=== PATIENT | female | born 1985 | race Caucasian/White ===

== ENCOUNTER → 2016-05-22 | Outpatient (REF) | payer OTHER | LOC: M LAB REF 16:49 | PROVIDERS: ATTEND Obstetrics & Gynecology | DX: Z12.4 Encounter for screening for malignant neoplasm of cervix (principal) ==

== ENCOUNTER → 2017-06-19 | Outpatient (CLI) | payer BC ==
[2017-06-19 16:11] LABS: CONTROL LINE HCG INT CTR LINE PRESENT; HCG, SERUM QUALITATIVE POSITIVE (NEGATIVE)
== END ==
LOC: M LAB 15:19
DX: Z32.00 Encounter for pregnancy test, result unknown (principal)

== ENCOUNTER → 2017-07-09 | Outpatient (REF) | payer BC ==
[2017-07-09 13:53] LABS: HEMATOCRIT 41.3 % (36.0-47.0); MEAN CORPUSCULAR HGB CONC 33.9 g/dl (32.0-36.5); MEAN CORPUSCULAR VOLUME 91.4 fl (80.0-96.0); RED BLOOD COUNT 4.52 10^6/uL (4.00-5.40); RED CELL DISTRIBUTION WIDTH 12.6 % (11.5-14.5); WHITE BLOOD COUNT 6.8 10^3/uL (4.0-10.0)
[2017-07-09 14:53] LABS: HCG, SERUM QUANTITATIVE 55884 MIU/ML
[2017-07-10 08:50] LABS: RUBELLA IgG QUALITATIVE IMMUNE (IMMUNE)
[2017-07-10 09:11] LABS: HEPATITIS B SURFACE ANTIGEN NEGATIVE (NEGATIVE)
[2017-07-10 09:19] LABS: HEPATITIS C VIRUS ABY INDEX < 0.0 INDEX (<0.8)
[2017-07-10 11:32] LABS: HIV 1&2 SCREEN CENTAUR NEGATIVE (NEGATIVE)
== END ==
LOC: M LAB REF 13:12
DX: O36.80X0 Pregnancy with inconclusive fetal viability, not applicable or unspecified (principal)
CPT/HCPCS: 86762

== ENCOUNTER 2017-07-23 06:11 | Day surgery (SDC) | payer BC ==
[2017-07-23] MEDS ORDERED: LR 1,000 ML IV ×3 (06:30→09:00)
[2017-07-23] MEDS ORDERED: fentaNYL 100 MCG/2 ML INJECTION (J3010) As Ordered (06:38)
[2017-07-23] MEDS ORDERED: MIDAZOLAM INJ 2 MG/2 ML VIAL (J2250) As Ordered (06:38)
[2017-07-23] MEDS ORDERED: PROPOFOL 200 MG/20 ML VIAL As Ordered (06:38)
[2017-07-23] MEDS ORDERED: LIDOCAINE 2% INJ 100 MG/5 ML SDV (FOR ANES.) As Ordered (06:38)
[2017-07-23] MEDS ORDERED: ONDANSETRON 4MG/2ML VIAL (J2405) As Ordered (06:39)
[2017-07-23] MEDS ORDERED: dexameTHASONE 4 MG/ML 1ML VIAL (J1100) As Ordered (06:39)
[2017-07-23 06:42] LABS: HEMATOCRIT 40.8 % (36.0-47.0); HEMOGLOBIN 13.9 g/dl (12.0-15.5); MEAN CORPUSCULAR HEMOGLOBIN 30.9 pg (27.0-33.0); MEAN CORPUSCULAR HGB CONC 34.1 g/dl (32.0-36.5); MEAN CORPUSCULAR VOLUME 90.7 fl (80.0-96.0); PLATELET COUNT, AUTOMATED 211 10^3/uL (150-450); RED CELL DISTRIBUTION WIDTH 12.6 % (11.5-14.5); WHITE BLOOD COUNT 5.2 10^3/uL (4.0-10.0)
[2017-07-23] MEDS: LIDOCAINE W/EPINEPHRINE 1% 20ML VIAL As Ordered (06:45)
[2017-07-23] MEDS: ACETAMINOPHEN 650 MG SUPP As Ordered (07:38)
[2017-07-23] MEDS: ACETAMINOPHEN 650 MG SUPP PR (08:23)
[2017-07-23] MEDS ORDERED: KETOROLAC 60 MG/2 ML VIAL (J1885) As Ordered (08:25)
[2017-07-23] MEDS: METHYLERGONOVINE MALEATE 0.2 MG/ML VIAL (J2210) As Ordered (08:30)
[2017-07-23] MEDS ORDERED: fentaNYL 100 MCG/2 ML INJECTION (J3010) IV (09:00)
[2017-07-23] MEDS ORDERED: PERCOCET 5MG/325MG TAB PO (09:00)
[2017-07-23] MEDS ORDERED: ONDANSETRON 4MG/2ML VIAL (J2405) IV (09:00)
[2017-07-23] MEDS: NORCO, ANEXSIA 5/325MG TABLET (HYDROcodone/ACETAMINOPHEN) PO (09:10)
[2017-07-23] MEDS ORDERED: IBUPROFEN 800 MG TAB PO (12:00)
== END 2017-07-23 10:33 | disposition home or self-care (01) ==
LOC: M SDC 06:11
DX: O02.1 Missed abortion (principal); F41.9 Anxiety disorder, unspecified; F32.9 Major depressive disorder, single episode, unspecified; Z88.0 Allergy status to penicillin; Z87.891 Personal history of nicotine dependence
CPT/HCPCS: 59820

== ENCOUNTER 2017-07-27 06:46 | Emergency (ER) | payer BC ==
[2017-07-27 07:22] LABS: BASO # 0.1 10^3/uL (0.0-0.2); BASO % 0.9 % (0.0-1.0); EOS # 0.2 10^3/uL (0.0-0.50); EOS % 4.1 % (0.0-3.0); HEMATOCRIT 34.8 % (36.0-47.0); HEMOGLOBIN 11.7 g/dl (12.0-15.5); IMMATURE GRANULOCYTE % 0.2 % (0-3.0); LYMPH # 1.2 10^3/uL (1.5-6.5); LYMPH % 23.1 % (24.0-44.0); MEAN CORPUSCULAR HEMOGLOBIN 31.1 pg (27.0-33.0); MEAN CORPUSCULAR HGB CONC 33.6 g/dl (32.0-36.5); MEAN CORPUSCULAR VOLUME 92.6 fl (80.0-96.0); MONO # 0.6 10^3/uL (0.0-0.8); MONO % 10.8 % (0.0-5.0); NEUTROPHILS # 3.3 10^3/uL (1.8-7.7); NEUTROPHILS % 60.9 % (36.0-66.0); PLATELET COUNT, AUTOMATED 208 10^3/uL (150-450); RED BLOOD COUNT 3.76 10^6/uL (4.00-5.40); RED CELL DISTRIBUTION WIDTH 12.8 % (11.5-14.5); WHITE BLOOD COUNT 5.4 10^3/uL (4.0-10.0)
[2017-07-27] MEDS: NS 1,000 ML IV (07:39)
[2017-07-27 07:40] LABS: ALBUMIN 3.3 GM/DL (3.2-5.2); ALBUMIN/GLOBULIN RATIO 0.85 (1.00-1.93); ALKALINE PHOSPHATASE 61 U/L (45-117); ALT/SGPT 17 U/L (12-78); ANION GAP 6 MEQ/L (8-16); AST/SGOT 12 U/L (7-37); BILIRUBIN,DIRECT < 0.1 MG/DL (0.0-0.2); BILIRUBIN,TOTAL 0.2 MG/DL (0.2-1.0); BLOOD UREA NITROGEN 13 MG/DL (7-18); CALCIUM LEVEL 8.6 MG/DL (8.5-10.1); CARBON DIOXIDE LEVEL 25 MEQ/L (21-32); CHLORIDE LEVEL 112 MEQ/L (98-107); CREATININE FOR GFR 0.74 MG/DL (0.55-1.30); GLOMERULAR FILTRATION RATE > 60.0 (>60); GLUCOSE, FASTING 92 MG/DL (70-100); LIPASE 130 U/L (73-393); POTASSIUM SERUM 4.3 MEQ/L (3.5-5.1); SODIUM LEVEL 143 MEQ/L (136-145); TOTAL PROTEIN 7.2 GM/DL (6.4-8.2)
[2017-07-27] MEDS: METHYLERGONOVINE MALEATE 0.2 MG TAB PO (09:42)
== END 2017-07-27 09:59 | disposition home or self-care (01) ==
LOC: M ED 06:46
DX: N93.9 Abnormal uterine and vaginal bleeding, unspecified (principal); F33.9 Major depressive disorder, recurrent, unspecified; F41.9 Anxiety disorder, unspecified; Z88.0 Allergy status to penicillin; Z87.891 Personal history of nicotine dependence
CPT/HCPCS: 76856

== ENCOUNTER → 2018-04-09 | Outpatient (REF) | payer BC, OTHER ==
[~2018-04-09] MED LIST: METH0.2T53 PO; NORCOTAB PO
== END ==
LOC: M LABDRAWP 11:07
PROVIDERS: ATTEND Student in an Organized Health Care Education/Training Program
DX: Z32.01 Encounter for pregnancy test, result positive (principal); Z3A.00 Weeks of gestation of pregnancy not specified

== ENCOUNTER → 2018-04-11 | Outpatient (REF) | payer BC, OTHER | LOC: M LABDRAWP 13:45 | PROVIDERS: ATTEND Student in an Organized Health Care Education/Training Program | DX: Z32.01 Encounter for pregnancy test, result positive (principal); Z3A.00 Weeks of gestation of pregnancy not specified ==

== ENCOUNTER → 2018-04-14 | Outpatient (REF) | payer OTHER | LOC: M SFHCPLAZ 12:47 | PROVIDERS: ATTEND Student in an Organized Health Care Education/Training Program | DX: Z32.01 Encounter for pregnancy test, result positive (principal) ==

== ENCOUNTER 2018-04-17 10:48 | Emergency (ER) | payer OTHER ==
[~2018-04-17] VITALS: Ht 160 cm; Wt 79.1 kg
[2018-04-17 11:29] LABS: BASO # 0.1 10^3/uL (0.0-0.2); BASO % 1.1 % (0.0-1.0); EOS # 0.1 10^3/uL (0.0-0.50); EOS % 1.3 % (0.0-3.0); HEMATOCRIT 40.4 % (36.0-47.0); HEMOGLOBIN 13.5 g/dl (12.0-15.5); LYMPH # 1.4 10^3/uL (1.5-4.5); LYMPH % 25.9 % (24.0-44.0); MEAN CORPUSCULAR HEMOGLOBIN 30.2 pg (27.0-33.0); MEAN CORPUSCULAR HGB CONC 33.4 g/dl (32.0-36.5); MEAN CORPUSCULAR VOLUME 90.4 fl (80.0-96.0); MONO # 0.5 10^3/uL (0.0-0.8); MONO % 9.9 % (0.0-5.0); NEUTROPHILS # 3.2 10^3/uL (1.8-7.7); NEUTROPHILS % 61.4 % (36.0-66.0); PLATELET COUNT, AUTOMATED 227 10^3/uL (150-450); RED BLOOD COUNT 4.47 10^6/uL (4.00-5.40); WHITE BLOOD COUNT 5.3 10^3/uL (4.0-10.0)
--- NOTE | 2018-04-17 12:14 | REP ---
First trimester obstetric ultrasound including transabdominal, endovaginal and Doppler ultrasound assessment for vaginal bleeding is present for approximate 2 weeks: The uterus is anteverted and normal size measuring 8.8 x 5.8 x 7.6 cm. There is a fibroid posteriorly on the right measuring 3.1 x 2.7 x 3.5 cm. There is no intrauterine gestation. The endometrium is thickened measuring up to 20 mm. The right ovary measures 3.5 x 1.8 x 3.6 cm and is normal size. There is no dominant right ovarian mass or cyst. There is vascular flow in the right ovary with the Doppler resistive index of the parenchymal arteries measuring 0.50. The left ovary measures 4.3 x 2.7 x 4.4 cm and is normal size. There is a left ovarian cyst measuring 3.9 x 3.3 x 3.9 cm. Lateral to the left ovary there is a small hyperechoic structure of uncertain significance, measuring 12 x 8 x 7 mm. There is a small volume of free fluid in the pelvis. Impression: There is no intrauterine gestation. There is a 12 mm hyperechoic structure lateral to the left ovary. There is a left ovarian 3.9 cm cyst. There is a small volume of free fluid in the pelvis. Findings are nonspecific and could represent early gestation with the pole not yet visible, spontaneous , or ectopic gestation. Followup is recommended. Electronically Signed by Sriram Iverson MD 04/17/2018 12:06 P
[2018-04-17 12:43] VITALS: BP 126/71
== END 2018-04-17 12:45 | disposition home or self-care (01) ==
LOC: M ED 10:48
DX: O20.9 Hemorrhage in early pregnancy, unspecified (principal); O34.81 Maternal care for other abnormalities of pelvic organs, first trimester; N83.202 Unspecified ovarian cyst, left side; O99.341 Other mental disorders complicating pregnancy, first trimester; F41.9 Anxiety disorder, unspecified; F33.9 Major depressive disorder, recurrent, unspecified; Z3A.00 Weeks of gestation of pregnancy not specified; Z88.0 Allergy status to penicillin

== ENCOUNTER → 2018-04-21 | Outpatient (CLI) | payer OTHER ==
--- NOTE | 2018-04-22 09:15 | REP ---
Clinical: Dating and viability. Technique: Transabdominal and transvaginal first trimester obstetrical ultrasound with color Doppler evaluation. Findings: Bladder is distended and measures approximately 16.1 x 9.6 x 10.4 cm. Heterogeneous anteverted uterus measures 9.8 x 4.7 x 7.7 cm and includes 3.2 cm right posterior intramural fibroid. Endometrial complex measures 14.0 mm thickness. No intrauterine is identified. Left ovary measures 4.9 x 4.1 x 4.7 cm with 4.1 cm cyst likely representing corpus luteum. Right ovary is not definitively identified and a right adnexal mass measuring 2.5 x 2.0 x 1.7 cm demonstrating vascularity (RI 0.66) is visualized. Impression: 1. No intrauterine identified. Left ovary with presumed corpus luteal cyst. 2. Rounded mass in the right adnexa may represent ovary versus ectopic. Correlation with physical examination and serial HCG levels are recommended.
== END ==
LOC: M WHC 09:11
PROVIDERS: ATTEND Student in an Organized Health Care Education/Training Program
DX: N83.292 Other ovarian cyst, left side (principal); N85.4 Malposition of uterus; D25.9 Leiomyoma of uterus, unspecified; R19.09 Other intra-abdominal and pelvic swelling, mass and lump

== ENCOUNTER → 2018-04-28 | Outpatient (CLI) | payer OTHER | LOC: M LAB 17:30 | PROVIDERS: ATTEND Student in an Organized Health Care Education/Training Program | DX: Z32.01 Encounter for pregnancy test, result positive (principal) ==

== ENCOUNTER 2018-05-02 15:38 | Outpatient (CLI) | payer OTHER ==
[~2018-05-02] VITALS: Ht 160 cm; Wt 81.0 kg
[2018-05-02 16:00] VITALS: BP 133/61
[2018-05-02] MEDS ORDERED: METHOTREXATE 50MG/2ML VIAL (J9260 PER 50MG) IM ONE (16:00)
[2018-05-02 16:41] LABS: COLOR, URINE MANUAL DK YELLOW (YELLOW); PROTEIN, URINE MANUAL 1+ mg/dL (NEGATIVE)
[2018-05-02 16:42] LABS: BILIRUBIN, URINE MANUAL NEGATIVE (NEGATIVE); GLUCOSE, URINE (UA) MANUAL NEGATIVE (NEGATIVE); KETONE, URINE MANUAL 1+ mg/dL (NEGATIVE); UROBILINOGEN, URINE MANUAL NORMAL (NORMAL)
[2018-05-02 16:43] LABS: BLOOD URINE MANUAL POSITIVE (NEGATIVE); LEUKOCYTE ESTERASE, URINE MAN NEGATIVE (NEGATIVE); NITRITE, URINE MANUAL NEGATIVE (NEGATIVE)
[2018-05-02 17:00] VITALS: BP 107/59
[2018-05-02 17:02] LABS: AMORPHOUS SEDIMENT, URINE SMALL AMOUNT (NEGATIVE); BACTERIA, URINE SMALL AMOUNT; HYALINE CAST, URINE NONE SEEN /lpf (0-1); RBC, URINE 20-30 /hpf (0-3); SQUAMOUS EPITHELIAL CELL URINE LARGE AMOUNT /hpf (SMALL AMT)
[2018-05-07 06:16] LABS: APPEARANCE, URINE MANUAL HAZY (CLEAR)
== END 2018-05-02 17:15 | disposition home or self-care (01) ==
LOC: M LAB 15:38
PROVIDERS: ATTEND Obstetrics & Gynecology
DX: O00.109 Unspecified tubal pregnancy without intrauterine pregnancy (principal)
CPT/HCPCS: 36415; 81000; 86850; 86900; 86901; J9260

== ENCOUNTER → 2018-05-02 | Outpatient (REF) | payer OTHER | LOC: M LAB REF 13:56 | PROVIDERS: ATTEND Obstetrics & Gynecology | DX: Z32.00 Encounter for pregnancy test, result unknown (principal); O00.109 Unspecified tubal pregnancy without intrauterine pregnancy; Z3A.00 Weeks of gestation of pregnancy not specified ==

== ENCOUNTER → 2018-05-02 | Outpatient (CLI) | payer OTHER ==
[2018-05-02 10:52] LABS: HEMATOCRIT 39.3 % (36.0-47.0); HEMOGLOBIN 13.1 g/dl (12.0-15.5); MEAN CORPUSCULAR HEMOGLOBIN 30.3 pg (27.0-33.0); MEAN CORPUSCULAR HGB CONC 33.3 g/dl (32.0-36.5); PLATELET COUNT, AUTOMATED 222 10^3/uL (150-450); RED BLOOD COUNT 4.32 10^6/uL (4.00-5.40)
[2018-05-02 12:05] LABS: ALBUMIN 4.1 GM/DL (3.2-5.2); ALT/SGPT 18 U/L (12-78); BILIRUBIN,TOTAL 0.5 MG/DL (0.2-1.0); BLOOD UREA NITROGEN 7 MG/DL (7-18); CALCIUM LEVEL 8.9 MG/DL (8.5-10.1); CARBON DIOXIDE LEVEL 24 MEQ/L (21-32); CHLORIDE LEVEL 108 MEQ/L (98-107); CREATININE FOR GFR 0.78 MG/DL (0.55-1.30); GLOMERULAR FILTRATION RATE > 60.0 (>60); GLUCOSE, FASTING 91 MG/DL (70-100); HCG, SERUM QUANTITATIVE 5531 MIU/ML; POTASSIUM SERUM 4.2 MEQ/L (3.5-5.1); SODIUM LEVEL 140 MEQ/L (136-145); TOTAL PROTEIN 7.9 GM/DL (6.4-8.2)
== END ==
LOC: M LAB 10:31
PROVIDERS: ATTEND Obstetrics & Gynecology
DX: O00.109 Unspecified tubal pregnancy without intrauterine pregnancy (principal); Z3A.00 Weeks of gestation of pregnancy not specified

== ENCOUNTER → 2018-05-05 | Outpatient (CLI) | payer OTHER | LOC: M LAB 13:13 | PROVIDERS: ATTEND Obstetrics & Gynecology | DX: O00.109 Unspecified tubal pregnancy without intrauterine pregnancy (principal) ==

== ENCOUNTER → 2018-05-08 | Outpatient (CLI) | payer OTHER ==
[2018-05-08 13:54] LABS: HEMATOCRIT 36.6 % (36.0-47.0); HEMOGLOBIN 12.3 g/dl (12.0-15.5); MEAN CORPUSCULAR HEMOGLOBIN 30.1 pg (27.0-33.0); MEAN CORPUSCULAR HGB CONC 33.6 g/dl (32.0-36.5); MEAN CORPUSCULAR VOLUME 89.7 fl (80.0-96.0); PLATELET COUNT, AUTOMATED 215 10^3/uL (150-450); RED BLOOD COUNT 4.08 10^6/uL (4.00-5.40)
== END ==
LOC: M LAB 13:18
PROVIDERS: ATTEND Obstetrics & Gynecology
DX: O00.109 Unspecified tubal pregnancy without intrauterine pregnancy (principal)

== ENCOUNTER → 2018-05-15 | Outpatient (CLI) | payer OTHER | LOC: M LAB 14:23 | PROVIDERS: ATTEND Obstetrics & Gynecology | DX: O02.1 Missed abortion (principal) ==

== ENCOUNTER → 2018-05-21 | Outpatient (CLI) | payer OTHER | LOC: M LAB 07:52 | PROVIDERS: ATTEND Obstetrics & Gynecology | DX: O02.1 Missed abortion (principal) ==

== ENCOUNTER → 2018-05-29 | Outpatient (CLI) | payer OTHER ==
[~2018-05-29] MED LIST changes: +PERC5TAB12 PO
== END ==
LOC: M LAB 08:07
PROVIDERS: ATTEND Obstetrics & Gynecology
DX: O02.1 Missed abortion (principal)

== ENCOUNTER 2018-06-03 13:25 | Emergency (ER) | payer OTHER ==
[~2018-06-03] VITALS: Ht 160 cm; Wt 79.4 kg
[~2018-06-03 13:25] MED LIST changes: +HYDR-3715 PO; -NORCOTAB PO; -PERC5TAB12 PO
[2018-06-03] MEDS ORDERED: KETOROLAC 30 MG/ML VIAL (J1885) IV ONE (14:45)
[2018-06-03 14:57] LABS: BASO # 0.1 10^3/uL (0.0-0.2); BASO % 0.8 % (0.0-1.0); EOS # 0.2 10^3/uL (0.0-0.50); EOS % 2.7 % (0.0-3.0); HEMATOCRIT 39.8 % (36.0-47.0); HEMOGLOBIN 13.2 g/dl (12.0-15.5); LYMPH # 2.1 10^3/uL (1.5-4.5); LYMPH % 27.4 % (24.0-44.0); MEAN CORPUSCULAR HEMOGLOBIN 30.7 pg (27.0-33.0); MEAN CORPUSCULAR HGB CONC 33.2 g/dl (32.0-36.5); MEAN CORPUSCULAR VOLUME 92.6 fl (80.0-96.0); MONO # 0.8 10^3/uL (0.0-0.8); MONO % 10.3 % (0.0-5.0); NEUTROPHILS # 4.4 10^3/uL (1.8-7.7); NEUTROPHILS % 58.5 % (36.0-66.0); PLATELET COUNT, AUTOMATED 283 10^3/uL (150-450); WHITE BLOOD COUNT 7.5 10^3/uL (4.0-10.0)
[2018-06-03 15:11] LABS: INR 0.99; PROTHROMBIN TIME 13.2 SECONDS (12.1-14.4)
[2018-06-03 15:12] LABS: PARTIAL THROMBOPLASTIN TIME 25.9 SECONDS (25.4-37.6)
[2018-06-03 15:25] LABS: ALBUMIN 3.7 GM/DL (3.2-5.2); ALT/SGPT 14 U/L (12-78); BILIRUBIN,DIRECT 0.1 MG/DL (0.0-0.2); BILIRUBIN,TOTAL 0.5 MG/DL (0.2-1.0); BLOOD UREA NITROGEN 13 MG/DL (7-18); CALCIUM LEVEL 9.1 MG/DL (8.5-10.1); CARBON DIOXIDE LEVEL 27 MEQ/L (21-32); CHLORIDE LEVEL 108 MEQ/L (98-107); CREATININE FOR GFR 0.91 MG/DL (0.55-1.30); GLOMERULAR FILTRATION RATE > 60.0 (>60); GLUCOSE, FASTING 91 MG/DL (70-100); LIPASE 114 U/L (73-393); POTASSIUM SERUM 3.9 MEQ/L (3.5-5.1); SODIUM LEVEL 139 MEQ/L (136-145); TOTAL PROTEIN 7.1 GM/DL (6.4-8.2)
--- NOTE | 2018-06-03 15:59 | REP ---
Clinical: Left lower quadrant pain with history of ectopic . Technique: Transabdominal pelvic ultrasound followed by transvaginal examination for better evaluation of the endometrium and adnexa with color Doppler evaluation of the ovaries. Comparison: 07/27/2017 Findings: Bladder is unremarkable and measures 3.5 x 1.3 x 3.3 cm. Anteverted heterogeneous uterus measures 8.5 x 4.4 x 5.0 cm and includes posterior fibroid measuring 3.3 x 2.6 x 3.5 cm. The endometrial complex measures 5.0 mm thickness. Bilateral ovaries are normal in vascularity without evidence for torsion. Right ovary measures 3.9 x 2.8 x 2.0 cm ; R I = 0.55. Left ovary measures 5.8 x 3.8 x 3.6 cm and includes 3.0 cm presumed physiologic cyst and 3.6 x 3.2 x 2.8 cm complex echogenic focus which may represent hemorrhagic cyst or other possible lesion; R I = 0.54. Small to moderate amount of free fluid in the pelvis noted. . Impression: 1. Uterus with 3.5 cm posterior intramural fibroid. 2. Left ovary includes 3.0 cm cyst which is likely physiologic as well as 3.6 cm complex echogenic mass-like lesion which may represent hemorrhagic cyst however other pathology cannot be excluded. Follow-up examination in 4-6 weeks may be warranted to evaluate for resolution. Electronically Signed by Hector Alfredo MD 06/03/2018 03:50 P
[2018-06-03 16:29] LABS: HCG, SERUM QUANTITATIVE 26 MIU/ML
[2018-06-03] MEDS ORDERED: NS 1,000 ML IV ONE (17:15)
[2018-06-03] MEDS ORDERED: PERC5TAB12 PO (17:29)
[2018-06-03 17:44] VITALS: BP 124/56
[2018-06-03] MEDS ORDERED: PERCOCET 5MG/325MG TAB PO ONE (18:00)
--- NOTE | 2018-06-03 20:09 | HPE ---
DATE OF ADMISSION: 06/03/2018 A 32-year-old 2, para 0 female, presents with left-sided abdominal pain, increasing intensity as high as 8 out of 10, starting today. She has had intermittent pain on and off due to an ectopic , currently being treated with methotrexate. For pain management, she takes naproxen that her has or she has taken occasional Fioricet with some relief. She has light vaginal bleeding intermittently. This is a presentation to the emergency room (ER) where she was evaluated. MEDICAL HISTORY: 1. Cervical dysplasia. 2. Depression. SURGICAL HISTORY: 1. Loop electrosurgical excision procedure (LEEP), cone biopsy of the cervix. 2. Dilatation and curettage (D and C) procedure in 2014 for missed . ALLERGIES: PENICILLINS. SOCIAL HISTORY: Patient is . Denies cigarettes, alcohol, or drug use. FAMILY HISTORY: Noncontributory. PHYSICAL EXAMINATION: Blood pressure 124/56, pulse 56, respiratory rate 18, temperature 99.0, oxygen saturation 98%, room air. Appears mildly uncomfortable. Head and Neck Exam: Normal. Lungs: Clear. Heart: Regular rate and rhythm. Abdomen: Mildly tender in the left lateral side, near the mid axillary line. Soft, nondistended. No rebound, no guarding. Normoactive bowel sounds. Extremities: Nontender. Ultrasound: Normal endometrial stripe. Small amount of free fluid in the posterior cul-de-sac, pelvis, 3 cm complex mass left adnexa, hemorrhagic cyst versus other pathology. LABORATORY: Reveal the following: HCG levels - 05/08/2018 was 3255; 05/15/2018 was 927; 05/21/2018 was 399; 05/29/2018 was 193, 06/03/2018 was 26. Hemoglobin 13.2 grams per deciliter. ASSESSMENT: A 32-year-old 2, para 0-0-1-0 female, status post treatment with methotrexate, presents with abdominal pain. She has steadily decreasing beta hCG levels and along with stable vital signs and hemoglobin. PLAN: Will plan to continue expectant management because hCG levels are almost imperceptible. Patient should take something for pain other than nonsteroidals due to possible blood-thinning effects. Patient will be given a prescription for Percocet to take only when absolutely needed. She will followup with Dr. Jara next week for repeat hCG and evaluation. She was instructed to return to the ER for worsening pain.
--- NOTE | 2018-06-04 09:30 | ED PDOC ---
Post-Departure Follow-Up dr handley faxed formal report of pelvic us for fu Sonya Gerardo MD Jun 04, 2018 09:30
== END 2018-06-03 18:38 | disposition home or self-care (01) ==
LOC: M ED 13:25
DX: E28.2 Polycystic ovarian syndrome (principal); Z87.442 Personal history of urinary calculi; F41.9 Anxiety disorder, unspecified; F32.9 Major depressive disorder, single episode, unspecified
CPT/HCPCS: 76830; 76856; 80048; 80076; 81001; 81025; 83690; 84702; 85025; 85610; 85730; 87086; 93976; 96374; 99284; J1885

== ENCOUNTER → 2018-06-05 | Outpatient (CLI) | payer OTHER ==
[~2018-06-05] MED LIST changes: +PERC5TAB12 PO
== END ==
LOC: M LAB 08:08
PROVIDERS: ATTEND Obstetrics & Gynecology
DX: O02.1 Missed abortion (principal)

== ENCOUNTER → 2018-06-12 | Outpatient (CLI) | payer OTHER | LOC: M LAB 07:46 | PROVIDERS: ATTEND Obstetrics & Gynecology | DX: O02.1 Missed abortion (principal) ==

== ENCOUNTER 2018-08-29 10:47 | Emergency (ER) | payer OTHER ==
[~2018-08-29] VITALS: Ht 160 cm; Wt 73.4 kg
[2018-08-29] MEDS ORDERED: SPRI28TA PO (10:53)
[2018-08-29] MEDS ORDERED: PAXI40TA10 PO (10:53)
--- NOTE | 2018-08-29 12:00 | REP ---
Left hand series: Four views. History: Left hand pain. Findings: Four views of the left hand demonstrate overall normal mineralization. There is no evidence of fracture or subluxation. Bones, joints, and soft tissues are unremarkable. Impression: Negative radiographs of the left hand. Electronically Signed by Stanley Chavez MD 08/29/2018 11:51 A
[2018-08-29 13:00] VITALS: BP 145/69
== END 2018-08-29 13:07 | disposition home or self-care (01) ==
LOC: M ED 10:47
DX: G56.02 Carpal tunnel syndrome, left upper limb (principal); Z88.0 Allergy status to penicillin; Z79.899 Other long term (current) drug therapy; Z79.3 Long term (current) use of hormonal contraceptives

== ENCOUNTER 2018-09-12 04:51 | Emergency (ER) | payer OTHER ==
[~2018-09-12] VITALS: Ht 160 cm; Wt 73.4 kg
[~2018-09-12 04:51] MED LIST changes: +PAXI40TA10 PO; +SPRI28TA PO
[2018-09-12] MEDS ORDERED: KETOROLAC 60 MG/2 ML VIAL (J1885) IM ONE (07:00)
[2018-09-12] MEDS ORDERED: KETO10TAB PO ×2 (07:38→11:01)
[2018-09-12 07:58] VITALS: BP 128/75
== END 2018-09-12 08:11 | disposition home or self-care (01) ==
LOC: M ED 04:51
DX: K08.89 Other specified disorders of teeth and supporting structures (principal); Z79.899 Other long term (current) drug therapy; Z88.0 Allergy status to penicillin
CPT/HCPCS: 96372; 99283; J1885

== ENCOUNTER → 2019-09-01 | Outpatient (REF) | payer OTHER ==
[~2019-09-01] MED LIST changes: +KETO10TAB PO
[2019-09-01 18:32] LABS: FREE T4 0.96 NG/DL (0.76-1.46); THYROID STIMULATING HORMONE 0.818 uIU/ML (0.358-3.740)
== END ==
LOC: M SFHCPLAZ 15:48
PROVIDERS: ATTEND Student in an Organized Health Care Education/Training Program
DX: R00.2 Palpitations (principal)

== ENCOUNTER → 2019-09-23 | Outpatient (REF) | payer OTHER ==
[2019-09-23 14:54] LABS: ALBUMIN 3.8 GM/DL (3.2-5.2); ALT/SGPT 21 U/L (12-78); BILIRUBIN,TOTAL 0.5 MG/DL (0.2-1.0); BLOOD UREA NITROGEN 13 MG/DL (7-18); CALCIUM LEVEL 9.2 MG/DL (8.5-10.1); CARBON DIOXIDE LEVEL 28 MEQ/L (21-32); CHLORIDE LEVEL 106 MEQ/L (98-107); CREATININE FOR GFR 0.83 MG/DL (0.55-1.30); GLOMERULAR FILTRATION RATE > 60.0 (>60); GLUCOSE, FASTING 75 MG/DL (70-100); POTASSIUM SERUM 4.5 MEQ/L (3.5-5.1); SODIUM LEVEL 137 MEQ/L (136-145); TOTAL PROTEIN 7.4 GM/DL (6.4-8.2)
== END ==
LOC: M SFHCPLAZ 10:48
PROVIDERS: ATTEND Family Medicine
DX: R51 Headache (principal); R00.2 Palpitations

== ENCOUNTER → 2019-10-28 | Outpatient (REF) | payer OTHER | LOC: M WHC 14:00 | PROVIDERS: ATTEND Nurse Practitioner Women's Health | DX: Z12.4 Encounter for screening for malignant neoplasm of cervix (principal) ==

== ENCOUNTER → 2020-01-01 | Outpatient (REF) | payer OTHER | LOC: M SFHCPLAZ 10:38 | PROVIDERS: ATTEND Family Medicine | DX: Z13.21 Encounter for screening for nutritional disorder (principal) ==

== ENCOUNTER 2020-02-15 13:27 | Emergency (ER) | payer OTHER ==
[~2020-02-15] VITALS: Ht 160 cm; Wt 86.0 kg
[2020-02-15] MEDS ORDERED: BUSP15TA47 (13:38)
--- NOTE | 2020-02-15 14:46 | REP ---
INDICATION: fall. COMPARISON: Abdomen and pelvis CT dated 12/02/2013. TECHNIQUE: There are three views. FINDINGS: There is a questionable fracture of the distal sacrum on the lateral view. Consider CT for confirmation. The sacral a ala and foramen are otherwise unremarkable. The sacroiliac articulations are unremarkable. IMPRESSION: Questionable sacral fracture. Consider CT for confirmation. <Electronically signed by Sriram Iverson > 02/15/20 [id number]
--- NOTE | 2020-02-15 15:35 | REP ---
INDICATION: possible sacral fracture. COMPARISON: Plain film study of the sacrum earlier today. TECHNIQUE: CT of the pelvis without IV or bowel contrast. FINDINGS: There is no sacral fracture by CT. There is no pelvic fracture by CT. There is no free fluid in the pelvis. The bladder is unremarkable. There is a right adnexal cyst measuring 3.2 x 5.6 cm. Left adnexa is unremarkable. The uterus is unremarkable. IMPRESSION: No sacral or pelvic fracture. Right adnexal cyst as described. <Electronically signed by Sriram Iverson > 02/15/20 [id number]
[2020-02-15] MEDS ORDERED: IBUPROFEN 800 MG TAB PO ONE (15:45)
[2020-02-15 16:15] VITALS: BP 141/94
== END 2020-02-15 16:17 | disposition home or self-care (01) ==
LOC: M ED 13:27
DX: S30.0XXA Contusion of lower back and pelvis, initial encounter (principal); W10.8XXA Fall (on) (from) other stairs and steps, initial encounter; Y92.9 Unspecified place or not applicable; Y93.9 Activity, unspecified; Y99.9 Unspecified external cause status; N83.291 Other ovarian cyst, right side; F33.9 Major depressive disorder, recurrent, unspecified; F41.9 Anxiety disorder, unspecified; Z88.0 Allergy status to penicillin; Z79.899 Other long term (current) drug therapy

== ENCOUNTER → 2020-02-22 | Outpatient (REF) | payer OTHER ==
[~2020-02-22] MED LIST changes: +BUSP15TA47
[2020-02-22 14:08] LABS: HCG, SERUM QUALITATIVE NEGATIVE (NEGATIVE)
== END ==
LOC: M SFHCPLAZ 09:11
PROVIDERS: ATTEND Family Medicine
DX: Z32.00 Encounter for pregnancy test, result unknown (principal)

== ENCOUNTER → 2020-03-07 | Outpatient (CLI) | payer OTHER ==
--- NOTE | 2020-03-07 11:35 | REP ---
INDICATION: N83.201 RT OVARIAN CYST COMPARISON: CT dated 02/15/2020 and pelvic ultrasound dated 06/03/2018 TECHNIQUE: Transabdominal pelvic ultrasound followed by transvaginal examination for better evaluation of the endometrium and adnexa with color Doppler evaluation of the ovaries. FINDINGS: Bladder is unremarkable and measures 9.3 x 6.9 x 13.9 cm. Normal anteverted uterus measures 8.9 x 4.5 x 4.9 cm. The endometrial complex measures 2.9 mm thickness. 3.5 x 3.3 x 3.6 cm posterior subserosal heterogeneous hypoechoic lesion likely represents fibroid. Right ovary measures 5.6 x 2.6 x 2.7 cm and includes 4.8 x 2.3 x 2.1 cm with 1 cm daughter cyst. Left ovary appears normal and measures 3.2 x 1.7 x 1.3 cm. No pelvic fluid or adnexal mass lesion. IMPRESSION: 1. Posterior subserosal fibroid unchanged compared to prior pelvic ultrasound. 2. Right ovarian cyst with small daughter cyst is likely physiologic and may represent the cyst on prior CT dated 02/15/2020, but represents a new finding as compared to pelvic ultrasound dated 06/03/2018. Consider follow-up ultrasound in 4-6 weeks if the patient remains symptomatic. <Electronically signed by Hector Alfredo > 03/07/20 [id number]
== END ==
LOC: M WHC 10:56
PROVIDERS: ATTEND Student in an Organized Health Care Education/Training Program
DX: N83.201 Unspecified ovarian cyst, right side (principal)

== ENCOUNTER → 2020-03-22 | Outpatient (REF) | payer OTHER ==
[2020-03-22 18:15] LABS: APPEARANCE, URINE HAZY (CLEAR); BACTERIA, URINE AUTO NEGATIVE (NEGATIVE); BILIRUBIN, URINE AUTO NEGATIVE (NEGATIVE); BLOOD, URINE BLOOD NEGATIVE (NEGATIVE); COLOR, URINE YELLOW (YELLOW); GLUCOSE, URINE (UA) AUTO NEGATIVE (NEGATIVE); KETONE, URINE AUTO NEGATIVE (NEGATIVE); LEUKOCYTE ESTERASE, URINE AUTO 2+ (NEGATIVE); MUCUS, URINE SMALL (NEGATIVE); NITRITE, URINE AUTO NEGATIVE (NEGATIVE); PROTEIN, URINE AUTO NEGATIVE (NEGATIVE); RBC, URINE AUTO 2 /HPF (0-3); SPECIFIC GRAVITY URINE AUTO 1.025 (1.002-1.035); SQUAMOUS EPITHELIAL CELL UR AU 7 /HPF (0-6); UROBILINOGEN, URINE AUTO 0.2 mg/dL (0.0-2.0); WBC, URINE AUTO 5 /HPF (0-3)
[2020-03-22 18:31] LABS: BLOOD UREA NITROGEN 16 MG/DL (7-18); CALCIUM LEVEL 9.5 MG/DL (8.5-10.1); CARBON DIOXIDE LEVEL 30 MEQ/L (21-32); CHLORIDE LEVEL 106 MEQ/L (98-107); CHOLESTEROL LEVEL 181 MG/DL (<200); CREATININE FOR GFR 0.88 MG/DL (0.55-1.30); GLOMERULAR FILTRATION RATE > 60.0 (>60); GLUCOSE, FASTING 92 MG/DL (70-100); HDL CHOLESTEROL 58 MG/DL (>40); LDL CHOLESTEROL 95 MG/DL (<100); NON-HDL-C 123 MG/DL; POTASSIUM SERUM 4.7 MEQ/L (3.5-5.1); SODIUM LEVEL 139 MEQ/L (136-145); TRIGLYCERIDES LEVEL 140 MG/DL (<150)
[2020-03-22 19:20] LABS: HEMOGLOBIN A1c 5.2 %
[2020-03-22 19:24] LABS: BASO # 0.1 10^3/uL (0.0-0.2); BASO % 0.8 % (0.0-1.0); EOS # 0.1 10^3/uL (0.0-0.5); EOS % 1.2 % (0.0-3.0); HEMATOCRIT 40.9 % (36.0-47.0); HEMOGLOBIN 13.4 g/dl (12.0-15.5); LYMPH # 1.9 10^3/uL (1.5-5.0); LYMPH % 24.5 % (24.0-44.0); MEAN CORPUSCULAR HEMOGLOBIN 30.5 pg (27.0-33.0); MEAN CORPUSCULAR HGB CONC 32.8 g/dl (32.0-36.5); MEAN CORPUSCULAR VOLUME 93.2 fl (80.0-96.0); MONO # 0.8 10^3/uL (0.0-0.8); MONO % 10.4 % (0.0-5.0); NEUTROPHILS # 4.8 10^3/uL (1.5-8.5); NEUTROPHILS % 62.8 % (36.0-66.0); PLATELET COUNT, AUTOMATED 138 10^3/uL (150-450); RED BLOOD COUNT 4.39 10^6/uL (4.00-5.40); WHITE BLOOD COUNT 7.6 10^3/uL (4.0-10.0)
== END ==
LOC: M SFHCPLAZ 14:43
PROVIDERS: ATTEND Family Medicine
DX: Z13.1 Encounter for screening for diabetes mellitus (principal); R10.9 Unspecified abdominal pain; Z13.220 Encounter for screening for lipoid disorders

== ENCOUNTER → 2020-06-24 | Outpatient (REF) | payer OTHER ==
[2020-06-24 14:13] LABS: APPEARANCE, URINE CLEAR (CLEAR); BACTERIA, URINE AUTO NEGATIVE (NEGATIVE); BILIRUBIN, URINE AUTO NEGATIVE (NEGATIVE); BLOOD, URINE BLOOD 1+ (NEGATIVE); COLOR, URINE YELLOW (YELLOW); GLUCOSE, URINE (UA) AUTO NEGATIVE (NEGATIVE); KETONE, URINE AUTO NEGATIVE (NEGATIVE); LEUKOCYTE ESTERASE, URINE AUTO NEGATIVE (NEGATIVE); MUCUS, URINE SMALL (NEGATIVE); NITRITE, URINE AUTO NEGATIVE (NEGATIVE); PROTEIN, URINE AUTO NEGATIVE (NEGATIVE); RBC, URINE AUTO 0 /HPF (0-3); SPECIFIC GRAVITY URINE AUTO 1.019 (1.002-1.035); SQUAMOUS EPITHELIAL CELL UR AU 1 /HPF (0-6); UROBILINOGEN, URINE AUTO 0.2 mg/dL (0.0-2.0); WBC, URINE AUTO 0 /HPF (0-3)
[2020-06-24 14:41] LABS: HCG, SERUM QUALITATIVE NEGATIVE (NEGATIVE)
== END ==
LOC: M PLALAB 13:33
PROVIDERS: ATTEND Student in an Organized Health Care Education/Training Program
DX: R10.9 Unspecified abdominal pain (principal)

== ENCOUNTER → 2020-06-24 | Outpatient (REF) | payer OTHER | LOC: M SFHCPLAZ 10:28 | PROVIDERS: ATTEND Family Medicine | DX: Z53.9 Procedure and treatment not carried out, unspecified reason (principal); R10.9 Unspecified abdominal pain ==

== ENCOUNTER → 2020-07-12 | Outpatient (REF) | payer OTHER ==
[2020-07-12 10:31] LABS: APPEARANCE, URINE CLEAR (CLEAR); BACTERIA, URINE AUTO NEGATIVE (NEGATIVE); BILIRUBIN, URINE AUTO NEGATIVE (NEGATIVE); BLOOD, URINE BLOOD NEGATIVE (NEGATIVE); COLOR, URINE YELLOW (YELLOW); GLUCOSE, URINE (UA) AUTO NEGATIVE (NEGATIVE); KETONE, URINE AUTO NEGATIVE (NEGATIVE); LEUKOCYTE ESTERASE, URINE AUTO NEGATIVE (NEGATIVE); NITRITE, URINE AUTO NEGATIVE (NEGATIVE); PROTEIN, URINE AUTO NEGATIVE (NEGATIVE); RBC, URINE AUTO 0 /HPF (0-3); SPECIFIC GRAVITY URINE AUTO 1.012 (1.002-1.035); SQUAMOUS EPITHELIAL CELL UR AU 1 /HPF (0-6); UROBILINOGEN, URINE AUTO 0.2 mg/dL (0.0-2.0); WBC, URINE AUTO 1 /HPF (0-3)
== END ==
LOC: M SFHCPLAZ 09:35
PROVIDERS: ATTEND Student in an Organized Health Care Education/Training Program
DX: R35.0 Frequency of micturition (principal)

== ENCOUNTER → 2020-07-15 | Outpatient (REF) | payer OTHER ==
[2020-07-15 17:46] LABS: HCG, SERUM QUALITATIVE NEGATIVE (NEGATIVE)
== END ==
LOC: M PLALAB 14:17
PROVIDERS: ATTEND Student in an Organized Health Care Education/Training Program
DX: R35.0 Frequency of micturition (principal)

== ENCOUNTER → 2020-07-18 | Outpatient (CLI) | payer OTHER ==
--- NOTE | 2020-07-19 03:10 | REP ---
INDICATION: RT FLANK PAIN ? STONES COMPARISON: 12/02/2013 TECHNIQUE: Axial noncontrast images from the lung bases to the pubic symphysis with coronal and sagittal reformations. This CT examination was performed using the following dose reduction techniques: Automated exposure control, adjustment of mA and/or kv according to the patient's size, and use of iterative reconstruction technique. FINDINGS: Lung bases are clear. Visualized heart and pericardium normal. Right kidney includes 3 mm and 5 mm nonobstructing nephroliths while the left kidney includes 2 mm nonobstructing nephrolith. No acute perinephric stranding, hydroureteronephrosis or obstructing ureteral calculus is identified. Bilateral ureters and bladder appear normal. Liver, spleen, pancreas, gallbladder, bilateral adrenal glands are normal. The enteric system is unremarkable and without obstruction or acute inflammatory process. Normal terminal ileum and appendix identified in the right lower quadrant. Pelvis demonstrates normal bladder and age-appropriate uterus/adnexa. No ascites. No free air. No adenopathy. No focal inflammatory stranding. Abdominal aorta without aneurysm. Musculoskeletal structures are intact and without acute osseous abnormality. IMPRESSION: Nonobstructing bilateral nephrolithiasis. <Electronically signed by Hector Alfredo > 07/19/20 [id number]
== END ==
LOC: M RAD 07:47
PROVIDERS: ATTEND Student in an Organized Health Care Education/Training Program
DX: R10.9 Unspecified abdominal pain (principal)

== ENCOUNTER → 2020-08-04 | Outpatient (CLI) | payer OTHER ==
--- NOTE | 2020-08-04 16:35 | REP ---
INDICATION: URINATION FREQUENCY COMPARISON: None TECHNIQUE: Real time B-mode ultrasound examination using curved array transducer. FINDINGS: Bladder is normal in appearance without wall thickening or mass lesion. Left ureteral jet is identified while the right ureteral jet was not visualized during examination. Prevoid bladder measures 13.6 x 8.7 x 4.8 cm (371 cc). Postvoid bladder completely emptied. Postvoid residual: 0% IMPRESSION: 1. No visible right ureteral jet noted during examination and correlation is recommended. 2. Bladder itself is unremarkable. <Electronically signed by Hector Alfredo > 08/04/20 [id number]
== END ==
LOC: M RAD 16:00
PROVIDERS: ATTEND Student in an Organized Health Care Education/Training Program
DX: R35.0 Frequency of micturition (principal)

== ENCOUNTER → 2020-08-09 | Outpatient (REF) | payer OTHER | LOC: M SFHCPLAZ 16:28 | PROVIDERS: ATTEND Family Medicine | DX: Z78.9 Other specified health status (principal) ==

== ENCOUNTER → 2020-12-13 | Outpatient (REF) | payer OTHER | LOC: M SFHCWAGY 19:03 | PROVIDERS: ATTEND Obstetrics & Gynecology | DX: Z12.4 Encounter for screening for malignant neoplasm of cervix (principal); R87.610 Atypical squamous cells of undetermined significance on cytologic smear of cervix (ASC-US) ==

== ENCOUNTER 2021-01-22 05:10 | Emergency (ER) | payer OTHER ==
[~2021-01-22] VITALS: Ht 160 cm; Wt 90.0 kg
[2021-01-22] MEDS ORDERED: VENL37.598 (05:26)
[2021-01-22] MEDS ORDERED: ETON1VAG3 (05:26)
[2021-01-22 06:08] LABS: BASO # 0.1 10^3/uL (0.0-0.2); EOS # 0.2 10^3/uL (0.0-0.5); EOS % 3.2 % (0.0-3.0); HEMATOCRIT 40.4 % (36.0-47.0); HEMOGLOBIN 13.6 g/dl (12.0-15.5); LYMPH # 2.2 10^3/uL (1.5-5.0); LYMPH % 34.3 % (24.0-44.0); MEAN CORPUSCULAR HEMOGLOBIN 30.8 pg (27.0-33.0); MEAN CORPUSCULAR HGB CONC 33.7 g/dl (32.0-36.5); MEAN CORPUSCULAR VOLUME 91.4 fl (80.0-96.0); MONO # 0.5 10^3/uL (0.0-0.8); MONO % 7.3 % (2.0-8.0); NEUTROPHILS # 3.4 10^3/uL (1.5-8.5); NEUTROPHILS % 53.9 % (36.0-66.0); PLATELET COUNT, AUTOMATED 273 10^3/uL (150-450); RED BLOOD COUNT 4.42 10^6/uL (4.00-5.40); WHITE BLOOD COUNT 6.3 10^3/uL (4.0-10.0)
[2021-01-22] MEDS ORDERED: ONDANSETRON 4MG/2ML VIAL IV ONE (06:35)
[2021-01-22] MEDS ORDERED: KETOROLAC 30 MG/ML 1ML VIAL IV ONE (06:35)
[2021-01-22] MEDS ORDERED: NS 1,000 ML IV ONE (06:35)
--- NOTE | 2021-01-22 06:37 | REPVR ---
PROCEDURE INFORMATION: Exam: CT Abdomen And Pelvis Without Contrast Exam date and time: 01/22/2021 5:44 AM Age: 35 years old Clinical indication: Abdominal pain; Flank; Right; Additional info: Rule out nephrolithiasis TECHNIQUE: Imaging protocol: Computed tomography of the abdomen and pelvis without contrast. Radiation optimization: All CT scans at this facility use at least one of these dose optimization techniques: automated exposure control; mA and/or kV adjustment per patient size (includes targeted exams where dose is matched to clinical indication); or iterative reconstruction. COMPARISON: 1. CT ABD PELVIS W/O CONTRAST 2020-07-18 08:[address] Pelvis without contrast 2020-02-15 15:14 FINDINGS: Liver: Normal. No mass. Gallbladder and bile ducts: Normal. No calcified stones. No ductal dilation. Pancreas: Normal. No ductal dilation. Spleen: Normal. No splenomegaly. Adrenal glands: Normal. No mass. Kidneys and ureters: Obstructing right ureteral pelvic 5 x 5 mm calculus with moderate right hydronephrosis. Swelling of the right kidney. Stomach and bowel: Unremarkable. No obstruction. No mucosal thickening. Appendix: No evidence of appendicitis. Intraperitoneal space: Unremarkable. No free air. No significant fluid collection. Vasculature: Unremarkable. No abdominal aortic aneurysm. Lymph nodes: Unremarkable. No enlarged lymph nodes. Urinary bladder: Unremarkable as visualized. Reproductive: Suspect uterine fibroids. Bones/joints: Unremarkable. No acute fracture. Soft tissues: Unremarkable. Other findings: Nonobstructing additional couple small 2-3 mm calculi. IMPRESSION: 1. Obstructing right ureteral pelvic 5 x 5 mm calculus with moderate right hydronephrosis. 2. Nonobstructing additional couple small 2-3 mm calculi. Electronically signed by: Eitan Hirsch On 01/22/2021 06:36:47 AM
[2021-01-22 06:38] LABS: BLOOD UREA NITROGEN 16 MG/DL (7-18); CALCIUM LEVEL 8.7 MG/DL (8.5-10.1); CARBON DIOXIDE LEVEL 23 MEQ/L (21-32); CHLORIDE LEVEL 111 MEQ/L (98-107); CREATININE FOR GFR 0.96 MG/DL (0.55-1.30); GLOMERULAR FILTRATION RATE > 60.0 (>60); GLUCOSE, FASTING 92 MG/DL (70-100); POTASSIUM SERUM 3.9 MEQ/L (3.5-5.1); SODIUM LEVEL 141 MEQ/L (136-145)
--- OUTSIDE RECORDS SUMMARY | 2021-01-22 06:41 | CCD ---
Author Author [facility] Organization [facility] Address Unknown Phone Unavailable Care Team Providers Care Claim Approver Name Role Phone Gracie Ram Unavailable PROBLEMS Type Condition ICD9-CM Code [id number] Code Onset Dates Condition S tatus W/U Status Risk SNOMED Code Notes Problem Adjustment disorder with depressed mood F43.21 Active confirmed 83681492 Problem Miscarried within last 12 months Z87.59 Active confirmed 932967109 Problem Panic disorder [episodic paroxysmal anxiety] F41.0 Active confirmed 728448070 Problem Vaccination refused by patient Z28.21 Active c onfirmed 235184111742 Problem Recommendation refused by patient Z53.20 Active confirmed 827568282 Problem Intermittent palpitations R00.2 Active confirmed 135217452 Problem Contusion of coccyx, sequela S30.0XXS Active confir med 079470301 Problem Generalized anxiety disorder F41.1 Active confirme d 24356123 Problem BMI 33.0-33.9,adult Z68.33 Active confirmed 740477910 Problem Thrombocytopenia D69.6 Active confirmed 415 586799 Problem Patient refused evaluation or treatment Z53.20 Active confirmed 909112236 Problem Other chronic pain G89.29 Active confirmed 8 9142233 Problem Right flank pain R10.9 Active confirmed 162 867109 Problem Anxiety disorder, unspecified F41.9 Active confirm ed 259018476 Problem Bilateral nephrolithiasis N20.0 Active confirmed 00831170 Problem Ovarian cyst, right N83.201 Active confirmed 59985635133298677 Problem Routine general medical examination at a [facility] acility Z00.00 Active confirmed 979930759 Problem Depression F32.9 Active confirmed 58453237 Problem Urination frequency R35.0 Active confirmed 549589848 Problem Noncompliance Z91.19 Active confirmed 764923 9 Problem Feeling of incomplete bladder emptying R39.14 A ctive confirmed 276356103 Problem Low back pain M54.5 Active confirmed 155829 009 ALLERGIES Allergen (clinical drug ingredient) Drug/Non Drug Allergy do cumented on EMR Reaction Allergy Type Onset Date Status penicillian Rash Non Drug Allergy Active ENCOUNTERS from 1987 to 2020-11-27 Encounter Location Date Provider Diagnosis [facility] [place] [address] [phone] [place] [address] July, Gracie Ram Urination frequency R35.0 ; Feeling of incomplete bladder emptying R39.14 ; Low back pain M54.5 ; Patient refused evaluation or treatment Z53.20 and Noncompliance Z91.19 IMMUNIZATIONS Vaccine Route Administration Date Status TD Adult 0.5mL Tetanus IM Intramuscular August 09, 2020 Administ ered SOCIAL HISTORY Tobacco Use: Social History Observation Description Date Details (start date - stop date) Current Smoker Sex Assigned At : Social History Observation Description Sex Assigned At Unknown Education: Question Answer Notes Level of Education: High School Audit Question Answer Notes Total Score: 0 Interpretation: Alcohol Education Language: Question Answer Notes Languages spoken: Slovak Protestant: Question Answer Notes Protestant No islam beliefs that would impact health care. Sexual Hx: Question Answer Notes Had sex in the last 12 months (vaginal, oral, or anal)? Yes with Men only Use protection? Yes Drug and Alcohol Question Answer Notes Total Score: 0 Interpretation: No problems reported Tobacco Use: Question Answer Notes Are you a: current smoker Additional Findings: Tobacco User REASON FOR REFERRAL No Information VITAL SIGNS Weight 197.6 lbs July, Height 63 in July, BMI 35.00 kg/m2 July, Heart Rate 78 /min July, Respiratory Rate 18 /min July, Temperature 98.3 degrees Fahrenheit July, Oximetry 97 July, Blood pressure systolic 114 mm Hg July, Blood pressure diastolic 72 mm Hg July, MEDICATIONS Medication SIG (Take, Route, Frequency, Duration) Notes Start Da te End Date Status Paxil 40 MG 1 tablet in the morning Orally Once a day for 90 day(s) Active Sulfamethoxazole-Trimethoprim 800-160 MG 1 tablet Oral ly Twice a day for 14 day(s) Mar, Not-Taking busPIRone HCl 15 MG 1 tablet Orally Twice a day(total 25mg in AM , 15mg in PM) Feb, Active Tamsulosin HCl 0.4 MG 1 capsule Orally Once a day for 21 day(s) July, Active Folic Acid 400 MCG 1 tablet Orally Once a day for 90 day(s) Mar, Not-Taking Sprintec 28 0.25-35 MG-MCG 1 tablet Orally Once a day for 90 day(s) Active busPIRone HCl 10 MG 1 tablet Orally in AM(total 25mg in AM and 1 5mg in PM) Feb, Active PROCEDURES No Information RESULTS Component Value Reference Range UA URINALYSIS Reviewed date:07/17/2020 22:04:16 Interpretation: Performing Lab:[facility], [facility] [address] [facility] [address] , ,[place] [address] BLADDER U/S Reviewed date:11/23/2020 14:20:03 Interpretation:07/28/20 @1:30 Performing Lab:[facility], [place] [address] REASON FOR VISIT follow up results MEDICAL (GENERAL) HISTORY Type Description Date Medical History ABNORMAL PAP Medical History ABNORMAL JUILETA Surgical History breast biopsy - left 2009 Surgical History lump in left breast removed-- Benign 2014 Surgical History LEEP procedure (womans persp ective)-- Severe squamous dysplasia (SUSANA III ). 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 UA and bladder US ordered. HCG ordered to rule out as patient as patient reported urinary frequency, incomplete bladder emptying, and also has upcoming abd/pelvis CT appointment. Patient is aware she needs to contact clinic or seek immediate medical care if she has any fever, chills, urinary urgency//dysuria, suprapubic pain, or flank pain. All the above findings, exam, assessments, and plans were discussed with precepting attending during office hour 07/12/2020July, Feeling of incomplete bladder emptying (ICD-10 - R39.14) Patient self-reported urinary frequency as well as the sensation of incomplete bladder emptying. UA and bladder US ordered. HCG ordered to rule out as patient as patient reported urinary frequency, incomplete bladder emptying, and also has upcoming abd/pelvis CT appointment. Patient is aware she needs to contact clinic or seek immediate medical care if she has any fever, chills, urinary urgency//dysuria, suprapubic pain, or flank pain All the above findings, exam, assessments, and plans were discussed with precepting attending during office hour 07/12/2020July, Low back pain (ICD-10 - M54.5) Back exercises material was printed Likely associated with referred pain from ovarian cyst vs muscle strain. Patient declined physical therapy. Advised Tylenol and ibuprofen as needed, daily maximum dose of 3000 mg of Tylenol and Ibuprofen discussed were discussed with the patient. Safety plan discussed with patient regarding when to seek immediate medical attention: worsening back pain, increased bowel incontinence, urinary incontinence, inner thigh paresthesia, or extremity weakness; the above was discussed with patient in details and patient verbalized that she will go to the ER if she has the above symptoms. All the above findings, exam, assessments, and plans were discussed with precepting attending during office hour 07/12/2020July, Patient refused evaluation or treatment (ICD-10 - Z53.20) Patient refused to be on folic acid, risks of not taking folic acid were discussed with the patient including if she becomes the fetus/baby may have neural tube defects, patient verbalized understanding of the risks. Patient refused physical therapy referral for her low back pain. All the above findings, exam, assessments, and plans were discussed with precepting attending during office hour 07/12/2020July, Noncompliance (ICD-10 - Z91.19) HCG previously ordered and told patient to ONLY has HCG testing done two days prior to her abd/pelvis CT appointment however patient had already completed it. Discussed with patient again that she should only has HCG testing done on 07/15/2020 prior to her upcoming abd/pelvis CT on 07/18/2020 as teratogenicity may be caused by exposure to radiation, patient verbalized agreement. All the above findings, exam, assessments, and plans were discussed with precepting attending during office hour 07/12/2020 morning July, Other Advised the pat ient to adhere to her upcoming gynecology and psychiatry appointment, the patient verbalized agreement. All the above findings, exam, assessments, and plans were discussed with precepting attending during office hour 07/12/2020 morning PLAN OF TREATMENT Medication Medication Name Sig Start Date Stop Date busPIRone HCl 15 MG 1 tablet Orally Twice a day(total 25mg i n AM, 15mg in PM) Feb, Paxil 40 MG 1 tablet in the morning Orally Once a day for 90 day(s) busPIRone HCl 10 MG 1 tablet Orally in AM(total 25mg in AM a nd 15mg in PM) Feb, Treatment Notes Assessment Notes Clinical Notes Urination frequency Patient self-reporte d urinary frequency as well as the sensation of incomplete bladder emptying. UA and bladder US ordered. HCG ordered to rule out as patient as patient reported urinary frequency, incomplete bladder emptying, and also has upcoming abd/pelvis CT appointment. Patient is aware she needs to contact clinic or seek immediate medical care if she has any fever, chills, urinary urgency//dysuria, suprapubic pain, or flank pain. All the above findings, exam, assessments, and plans were discussed with precepting attending during office hour 07/12/2020 morning Feeling of incomplete bladder emptying P atient self-reported urinary frequency as well as the sensation of incomplete bladder emptying. UA and bladder US ordered. HCG ordered to rule out as patient as patient reported urinary frequency, incomplete bladder emptying, and also has upcoming abd/pelvis CT appointment. Patient is aware she needs to contact clinic or seek immediate medical care if she has any fever, chills, urinary urgency//dysuria, suprapubic pain, or flank pain All the above findings, exam, assessments, and plans were discussed with precepting attending during office hour 07/12/2020 morning Low back pain Back exercises material was printed Like ly associated with referred pain from ovarian cyst vs muscle strain. Patient declined physical therapy. Advised Tylenol and ibuprofen as needed, daily maximum dose of 3000 mg of Tylenol and Ibuprofen discussed were discussed with the patient. Safety plan discussed with patient regarding when to seek immediate medical attention: worsening back pain, increased bowel incontinence, urinary incontinence, inner thigh paresthesia, or extremity weakness; the above was discussed with patient in details and patient verbalized that she will go to the ER if she has the above symptoms. All the above findings, exam, assessments, and plans were discussed with precepting attending during office hour 07/12/2020 morning Patient refused evaluation or treatment Patient refused to be on folic acid, risks of not taking folic acid were discussed with the patient including if she becomes the fetus/baby may have neural tube defects, patient verbalized understanding of the risks. Patient refused physical therapy referral for her low back pain. All the above findings, exam, assessments, and plans were discussed with precepting attending during office hour 07/12/2020 morning Noncompliance HCG previously order ed and told patient to ONLY has HCG testing done two days prior to her abd/pelvis CT appointment however patient had already completed it. Discussed with patient again that she should only has HCG testing done on 07/15/2020 prior to her upcoming abd/pelvis CT on 07/18/2020 as teratogenicity may be caused by exposure to radiation, patient verbalized agreement. All the above findings, exam, assessments, and plans were discussed with precepting attending during office hour 07/12/2020 morning Next Appt Details Exisiting appt 08/09/2020 Reason: Provider Name:Katelyn Juanita Jara, 2020-12-13 0 1:40:00 PM, [address] [facility], , [place], [address], Insurance Providers Payer Name Payer Address Payer Phone Insured Name Patient Relati onship to Insured Coverage Start Date Coverage End Date [facility] CLAIMS [address]PT [address] [facility] [phone] ADRYAN MCBRIDE
--- OUTSIDE RECORDS SUMMARY | 2021-01-22 06:41 | CCD ---
Author Author [facility] Organization [facility] Address Unknown Phone Unavailable Care Team Providers Care Podiatry Doctor Name Role Phone Gracie Ram Unavailable PROBLEMS Type Condition ICD9-CM Code [id number] Code Onset Dates Condition S tatus W/U Status Risk SNOMED Code Notes Problem Adjustment disorder with depressed mood F43.21 Active confirmed 98517181 Problem Miscarried within last 12 months Z87.59 Active confirmed 774190688 Problem Panic disorder [episodic paroxysmal anxiety] F41.0 Active confirmed 836923765 Problem Vaccination refused by patient Z28.21 Active c onfirmed 432762439143 Problem Recommendation refused by patient Z53.20 Active confirmed 176034683 Problem Intermittent palpitations R00.2 Active confirmed 829821580 Problem Contusion of coccyx, sequela S30.0XXS Active confir med 950665878 Problem Generalized anxiety disorder F41.1 Active confirme d 97237723 Problem BMI 33.0-33.9,adult Z68.33 Active confirmed 608387813 Problem Thrombocytopenia D69.6 Active confirmed 415 530900 Problem Patient refused evaluation or treatment Z53.20 Active confirmed 033889058 Problem Other chronic pain G89.29 Active confirmed 8 8153677 Problem Right flank pain R10.9 Active confirmed 162 563126 Problem Anxiety disorder, unspecified F41.9 Active confirm ed 748688702 Problem Bilateral nephrolithiasis N20.0 Active confirmed 47296367 Problem Ovarian cyst, right N83.201 Active confirmed 87326150645034953 Problem Routine general medical examination at a [facility] acility Z00.00 Active confirmed 018442323 Problem Depression F32.9 Active confirmed 45449855 Problem Urination frequency R35.0 Active confirmed 405982509 Problem Noncompliance Z91.19 Active confirmed 992975 9 Problem Feeling of incomplete bladder emptying R39.14 A ctive confirmed 144671994 Problem Low back pain M54.5 Active confirmed 423077 009 ALLERGIES Allergen (clinical drug ingredient) Drug/Non Drug Allergy do cumented on EMR Reaction Allergy Type Onset Date Status penicillian Rash Non Drug Allergy Active ENCOUNTERS from 1987 to 2020-12-13 Encounter Location Date Provider Diagnosis [facility] [place] Resident [address] [facility] [address] [phone] [place] [address] 11 Dec, 2020 Gracie Ram Anxiety disorder, un specified F41.9 IMMUNIZATIONS Vaccine Route Administration Date Status TD PED 0.5mL Tetanus IM Intramuscular August 09, 2020 Administer ed SOCIAL HISTORY Tobacco Use: Social History Observation Description Date Details (start date - stop date) Current Smoker Sex Assigned At : Social History Observation Description Sex Assigned At Unknown Education: Question Answer Notes Level of Education: High School Audit Question Answer Notes Total Score: 0 Interpretation: Alcohol Education Language: Question Answer Notes Languages spoken: Kyrgyz Cheondoism: Question Answer Notes Cheondoism No uatsdin beliefs that would impact health care. Drug and Alcohol Question Answer Notes Total Score: 0 Interpretation: No problems reported Tobacco Use: Question Answer Notes Are you a: current smoker Additional Findings: Tobacco User REASON FOR REFERRAL No Information VITAL SIGNS No information MEDICATIONS Medication SIG (Take, Route, Frequency, Duration) Notes Start Da te End Date Status busPIRone HCl 15 MG 1 tablet Orally Twice a day(total 25mg in AM , 15mg in PM) Feb, Active Paxil 40 MG 1 tablet in the morning Orally Once a day for 90 day(s) Active NuvaRing 0.12-0.015 MG/24HR [address] for 3 weeks, remove, and replace with a new ring after 7 day break Vaginal for 30 day(s) Dec, Active Sprintec 28 0.25-35 MG-MCG 1 tablet Orally Once a day for 90 day(s) Active Tamsulosin HCl 0.4 MG 1 capsule Orally Once a day for 21 day(s) July, Not-Taking busPIRone HCl 10 MG 1 tablet Orally in AM(total 25mg in AM and 1 5mg in PM) Feb, Active Sulfamethoxazole-Trimethoprim 800-160 MG 1 tablet Oral ly Twice a day for 14 day(s) Mar, Not-Taking Folic Acid 400 MCG 1 tablet Orally Once a day for 90 day(s) Mar, Not-Taking PROCEDURES No Information RESULTS No Results REASON FOR VISIT medication MEDICAL (GENERAL) HISTORY Type Description Date Medical History kidney stones Surgical History breast biopsy - left 2009 [...] Notes Treatment Notes Treatm ent Clinical Notes Dec, Anxiety disorder, unspecified (ICD-10 - F41.9) PLAN OF TREATMENT Medication Medication Name Sig Start Date Stop Date NuvaRing 0.12-0.015 MG/24HR [address] for 3 weeks, remove, and replace with a new ring after 7 day break Vaginal for 30 day(s) Dec, Insurance Providers Payer Name Payer Address Payer Phone Insured Name Patient Relati onship to Insured Coverage Start Date Coverage End Date [facility]POR[facility] CLAIMS DEPT [address] [facility] [phone] ADRYAN MCBRIDE
--- OUTSIDE RECORDS SUMMARY | 2021-01-22 06:41 | CCD ---
Author Author [facility] Organization [facility] Address Unknown Phone Unavailable Care Team Providers Care Hairspring Inspector Name Role Phone Gracie Ram Unavailable PROBLEMS Type Condition ICD9-CM Code [id number] Code Onset Dates Condition S tatus W/U Status Risk SNOMED Code Notes Problem Adjustment disorder with depressed mood F43.21 Active confirmed 84480659 Problem Miscarried within last 12 months Z87.59 Active confirmed 064527467 Problem Panic disorder [episodic paroxysmal anxiety] F41.0 Active confirmed 185424512 Problem Vaccination refused by patient Z28.21 Active c onfirmed 587582749352 Problem Recommendation refused by patient Z53.20 Active confirmed 422642914 Problem Intermittent palpitations R00.2 Active confirmed 918454098 Problem Contusion of coccyx, sequela S30.0XXS Active confir med 857702231 Problem Generalized anxiety disorder F41.1 Active confirme d 38720014 Problem BMI 33.0-33.9,adult Z68.33 Active confirmed 499550949 Problem Thrombocytopenia D69.6 Active confirmed 415 369343 Problem Patient refused evaluation or treatment Z53.20 Active confirmed 326059747 Problem Other chronic pain G89.29 Active confirmed 8 3439291 Problem Right flank pain R10.9 Active confirmed 162 563444 Problem Anxiety disorder, unspecified F41.9 Active confirm ed 240376773 Problem Bilateral nephrolithiasis N20.0 Active confirmed 51800700 Problem Ovarian cyst, right N83.201 Active confirmed 57230665800498070 Problem Routine general medical examination at a [facility] acility Z00.00 Active confirmed 394766108 Problem Depression F32.9 Active confirmed 03255940 Problem Urination frequency R35.0 Active confirmed 152692281 Problem Noncompliance Z91.19 Active confirmed 883666 9 Problem Feeling of incomplete bladder emptying R39.14 A ctive confirmed 628923734 Problem Low back pain M54.5 Active confirmed 735329 009 ALLERGIES Allergen (clinical drug ingredient) Drug/Non Drug Allergy do cumented on EMR Reaction Allergy Type Onset Date Status penicillian Rash Non Drug Allergy Active ENCOUNTERS from 1987 to 2020-11-10 Encounter Location Date Provider Diagnosis [facility] [place] [address] [address] [phone] [place] [address] Nov, Gracie Ram IMMUNIZATIONS Vaccine Route Administration Date Status TD [...] Education Language: Question Answer Notes Languages spoken: Hungarian Mosque: Question Answer Notes Mosque No advent beliefs that would impact health care. 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 Hospitalization History Surgery Goals Section No Information Health Concerns No Information MEDICAL EQUIPMENT No Information MENTAL STATUS No Information FUNCTIONAL STATUS No Information ASSESSMENTS No Information PLAN OF TREATMENT Medication Medication Name Sig Start Date Stop Date busPIRone HCl 15 MG 1 tablet Orally Twice a day(total 25mg i n AM, 15mg in PM) Feb, Paxil 40 MG 1 tablet in the morning Orally Once a day for 90 day(s) busPIRone HCl 10 MG 1 tablet Orally in AM(total 25mg in AM a nd 15mg in PM) Feb, Next Appt Details Provider Name:Katelyn Jara, 2020-12-13 0 1:40:00 PM, [address] [facility], , [place], [address], Insurance Providers Payer Name Payer Address Payer Phone Insured Name Patient Relati onship to Insured Coverage Start Date Coverage End Date [facility] DEPT [address] [facility] [phone] ADRYAN MCBRIDE
--- OUTSIDE RECORDS SUMMARY | 2021-01-22 06:41 | CCD ---
Author Author [facility] Organization [facility] Address Unknown Phone Unavailable Care Team Providers Care Senior Inspector Name Role Phone Katelyn Jara Unavailable PROBLEMS Type Condition ICD9-CM Code [id number] Code Onset Dates Condition S tatus W/U Status Risk SNOMED Code Notes Problem Adjustment disorder with depressed mood F43.21 Active confirmed 80942477 Problem Miscarried within last 12 months Z87.59 Active confirmed 919150066 Problem Panic disorder [episodic paroxysmal anxiety] F41.0 Active confirmed 322682897 Problem Vaccination refused by patient Z28.21 Active c onfirmed 354135790820 Problem Recommendation refused by patient Z53.20 Active confirmed 470906474 Problem Intermittent palpitations R00.2 Active confirmed 169983484 Problem Contusion of coccyx, sequela S30.0XXS Active confir med 858703228 Problem Generalized anxiety disorder F41.1 Active confirme d 22691278 Problem BMI 33.0-33.9,adult Z68.33 Active confirmed 697178033 Problem Thrombocytopenia D69.6 Active confirmed 415 156075 Problem Patient refused evaluation or treatment Z53.20 Active confirmed 933993439 Problem Other chronic pain G89.29 Active confirmed 8 3789925 Problem Right flank pain R10.9 Active confirmed 162 036979 Problem Anxiety disorder, unspecified F41.9 Active confirm ed 276327856 Problem Bilateral nephrolithiasis N20.0 Active confirmed 23904437 Problem Ovarian cyst, right N83.201 Active confirmed 90381519478286249 Problem Routine general medical examination at [facility] acility Z00.00 Active confirmed 294947591 Problem Depression F32.9 Active confirmed 25489387 Problem Urination frequency R35.0 Active confirmed 353460717 Problem Noncompliance Z91.19 Active confirmed 902767 9 Problem Feeling of incomplete bladder emptying R39.14 A ctive confirmed 932121557 Problem Low back pain M54.5 Active confirmed 060343 009 ALLERGIES Allergen (clinical drug ingredient) Drug/Non Drug Allergy do cumented on EMR Reaction Allergy Type Onset Date Status penicillin V Penicillin Rash Drug Allergy Active ENCOUNTERS from 1987 to 2020-12-21 Encounter Location Date Provider Diagnosis [facility] [phone] [place] [address] Dec, [facility] Jara Contraception manage ment Z30.9 ; Gynecologic exam normal Z01.419 and Screening for malignant neoplasm of cervix Z12.4 IMMUNIZATIONS Vaccine Route Administration Date Status TD [...] Education Language: Question Answer Notes Languages spoken: Vietnamese Samaritan: Question Answer Notes Samaritan No scientologist beliefs that would impact health care. Drug and Alcohol Question Answer Notes Total Score: 0 Interpretation: No problems reported Tobacco Use: Question Answer Notes Are you a: current smoker Additional Findings: Tobacco User REASON FOR REFERRAL No Information VITAL SIGNS Weight 198.6 lbs Dec, Height 63 in Dec, BMI 35.18 kg/m2 Dec, Blood pressure systolic 108 mm Hg Dec, Blood pressure diastolic 68 mm Hg Dec, MEDICATIONS Medication SIG (Take, Route, Frequency, Duration) [...] day(s) Mar, Not-Taking PROCEDURES No Information RESULTS Component Value Reference Range PAP REQUEST FOR SERVICE Reviewed date:12/21/2020 05:00:26 Interpretation: Performing Lab:[facility], [facility] [id number] , ,[place] [id number] REASON FOR VISIT ANNUAL MEDICAL (GENERAL) HISTORY Type Description Date Medical [...] Treatment Notes Treatm ent Clinical Notes Dec, Contraception management (ICD-10 - Z30.9) Dec, Gynecologic exam normal (ICD-10 - Z01.419) Dec, Screening for malignant neoplasm of cervix (ICD- 10 - Z12.4) PLAN OF TREATMENT Medication Medication Name Sig Start Date Stop Date NuvaRing 0.12-0.015 MG/24HR [address] for 3 weeks, remove, and replace with a new ring after 7 day break Vaginal for 30 day(s) Dec, Treatment Notes Test Name Order Date PAP REQUEST FOR SERVICE 2020-12-13 Next Appt Details prn,1 Year Reason: Insurance Providers Payer Name Payer Address Payer Phone Insured Name Patient Relati onship to Insured Coverage Start Date Coverage End Date [employer] DEPT [address] [place] [phone] ADRYAN MCBRIDE
--- OUTSIDE RECORDS SUMMARY | 2021-01-22 06:42 | CCD ---
Author Author [facility] Organization [facility] Address Unknown Phone Unavailable Care Team Providers Care Brick Tender Name Role Phone Prisca SANON EDWARD RPA Unavailable Unavailable SANON, Prisca EDWARD RPA Unavailable Unavailable SANON, G EDWARD RPA Unavailable Unavailable SANON, G EDWARD RPA Unavailable Unavailable SANON, G EDWARD RPA Unavailable Unavailable SANON, G EDWARD RPA Unavailable Unavailable SANON, G EDWARD RPA Unavailable Unavailable SANON, G EDWARD RPA Unavailable Unavailable SANON, G EDWARD RPA Unavailable Unavailable SANON, G EDWARD RPA Unavailable Unavailable SANON, G EDWARD RPA Unavailable Unavailable SANON, G EDWARD RPA Unavailable Unavailable SANON, G EDWARD RPA Unavailable Unavailable SANON, G EDWARD RPA Unavailable Unavailable SANON, G EDWARD RPA Unavailable Unavailable SANON, G EDWARD RPA Unavailable Unavailable SANON, G EDWARD RPA Unavailable Unavailable SANON, G EDWARD RPA Unavailable Unavailable SANON, G EDWARD RPA Unavailable Unavailable SANON, G EDWARD RPA Unavailable Unavailable SANON, G EDWARD RPA Unavailable Unavailable SANON, G EDWARD RPA Unavailable Unavailable SANON, G EDWARD RPA Unavailable Unavailable SANON, G EDWARD RPA Unavailable Unavailable SANON, G EDWARD RPA Unavailable Unavailable SANON, G EDWARD RPA Unavailable Unavailable SANON, G EDWARD RPA Unavailable Unavailable SANON, G EDWARD RPA Unavailable Unavailable SANON, G EDWARD RPA Unavailable Unavailable SANON, G EDWARD RPA Unavailable Unavailable SANON, G EDWARD RPA Unavailable Unavailable SANON, G EDWARD RPA Unavailable Unavailable SANON, G EDWARD RPA Unavailable Unavailable SANON, G EDWARD RPA Unavailable Unavailable SANON, G EDWARD RPA Unavailable Unavailable SANON, G EDWARD RPA Unavailable Unavailable SANON, G EDWARD RPA Unavailable Unavailable Re-disclosure Warning The records that you are about to access may contain information from federally-assisted alcohol or drug abuse programs. If such information is present, then the following federally mandated warning applies: This information has been disclosed to you from records protected by federal confidentiality rules (42 CFR part 2). The federal rules prohibit you from making any further disclosure of this information unless further disclosure is expressly permitted by the written consent of the person to whom it pertains or as otherwise permitted by 42 CFR part 2. A general authorization for the release of medical or other information is NOT sufficient for this purpose. The Federal rules restrict any use of the information to criminally investigate or prosecute any alcohol or drug abuse patient.The records that you are about to access may contain highly sensitive health information, the redisclosure of which is protected by Article 27-F of the [facility] Public Health law. If you continue you may have access to information: Regarding HIV / AIDS; Provided by facilities licensed or operated by the [facility] Office of Mental Health; or Provided by the [facility] Office for People With Developmental Disabilities. If such information is present, then the following [facility] mandated warning applies: This information has been disclosed to you from confidential records which are protected by state law. State law prohibits you from making any further disclosure of this information without the specific written consent of the person to whom it pertains, or as otherwise permitted by law. Any unauthorized further disclosure in violation of state law may result in a fine or mcc sentence or both. A general authorization for the release of medical or other information is NOT sufficient authorization for further disc losure. Family History Family Member Name Family Member Gender Family Member Status Date o f Status Description Data Source(s) Unknown Unknown Problem [facility] ([facility]) Unknown Unknown Problem [facility] ([facility] paternal uncle Encounters Encounter Providers Location Date Indications Data Source(s ) Outpatient 01/14/2021 08:10:33 AM EST - 021 08:38:10 AM EST [facility] ([facility]) Outpatient [address] [facility] [place] [address] 12/13/2020 12:00:00 AM EDT [facility] Unknown [address] [facility] [place] [address] 12/12/2020 12:00:00 AM EDT [facility] [place] [address] [facility] [place] [address] 11/05/2020 12:00:00 AM EDT [facility]CW[facility] Unknown [address] [facility] [place] [address] 11/02/2020 12:00:00 AM EDT [facility]CW1 [facility]) Outpatient Attender: GAUTAM SANON RPA 10/23 08:51:40 AM EDT - 10/23/2020 09:50:48 AM EDT [facility] ([facility] ) [place] [address] [facility] [address] 09/06/2020 12:00:00 AM EDT [facility]CW1 [facility] Unknown [address] [facility] [place] [address] 09/01/2020 12:00:00 AM EDT [facility]CW1 [facility] Outpatient [address] [facility] [place] [address] 08/09/2020 12:00:00 AM EDT eCW1 ([facility]) Unknown [address] [facility] [place] [address] 08/05/2020 12:00:00 AM EDT eCW1 ([facility]) Unknown [address] [facility] [place] [address] 08/04/2020 12:00:00 AM EDT eCW1 ([facility]) Unknown [address] [facility] [place] [address] 07/27/2020 12:00:00 AM EDT eCW1 ([facility]) Unknown [address] [facility] [place] [address] 07/21/2020 12:00:00 AM EDT eCW1 ([facility]) Unknown [address] [facility] [place] [address] 07/20/2020 12:00:00 AM EDT eCW1 ([facility]) Unknown [address] [facility] [place] [address] 07/19/2020 12:00:00 AM EDT eCW1 ([facility]) Unknown [address] [facility] [place] [address] 07/18/2020 12:00:00 AM EDT eCW1 ([facility]) Unknown [address] [facility] [place] [address] 07/15/2020 12:00:00 AM EDT eCW1 ([facility]) Outpatient [address] [facility] [place] [address] 07/12/2020 12:00:00 AM EDT eCW1 ([facility]) Unknown [address] [facility] [place] [address] 07/12/2020 12:00:00 AM EDT eCW1 ([facility]) Unknown [address] [facility] [place] [address] 07/08/2020 12:00:00 AM EDT eCW1 ([facility]) Unknown [address] [facility] [place] [address] 07/07/2020 12:00:00 AM EDT eCW1 ([facility]) Unknown [address] [facility] [place] [address] 07/02/2020 12:00:00 AM EDT eCW1 ([facility]) Unknown [address] [facility] [place] [address] 06/29/2020 12:00:00 AM EDT eCW1 ([facility]) Unknown [address] [facility] [place] [address] 06/25/2020 12:00:00 AM EDT eCW1 ([facility]) Outpatient [address] [facility] [place] [address] 06/24/2020 12:00:00 AM EDT eCW1 ([facility]) Unknown [address] [facility] [place] [address] 06/06/2020 12:00:00 AM EDT eCW1 ([facility]) Unknown [address] [facility] [place] [address] 05/16/2020 12:00:00 AM EDT eCW1 ([facility]) Unknown [address] [facility] [place] [address] 05/03/2020 12:00:00 AM EST eCW1 ([facility]) Unknown [address] [facility] [place] [address] 04/21/2020 12:00:00 AM EST eCW1 ([facility]) Unknown [address] [facility] [place] [address] 03/28/2020 12:00:00 AM EST eCW1 ([facility]) Unknown [address] [facility] [place] [address] 03/27/2020 12:00:00 AM EST eCW1 ([facility]) Unknown [address] [facility] [place] [address] 03/23/2020 12:00:00 AM EST eCW1 ([facility]) Outpatient [address] [facility] [place] [address] 03/22/2020 12:00:00 AM EST eCW1 ([facility]) Unknown [address] [facility] [place] [address] 03/22/2020 12:00:00 AM EST eCW1 ([facility]) Outpatient [address] [facility] [place] [address] 03/21/2020 12:00:00 AM EST eCW1 ([facility]) Unknown [address] [facility] [place] [address] 03/21/2020 12:00:00 AM EST eCW1 ([facility]) Unknown [address] [facility] [place] [address] 03/10/2020 12:00:00 AM EST eCW1 ([facility]) Unknown [address] [facility] [place] [address] 03/07/2020 12:00:00 AM EST eCW1 ([facility]) Unknown [address] [facility] [place] [address] 02/25/2020 12:00:00 AM EST eCW1 ([facility]) Outpatient [address] [facility] [place] [address] 02/22/2020 12:00:00 AM EST eCW1 ([facility]) Unknown [address] [facility] [place] [address] 02/22/2020 12:00:00 AM EST eCW1 ([facility]) Unknown [address] [facility] [place] [address] 02/22/2020 12:00:00 AM EST eCW1 ([facility]) Unknown [address] [facility] [place] [address] 02/22/2020 12:00:00 AM EST eCW1 ([facility]) Unknown [address] [facility] [place] [address] 02/17/2020 12:00:00 AM EST eCW1 ([facility]) Unknown [address] [facility] [place] [address] 02/15/2020 12:00:00 AM EST eCW1 ([facility]) Unknown [address] [facility] [place] [address] 02/11/2020 12:00:00 AM EST eCW1 ([facility]) Unknown [address] [facility], [place] [address] 02/11/2020 12:00:00 AM EST eCW1 ([facility]) Unknown [address] [facility] [place] [address] 02/10/2020 12:00:00 AM EST eCW1 ([facility]) TeleMedicine Phone E/M by Phys 11-20 Min [address] [place] [address] 01/22/2020 12:00:00 AM EST eCW1 ([facility]) Unknown [address] [facility] [place] [address] 01/22/2020 12:00:00 AM EST eCW1 ([facility]) Unknown [address] [facility], [place] [address] 01/20/2020 12:00:00 AM EST eCW1 ([facility]) Unknown [address] [facility] [place] [address] 01/20/2020 12:00:00 AM EST eCW1 ([facility]) Unknown [address] [facility] [place] [address] 01/20/2020 12:00:00 AM EST eCW1 ([facility]) Unknown [address] [facility] [place] [address] 01/20/2020 12:00:00 AM EST eCW1 ([facility]) Unknown [address] [facility] [place] [address] 01/19/2020 12:00:00 AM EST eCW1 ([facility]) Unknown [address] [facility] [place] [address] 01/04/2020 12:00:00 AM EST eCW1 ([facility]) Outpatient [address] [facility] [place] [address] 01/01/2020 12:00:00 AM EDT eCW1 ([facility]) Unknown [address] [facility] [place] [address] 01/01/2020 12:00:00 AM EDT [facility]CW1 [facility] Unknown [address] [facility] [place] [address] 12/28/2019 12:00:00 AM EDT eCW1 ([facility] Outpatient [address] [facility] [place] [address] 12/18/2019 12:00:00 AM EDT eCW1 ([facility]) Unknown [address] [facility] [place] [address] 12/12/2019 12:00:00 AM EDT eCW1 ([facility] Unknown [address] [facility] [place] [address] 11/24/2019 12:00:00 AM EDT [facility] Unknown [address] [facility] [place] [address] 11/24/2019 12:00:00 AM EDT eCW1 [facility]) Unknown [address] [facility] [place] [address] 11/24/2019 12:00:00 AM EDT eCW1 ([facility]) Unknown [address] [facility] [place] [address] 11/24/2019 12:00:00 AM EDT eCW1 ([facility]) Unknown [address] [facility] [place] [address] 11/24/2019 12:00:00 AM EDT eCW1 ([facility]) Immunizations Vaccine Date Status Description Data Source(s) COVID-19 VACCINE Moderna 01/16/2021 12:00:00 AM EST completed [facility] Vaccine Series Complete: NOThis Data was Submitted to [facility] Via [employer]. Note that this vaccine name has changed. See also Td (adult). It is not adsorbed. 08/09/2020 05:48:00 PM EDT completed eCW1 ([facility]) Note that this vaccine name has changed. See also Td (adult). It is not adsorbed. 08/09/2020 05:48:00 PM EDT completed eCW1 ([facility]) Note that this vaccine name has changed. See also Td (adult). It is not adsorbed. 08/09/2020 05:48:00 PM EDT completed eCW1 ([facility]) Note that this vaccine name has changed. See also Td (adult). It is not adsorbed. 08/09/2020 05:48:00 PM EDT completed eCW1 ([facility]) Note that this vaccine name has changed. See also Td (adult). It is not adsorbed. 08/09/2020 05:48:00 PM EDT completed eCW1 ([facility]) Note that this vaccine name has changed. See also Td (adult). It is not adsorbed. 08/09/2020 05:48:00 PM EDT completed eCW1 ([facility]) Note that this vaccine name has changed. See also Td (adult). It is not adsorbed. 08/09/2020 05:48:00 PM EDT completed eCW1 ([facility]) Note that this vaccine name has changed. See also Td (adult). It is not adsorbed. 08/09/2020 05:48:00 PM EDT completed eCW1 ([facility]) Medications Medication Brand Name Start Date Product Form Dose Route Admi nistrative Instructions Pharmacy Instructions Status Indications Reaction Description Data Source(s) 37.5 mg 01/11/2021 12:00:00 AM EST capsule,extended releas e 24hr 30 TAKE ONE CAPSULE BY MOUTH EVERY DAY FOR 1 WEEK THEN 2 ONCE DAILY TAKE ONE CAPSULE BY MOUTH EVERY DAY FOR 1 WEEK THEN 2 ONCE DAILY SOLD: 01/12/2021 [facility] Escitalopram 10 MG Oral Tablet ESCITALOPRAM OXALATE 12/21/2020 1 2:00:00 AM EDT tablet 14 TAKE ONE TABLET BY MOUTH EVERY D AY TAKE ONE TABLET BY MOUTH EVERY DAY SOLD: 12/21/2020 [facility] Paroxetine Hydrochloride 10 MG Oral Tablet PAROXETINE HCL 12/21/2020 12:00:00 AM EDT tablet 12 TAKE TWO TABLETS BY MOUTH EVERY DAY FOR 4 DAYS THEN 1 ONCE DAILY FOR 4 DAYS TAKE TWO TABLETS BY MOUTH EVERY DAY FOR 4 DAYS THEN 1 ONCE DAILY FOR 4 DAYS SOLD: 12/21/2020 [facility] 0.12-0.015 mg/24 hr 12/14/2020 12:00:00 AM EDT ring 3 INSERT RING INTRAVAGINALLY. LEAVE IN PLACE FOR THREE WEEKS, REMOVE AND REPLACE WITH A NEW RING AFTER 7 DAY BREAK INSERT RING INTRAVAGINALLY. LEAVE IN STEFANIA CE FOR THREE WEEKS, REMOVE AND REPLACE WITH A NEW RING AFTER 7 DAY BREAK SOLD: 12/15/2020 [facility] 21 DAY Ethinyl Estradiol 0.411106 MG/HR / Etonogestrel 0.005 MG/HR Vaginal Ring [NuvaRing] NuvaRing 0.12-0.015 MG/24HR NuvaRing 0.12-0.015 MG/24HR 12/13/2020 12:00:00 AM EDT active NuvaRing 0.12-0.015 MG/24HR eCW1 ([facility]) Paroxetine Hydrochloride 40 MG Oral Tablet PAROXETINE HCL 12/13/2020 12:00:00 AM EDT tablet 90 TAKE ONE TABLET BY MOUTH HUGH MORNING TAKE ONE TABLET BY MOUTH EVERY MORNING SOLD: 12/15/2020 [facility] 21 DAY Ethinyl Estradiol 0.554520 MG/HR / Etonogestrel 0.005 MG/HR Vaginal Ring [NuvaRing] NuvaRing 0.12-0.015 MG/24HR NuvaRing 0.12-0.015 MG/24HR 12/13/2020 12:00:00 AM EDT active NuvaRing 0.12-0.015 MG/24HR eCW1 ([facility]) Paroxetine Hydrochloride 40 MG Oral Tablet PAROXETINE HCL 09/07/2020 12:00:00 AM EDT tablet 90 TAKE ONE TABLET BY MOUTH HUGH RY MORNING TAKE ONE TABLET BY MOUTH EVERY MORNING SOLD: 09/08/2020 [facility] Paroxetine Hydrochloride 40 MG Oral Tablet PAROXETINE HCL 08/06/2020 12:00:00 AM EDT tablet 30 TAKE ONE TABLET BY MOUTH HUGH RY MORNING TAKE ONE TABLET BY MOUTH EVERY MORNING SOLD: 08/06/2020 [facility] 0.4 mg 07/20/2020 12:00:00 AM EDT capsule 21 TAKE ONE CAPSULE BY MOUTH EVERY DAY TAKE ONE CAPSULE BY MOUTH EVERY DAY SOLD: 07/20/2020 [facility] Tamsulosin hydrochloride 0.4 MG Oral Capsule Tamsulosi n HCl 0.4 MG Tamsulosin HCl 0.4 MG 07/19/2020 12:00:00 AM EDT 1.0 {capsule} active Tamsulosin HCl 0.4 MG eCW1 ([facility]) Tamsulosin hydrochloride 0.4 MG Oral Capsule Tamsulosi n HCl 0.4 MG Tamsulosin HCl 0.4 MG 07/19/2020 12:00:00 AM EDT 1.0 {capsule} active Tamsulosin HCl 0.4 MG eCW1 ([facility]) Tamsulosin hydrochloride 0.4 MG Oral Capsule Tamsulosi n HCl 0.4 MG Tamsulosin HCl 0.4 MG 07/19/2020 12:00:00 AM EDT 1.0 {capsule} active Tamsulosin HCl 0.4 MG eCW1 ([facility]) Tamsulosin hydrochloride 0.4 MG Oral Capsule Tamsulosi n HCl 0.4 MG Tamsulosin HCl 0.4 MG 07/19/2020 12:00:00 AM EDT 1.0 {capsule} suspended Tamsulosin HCl 0.4 MG eCW1 ([facility]) Tamsulosin hydrochloride 0.4 MG Oral Capsule Tamsulosi n HCl 0.4 MG Tamsulosin HCl 0.4 MG 07/19/2020 12:00:00 AM EDT 1.0 {capsule} active Tamsulosin HCl 0.4 MG eCW1 ([facility]) Tamsulosin hydrochloride 0.4 MG Oral Capsule Tamsulosi n HCl 0.4 MG Tamsulosin HCl 0.4 MG 07/19/2020 12:00:00 AM EDT 1.0 {capsule} active Tamsulosin HCl 0.4 MG eCW1 ([facility]) Tamsulosin hydrochloride 0.4 MG Oral Capsule Tamsulosi n HCl 0.4 MG Tamsulosin HCl 0.4 MG 07/19/2020 12:00:00 AM EDT 1.0 {capsule} active Tamsulosin HCl 0.4 MG eCW1 ([facility]) Tamsulosin hydrochloride 0.4 MG Oral Capsule Tamsulosi n HCl 0.4 MG Tamsulosin HCl 0.4 MG 07/19/2020 12:00:00 AM EDT 1.0 {capsule} active Tamsulosin HCl 0.4 MG eCW1 ([facility]) Tamsulosin hydrochloride 0.4 MG Oral Capsule Tamsulosi n HCl 0.4 MG Tamsulosin HCl 0.4 MG 07/19/2020 12:00:00 AM EDT 1.0 {capsule} suspended Tamsulosin HCl 0.4 MG eCW1 ([facility]) Tamsulosin hydrochloride 0.4 MG Oral Capsule Tamsulosi n HCl 0.4 MG Tamsulosin HCl 0.4 MG 07/19/2020 12:00:00 AM EDT 1.0 {capsule} active Tamsulosin HCl 0.4 MG eCW1 ([facility]) Tamsulosin hydrochloride 0.4 MG Oral Capsule Tamsulosi n HCl 0.4 MG Tamsulosin HCl 0.4 MG 07/19/2020 12:00:00 AM EDT 1.0 {capsule} active Tamsulosin HCl 0.4 MG eCW1 ([facility]) Tamsulosin hydrochloride 0.4 MG Oral Capsule Tamsulosi n HCl 0.4 MG Tamsulosin HCl 0.4 MG 07/19/2020 12:00:00 AM EDT 1.0 {capsule} active Tamsulosin HCl 0.4 MG eCW1 ([facility]) Tamsulosin hydrochloride 0.4 MG Oral Capsule Tamsulosi n HCl 0.4 MG Tamsulosin HCl 0.4 MG 07/19/2020 12:00:00 AM EDT 1.0 {capsule} active Tamsulosin HCl 0.4 MG eCW1 ([facility]) Tamsulosin hydrochloride 0.4 MG Oral Capsule Tamsulosi n HCl 0.4 MG Tamsulosin HCl 0.4 MG 07/19/2020 12:00:00 AM EDT 1.0 {capsule} active Tamsulosin HCl 0.4 MG eCW1 ([facility]) Tamsulosin hydrochloride 0.4 MG Oral Capsule Tamsulosi n HCl 0.4 MG Tamsulosin HCl 0.4 MG 07/19/2020 12:00:00 AM EDT 1.0 {capsule} active Tamsulosin HCl 0.4 MG eCW1 ([facility]) Tamsulosin hydrochloride 0.4 MG Oral Capsule Tamsulosi n HCl 0.4 MG Tamsulosin HCl 0.4 MG 07/19/2020 12:00:00 AM EDT 1.0 {capsule} active Tamsulosin HCl 0.4 MG eCW1 ([facility]) buspirone hydrochloride 10 MG Oral Tablet BUSPIRONE HCL 07/15/2020 12:00:00 AM EDT tablet 30 TAKE ONE TABLET BY MOUTH HUGH RY MORNING TAKE ONE TABLET BY MOUTH EVERY MORNING SOLD: 07/19/2020 [facility] buspirone hydrochloride 15 MG Oral Tablet BUSPIRONE HCL 06/30/2020 12:00:00 AM EDT tablet 60 TAKE ONE TABLET BY MOUTH TWI CE A DAY TAKE ONE TABLET BY MOUTH TWICE A DAY SOLD: 09/22/2020 [facility] 0.25-35 mg-mcg 05/19/2020 12:00:00 AM EDT tablet 84 TAKE ONE TABLET BY MOUTH EVERY DAY TAKE ONE TABLET BY MOUTH EVERY DAY SOLD: 11/10/2020 [facility] 0.25-35 mg-mcg 05/19/2020 12:00:00 AM EDT tablet 84 TAKE ONE TABLET BY MOUTH EVERY DAY TAKE ONE TABLET BY MOUTH EVERY DAY SOLD: 08/20/2020 [facility] 0.25-35 mg-mcg 05/19/2020 12:00:00 AM EDT tablet 84 TAKE ONE TABLET BY MOUTH EVERY DAY TAKE ONE TABLET BY MOUTH EVERY DAY SOLD: 05/20/2020 [facility] buspirone hydrochloride 10 MG Oral Tablet BUSPIRONE HCL 04/22/2020 12:00:00 AM EST tablet 30 TAKE ONE TABLET BY MOUTH HUGH RY MORNING (AND 15 MG IN PM) TAKE ONE TABLET BY MOUTH EVERY MORNING (AND 15 MG IN PM) SOLD: 04/27/2020 [facility] buspirone hydrochloride 10 MG Oral Tablet BUSPIRONE HCL 04/22/2020 12:00:00 AM EST tablet 30 TAKE ONE TABLET BY MOUTH HUGH RY MORNING (AND 15 MG IN PM) TAKE ONE TABLET BY MOUTH EVERY MORNING (AND 15 MG IN PM) SOLD: 05/28/2020 [facility] buspirone hydrochloride 10 MG Oral Tablet BUSPIRONE HCL 04/22/2020 12:00:00 AM EST tablet 30 TAKE ONE TABLET BY MOUTH HUGH RY MORNING (AND 15 MG IN PM) TAKE ONE TABLET BY MOUTH EVERY MORNING (AND 15 MG IN PM) SOLD: 06/23/2020 [facility] buspirone hydrochloride 15 MG Oral Tablet BUSPIRONE HCL 04/13/2020 12:00:00 AM EST tablet 60 TAKE ONE TABLET BY MOUTH TWICE A DAY TOTAL 25MG IN EVERY MORNING AND 15MG IN THE IN THE EVENING TAKE ONE TABLET BY MOUTH TWICE A DAY TOT AL 25MG IN EVERY MORNING AND 15MG IN THE IN THE EVENING SOLD: 04/21/2020 [facility] Paroxetine Hydrochloride 40 MG Oral Tablet PAROXETINE HCL 03/23/2020 12:00:00 AM EST tablet 30 TAKE ONE TABLET BY MOUTH HUGH RY MORNING TAKE ONE TABLET BY MOUTH EVERY MORNING SOLD: 03/31/2020 [facility] Paroxetine Hydrochloride 40 MG Oral Tablet PAROXETINE HCL 03/23/2020 12:00:00 AM EST tablet 30 TAKE ONE TABLET BY MOUTH HUGH RY MORNING TAKE ONE TABLET BY MOUTH EVERY MORNING SOLD: 05/07/2020 [facility] Sulfamethoxazole 800 MG / Trimethoprim 160 MG Oral Tab let 800-160 mg SULFAMETHOXAZOLE/TRIMETHOPRIM 03/23/2020 12:00:00 AM EST tablet 28 TAKE ONE TABLET BY MOUTH TWICE A DAY TAKE ONE TABLET BY MOUTH TWICE A DAY SOLD: 03/23/2020 [facility] Paroxetine Hydrochloride 40 MG Oral Tablet PAROXETINE HCL 03/23/2020 12:00:00 AM EST tablet 30 TAKE ONE TABLET BY MOUTH HUGH RY MORNING TAKE ONE TABLET BY MOUTH EVERY MORNING SOLD: 06/04/2020 [facility] Folic Acid 0.4 MG Oral Tablet Folic Acid 400 MCG Folic Acid 400 MCG 03/22/2020 12:00:00 AM EST 1.0 {tablet} suspended Folic Acid 400 MCG eCW1 ([facility]) Folic Acid 0.4 MG Oral Tablet Folic Acid 400 MCG Folic Acid 400 MCG 03/22/2020 12:00:00 AM EST 1.0 {tablet} suspended Folic Acid 400 MCG eCW1 ([facility]) Folic Acid 0.4 MG Oral Tablet Folic Acid 400 MCG Folic Acid 400 MCG 03/22/2020 12:00:00 AM EST 1.0 {tablet} suspended Folic Acid 400 MCG eCW1 ([facility]) Sulfamethoxazole 800 MG / Trimethoprim 1 60 MG Oral Tablet Sulfamethoxazole- Trimethoprim 800-160 MG Sulfamethoxazole-Trimethoprim 800-160 MG 03/22/2020 12:00:00 AM EST 1.0 {tablet} active Sulfamethoxazole-Trimethoprim 800-160 MG eCW1 ([facility]) Sulfamethoxazole 800 MG / Trimethoprim 1 60 MG Oral Tablet Sulfamethoxazole- Trimethoprim 800-160 MG Sulfamethoxazole-Trimethoprim 800-160 MG 03/22/2020 12:00:00 AM EST 1.0 {tablet} active Sulfamethoxazole-Trimethoprim 800-160 MG eCW1 ([facility] [facility] Folic Acid 0.4 MG Oral Tablet Folic Acid 400 MCG Folic Acid 400 MCG 03/22/2020 12:00:00 AM EST 1.0 {tablet} suspended Folic Acid 400 MCG eCW1 ([facility]) Sulfamethoxazole 800 MG / Trimethoprim 1 60 MG Oral Tablet Sulfamethoxazole- Trimethoprim 800-160 MG Sulfamethoxazole-Trimethoprim 800-160 MG 03/22/2020 12:00:00 AM EST 1.0 {tablet} active Sulfamethoxazole-Trimethoprim 800-160 MG eCW1 ([facility]) Folic Acid 0.4 MG Oral Tablet Folic Acid 400 MCG Folic Acid 400 MCG 03/22/2020 12:00:00 AM EST 1.0 {tablet} active Fo lic Acid 400 MCG eCW1 ([facility]) Folic Acid 0.4 MG Oral Tablet Folic Acid 400 MCG Folic Acid 400 MCG 03/22/2020 12:00:00 AM EST 1.0 {tablet} active Fo lic Acid 400 MCG eCW1 ([facility]) Sulfamethoxazole 800 MG / Trimethoprim 1 60 MG Oral Tablet Sulfamethoxazole- Trimethoprim 800-160 MG Sulfamethoxazole-Trimethoprim 800-160 MG 03/22/2020 12:00:00 AM EST 1.0 {tablet} active Sulfamethoxazole-Trimethoprim 800-160 MG eCW1 ([facility]) Sulfamethoxazole 800 MG / Trimethoprim 1 60 MG Oral Tablet Sulfamethoxazole- Trimethoprim 800-160 MG Sulfamethoxazole-Trimethoprim 800-160 MG 03/22/2020 12:00:00 AM EST 1.0 {tablet} active Sulfamethoxazole-Trimethoprim 800-160 MG eCW1 ([facility]) Sulfamethoxazole 800 MG / Trimethoprim 1 60 MG Oral Tablet Sulfamethoxazole- Trimethoprim 800-160 MG Sulfamethoxazole-Trimethoprim 800-160 MG 03/22/2020 12:00:00 AM EST 1.0 {tablet} suspended Sulfamethoxazole-Trimethoprim 800-160 MG eCW1 ([facility]) Sulfamethoxazole 800 MG / Trimethoprim 1 60 MG Oral Tablet Sulfamethoxazole- Trimethoprim 800-160 MG Sulfamethoxazole-Trimethoprim 800-160 MG 03/22/2020 12:00:00 AM EST 1.0 {tablet} suspended Sulfamethoxazole-Trimethoprim 800-160 MG eCW1 ([facility]) Folic Acid 0.4 MG Oral Tablet Folic Acid 400 MCG Folic Acid 400 MCG 03/22/2020 12:00:00 AM EST 1.0 {tablet} active Fo lic Acid 400 MCG eCW1 ([facility]) Sulfamethoxazole 800 MG / Trimethoprim 1 60 MG Oral Tablet Sulfamethoxazole- Trimethoprim 800-160 MG Sulfamethoxazole-Trimethoprim 800-160 MG 03/22/2020 12:00:00 AM EST 1.0 {tablet} active Sulfamethoxazole-Trimethoprim 800-160 MG eCW1 ([facility]) Sulfamethoxazole 800 MG / Trimethoprim 1 60 MG Oral Tablet Sulfamethoxazole- Trimethoprim 800-160 MG Sulfamethoxazole-Trimethoprim 800-160 MG 03/22/2020 12:00:00 AM EST 1.0 {tablet} suspended Sulfamethoxazole-Trimethoprim 800-160 MG eCW1 ([facility]) Sulfamethoxazole 800 MG / Trimethoprim 1 60 MG Oral Tablet Sulfamethoxazole- Trimethoprim 800-160 MG Sulfamethoxazole-Trimethoprim 800-160 MG 03/22/2020 12:00:00 AM EST 1.0 {tablet} suspended Sulfamethoxazole-Trimethoprim 800-160 MG eCW1 ([facility]) Folic Acid 0.4 MG Oral Tablet Folic Acid 400 MCG Folic Acid 400 MCG 03/22/2020 12:00:00 AM EST 1.0 {tablet} suspended Folic Acid 400 MCG eCW1 ([facility]) Folic Acid 0.4 MG Oral Tablet Folic Acid 400 MCG Folic Acid 400 MCG 03/22/2020 12:00:00 AM EST 1.0 {tablet} active Fo lic Acid 400 MCG eCW1 ([facility]) Folic Acid 0.4 MG Oral Tablet Folic Acid 400 MCG Folic Acid 400 MCG 03/22/2020 12:00:00 AM EST 1.0 {tablet} suspended Folic Acid 400 MCG eCW1 ([facility]) Sulfamethoxazole 800 MG / Trimethoprim 1 60 MG Oral Tablet Sulfamethoxazole- Trimethoprim 800-160 MG Sulfamethoxazole-Trimethoprim 800-160 MG 03/22/2020 12:00:00 AM EST 1.0 {tablet} active Sulfamethoxazole-Trimethoprim 800-160 MG eCW1 ([facility]) Folic Acid 0.4 MG Oral Tablet Folic Acid 400 MCG Folic Acid 400 MCG 03/22/2020 12:00:00 AM EST 1.0 {tablet} active Fo lic Acid 400 MCG eCW1 ([facility]) Sulfamethoxazole 800 MG / Trimethoprim 1 60 MG Oral Tablet Sulfamethoxazole- Trimethoprim 800-160 MG Sulfamethoxazole-Trimethoprim 800-160 MG 03/22/2020 12:00:00 AM EST 1.0 {tablet} suspended Sulfamethoxazole-Trimethoprim 800-160 MG eCW1 ([facility]) Sulfamethoxazole 800 MG / Trimethoprim 1 60 MG Oral Tablet Sulfamethoxazole- Trimethoprim 800-160 MG Sulfamethoxazole-Trimethoprim 800-160 MG 03/22/2020 12:00:00 AM EST 1.0 {tablet} suspended Sulfamethoxazole-Trimethoprim 800-160 MG eCW1 ([facility]) Folic Acid 0.4 MG Oral Tablet Folic Acid 400 MCG Folic Acid 400 MCG 03/22/2020 12:00:00 AM EST 1.0 {tablet} suspended Folic Acid 400 MCG eCW1 ([facility]) Sulfamethoxazole 800 MG / Trimethoprim 1 60 MG Oral Tablet Sulfamethoxazole- Trimethoprim 800-160 MG Sulfamethoxazole-Trimethoprim 800-160 MG 03/22/2020 12:00:00 AM EST 1.0 {tablet} suspended Sulfamethoxazole-Trimethoprim 800-160 MG eCW1 ([facility]) Sulfamethoxazole 800 MG / Trimethoprim 1 60 MG Oral Tablet Sulfamethoxazole- Trimethoprim 800-160 MG Sulfamethoxazole-Trimethoprim 800-160 MG 03/22/2020 12:00:00 AM EST 1.0 {tablet} active Sulfamethoxazole-Trimethoprim 800-160 MG eCW1 ([facility]) Folic Acid 0.4 MG Oral Tablet Folic Acid 400 MCG Folic Acid 400 MCG 03/22/2020 12:00:00 AM EST 1.0 {tablet} suspended Folic Acid 400 MCG eCW1 ([facility]) Sulfamethoxazole 800 MG / Trimethoprim 1 60 MG Oral Tablet Sulfamethoxazole- Trimethoprim 800-160 MG Sulfamethoxazole-Trimethoprim 800-160 MG 03/22/2020 12:00:00 AM EST 1.0 {tablet} active Sulfamethoxazole-Trimethoprim 800-160 MG eCW1 ([facility]) Folic Acid 0.4 MG Oral Tablet Folic Acid 400 MCG Folic Acid 400 MCG 03/22/2020 12:00:00 AM EST 1.0 {tablet} suspended Folic Acid 400 MCG eCW1 ([facility]) Sulfamethoxazole 800 MG / Trimethoprim 1 60 MG Oral Tablet Sulfamethoxazole- Trimethoprim 800-160 MG Sulfamethoxazole-Trimethoprim 800-160 MG 03/22/2020 12:00:00 AM EST 1.0 {tablet} suspended Sulfamethoxazole-Trimethoprim 800-160 MG eCW1 ([facility]) Sulfamethoxazole 800 MG / Trimethoprim 1 60 MG Oral Tablet Sulfamethoxazole- Trimethoprim 800-160 MG Sulfamethoxazole-Trimethoprim 800-160 MG 03/22/2020 12:00:00 AM EST 1.0 {tablet} active Sulfamethoxazole-Trimethoprim 800-160 MG eCW1 ([facility]) Folic Acid 0.4 MG Oral Tablet Folic Acid 400 MCG Folic Acid 400 MCG 03/22/2020 12:00:00 AM EST 1.0 {tablet} active Fo lic Acid 400 MCG eCW1 ([facility]) Sulfamethoxazole 800 MG / Trimethoprim 1 60 MG Oral Tablet Sulfamethoxazole- Trimethoprim 800-160 MG Sulfamethoxazole-Trimethoprim 800-160 MG 03/22/2020 12:00:00 AM EST 1.0 {tablet} active Sulfamethoxazole-Trimethoprim 800-160 MG eCW1 ([facility]) Sulfamethoxazole 800 MG / Trimethoprim 1 60 MG Oral Tablet Sulfamethoxazole- Trimethoprim 800-160 MG Sulfamethoxazole-Trimethoprim 800-160 MG 03/22/2020 12:00:00 AM EST 1.0 {tablet} suspended Sulfamethoxazole-Trimethoprim 800-160 MG eCW1 ([facility]) Folic Acid 0.4 MG Oral Tablet Folic Acid 400 MCG Folic Acid 400 MCG 03/22/2020 12:00:00 AM EST 1.0 {tablet} active Fo lic Acid 400 MCG eCW1 ([facility]) Sulfamethoxazole 800 MG / Trimethoprim 1 60 MG Oral Tablet Sulfamethoxazole- Trimethoprim 800-160 MG Sulfamethoxazole-Trimethoprim 800-160 MG 03/22/2020 12:00:00 AM EST 1.0 {tablet} suspended Sulfamethoxazole-Trimethoprim 800-160 MG eCW1 ([facility]) Sulfamethoxazole 800 MG / Trimethoprim 1 60 MG Oral Tablet Sulfamethoxazole- Trimethoprim 800-160 MG Sulfamethoxazole-Trimethoprim 800-160 MG 03/22/2020 12:00:00 AM EST 1.0 {tablet} suspended Sulfamethoxazole-Trimethoprim 800-160 MG eCW1 ([facility]) Sulfamethoxazole 800 MG / Trimethoprim 1 60 MG Oral Tablet Sulfamethoxazole- Trimethoprim 800-160 MG Sulfamethoxazole-Trimethoprim 800-160 MG 03/22/2020 12:00:00 AM EST 1.0 {tablet} suspended Sulfamethoxazole-Trimethoprim 800-160 MG eCW1 ([facility]) Sulfamethoxazole 800 MG / Trimethoprim 1 60 MG Oral Tablet Sulfamethoxazole- Trimethoprim 800-160 MG Sulfamethoxazole-Trimethoprim 800-160 MG 03/22/2020 12:00:00 AM EST 1.0 {tablet} suspended Sulfamethoxazole-Trimethoprim 800-160 MG eCW1 ([facility]) Folic Acid 0.4 MG Oral Tablet Folic Acid 400 MCG Folic Acid 400 MCG 03/22/2020 12:00:00 AM EST 1.0 {tablet} active Fo lic Acid 400 MCG eCW1 ([facility]) Folic Acid 0.4 MG Oral Tablet Folic Acid 400 MCG Folic Acid 400 MCG 03/22/2020 12:00:00 AM EST 1.0 {tablet} suspended Folic Acid 400 MCG eCW1 ([facility]) Folic Acid 0.4 MG Oral Tablet Folic Acid 400 MCG Folic Acid 400 MCG 03/22/2020 12:00:00 AM EST 1.0 {tablet} active Fo lic Acid 400 MCG eCW1 ([facility]) Sulfamethoxazole 800 MG / Trimethoprim 1 60 MG Oral Tablet Sulfamethoxazole- Trimethoprim 800-160 MG Sulfamethoxazole-Trimethoprim 800-160 MG 03/22/2020 12:00:00 AM EST 1.0 {tablet} suspended Sulfamethoxazole-Trimethoprim 800-160 MG eCW1 ([facility]) Folic Acid 0.4 MG Oral Tablet Folic Acid 400 MCG Folic Acid 400 MCG 03/22/2020 12:00:00 AM EST 1.0 {tablet} active Fo lic Acid 400 MCG eCW1 ([facility]) Sulfamethoxazole 800 MG / Trimethoprim 1 60 MG Oral Tablet Sulfamethoxazole- Trimethoprim 800-160 MG Sulfamethoxazole-Trimethoprim 800-160 MG 03/22/2020 12:00:00 AM EST 1.0 {tablet} active Sulfamethoxazole-Trimethoprim 800-160 MG eCW1 ([facility]) Folic Acid 0.4 MG Oral Tablet Folic Acid 400 MCG Folic Acid 400 MCG 03/22/2020 12:00:00 AM EST 1.0 {tablet} active Fo lic Acid 400 MCG eCW1 ([facility]) Folic Acid 0.4 MG Oral Tablet Folic Acid 400 MCG Folic Acid 400 MCG 03/22/2020 12:00:00 AM EST 1.0 {tablet} active Fo lic Acid 400 MCG eCW1 ([facility]) Sulfamethoxazole 800 MG / Trimethoprim 1 60 MG Oral Tablet Sulfamethoxazole- Trimethoprim 800-160 MG Sulfamethoxazole-Trimethoprim 800-160 MG 03/22/2020 12:00:00 AM EST 1.0 {tablet} active Sulfamethoxazole-Trimethoprim 800-160 MG eCW1 ([facility]) Sulfamethoxazole 800 MG / Trimethoprim 1 60 MG Oral Tablet Sulfamethoxazole- Trimethoprim 800-160 MG Sulfamethoxazole-Trimethoprim 800-160 MG 03/22/2020 12:00:00 AM EST 1.0 {tablet} active Sulfamethoxazole-Trimethoprim 800-160 MG eCW1 ([facility]) Folic Acid 0.4 MG Oral Tablet Folic Acid 400 MCG Folic Acid 400 MCG 03/22/2020 12:00:00 AM EST 1.0 {tablet} active Fo lic Acid 400 MCG eCW1 ([facility]) Sulfamethoxazole 800 MG / Trimethoprim 1 60 MG Oral Tablet Sulfamethoxazole- Trimethoprim 800-160 MG Sulfamethoxazole-Trimethoprim 800-160 MG 03/22/2020 12:00:00 AM EST 1.0 {tablet} active Sulfamethoxazole-Trimethoprim 800-160 MG eCW1 ([facility]) Folic Acid 0.4 MG Oral Tablet Folic Acid 400 MCG Folic Acid 400 MCG 03/22/2020 12:00:00 AM EST 1.0 {tablet} active Fo lic Acid 400 MCG eCW1 ([facility]) Sulfamethoxazole 800 MG / Trimethoprim 1 60 MG Oral Tablet Sulfamethoxazole- Trimethoprim 800-160 MG Sulfamethoxazole-Trimethoprim 800-160 MG 03/22/2020 12:00:00 AM EST 1.0 {tablet} active Sulfamethoxazole-Trimethoprim 800-160 MG eCW1 ([facility]) Sulfamethoxazole 800 MG / Trimethoprim 1 60 MG Oral Tablet Sulfamethoxazole- Trimethoprim 800-160 MG Sulfamethoxazole-Trimethoprim 800-160 MG 03/22/2020 12:00:00 AM EST 1.0 {tablet} suspended Sulfamethoxazole-Trimethoprim 800-160 MG eCW1 ([facility]) Folic Acid 0.4 MG Oral Tablet Folic Acid 400 MCG Folic Acid 400 MCG 03/22/2020 12:00:00 AM EST 1.0 {tablet} suspended Folic Acid 400 MCG eCW1 ([facility]) Folic Acid 0.4 MG Oral Tablet Folic Acid 400 MCG Folic Acid 400 MCG 03/22/2020 12:00:00 AM EST 1.0 {tablet} active Fo lic Acid 400 MCG eCW1 ([facility]) Folic Acid 0.4 MG Oral Tablet Folic Acid 400 MCG Folic Acid 400 MCG 03/22/2020 12:00:00 AM EST 1.0 {tablet} active Fo lic Acid 400 MCG eCW1 ([facility]) Sulfamethoxazole 800 MG / Trimethoprim 1 60 MG Oral Tablet Sulfamethoxazole- Trimethoprim 800-160 MG Sulfamethoxazole-Trimethoprim 800-160 MG 03/22/2020 12:00:00 AM EST 1.0 {tablet} active Sulfamethoxazole-Trimethoprim 800-160 MG eCW1 ([facility]) Folic Acid 0.4 MG Oral Tablet Folic Acid 400 MCG Folic Acid 400 MCG 03/22/2020 12:00:00 AM EST 1.0 {tablet} suspended Folic Acid 400 MCG eCW1 ([facility]) Folic Acid 0.4 MG Oral Tablet Folic Acid 400 MCG Folic Acid 400 MCG 03/22/2020 12:00:00 AM EST 1.0 {tablet} active Fo lic Acid 400 MCG eCW1 ([facility]) Folic Acid 0.4 MG Oral Tablet Folic Acid 400 MCG Folic Acid 400 MCG 03/22/2020 12:00:00 AM EST 1.0 {tablet} suspended Folic Acid 400 MCG eCW1 ([facility]) Sulfamethoxazole 800 MG / Trimethoprim 1 60 MG Oral Tablet Sulfamethoxazole- Trimethoprim 800-160 MG Sulfamethoxazole-Trimethoprim 800-160 MG 03/22/2020 12:00:00 AM EST 1.0 {tablet} active Sulfamethoxazole-Trimethoprim 800-160 MG eCW1 ([facility]) Folic Acid 0.4 MG Oral Tablet Folic Acid 400 MCG Folic Acid 400 MCG 03/22/2020 12:00:00 AM EST 1.0 {tablet} active Fo lic Acid 400 MCG eCW1 ([facility]) Folic Acid 0.4 MG Oral Tablet Folic Acid 400 MCG Folic Acid 400 MCG 03/22/2020 12:00:00 AM EST 1.0 {tablet} suspended Folic Acid 400 MCG eCW1 ([facility]) Sulfamethoxazole 800 MG / Trimethoprim 1 60 MG Oral Tablet Sulfamethoxazole- Trimethoprim 800-160 MG Sulfamethoxazole-Trimethoprim 800-160 MG 03/22/2020 12:00:00 AM EST 1.0 {tablet} suspended Sulfamethoxazole-Trimethoprim 800-160 MG eCW1 ([facility]) Sulfamethoxazole 800 MG / Trimethoprim 1 60 MG Oral Tablet Sulfamethoxazole- Trimethoprim 800-160 MG Sulfamethoxazole-Trimethoprim 800-160 MG 03/22/2020 12:00:00 AM EST 1.0 {tablet} suspended Sulfamethoxazole-Trimethoprim 800-160 MG eCW1 ([facility]) Folic Acid 0.4 MG Oral Tablet Folic Acid 400 MCG Folic Acid 400 MCG 03/22/2020 12:00:00 AM EST 1.0 {tablet} active Fo lic Acid 400 MCG eCW1 ([facility]) Folic Acid 0.4 MG Oral Tablet Folic Acid 400 MCG Folic Acid 400 MCG 03/22/2020 12:00:00 AM EST 1.0 {tablet} suspended Folic Acid 400 MCG eCW1 ([facility]) Sulfamethoxazole 800 MG / Trimethoprim 1 60 MG Oral Tablet Sulfamethoxazole- Trimethoprim 800-160 MG Sulfamethoxazole-Trimethoprim 800-160 MG 03/22/2020 12:00:00 AM EST 1.0 {tablet} active Sulfamethoxazole-Trimethoprim 800-160 MG eCW1 ([facility]) Folic Acid 0.4 MG Oral Tablet Folic Acid 400 MCG Folic Acid 400 MCG 03/22/2020 12:00:00 AM EST 1.0 {tablet} suspended Folic Acid 400 MCG eCW1 ([facility]) Folic Acid 0.4 MG Oral Tablet Folic Acid 400 MCG Folic Acid 400 MCG 03/22/2020 12:00:00 AM EST 1.0 {tablet} suspended Folic Acid 400 MCG eCW1 ([facility]) 30 mg 03/10/2020 12:00:00 AM EST tablet 40 TAKE ONE TABLET BY MOUTH FOUR TIMES A DAY NEEDED FOR 10 DAYS TAKE ONE TABLET BY MOUTH FOUR TIMES A DA Y NEEDED FOR 10 DAYS SOLD: 03/10/2020 [facility] 10 mg 03/10/2020 12:00:00 AM EST tablet 30 TAKE ONE TABLET BY MOUTH EVERY DAY TAKE ONE TABLET BY MOUTH EVERY DAY SOLD: 03/10/2020 [facility] doxycycline hyclate 100 MG Oral Capsule DOXYCYCLINE HYCLATE 03/10/2020 12:00:00 AM EST capsule 20 TAKE ONE CAPSULE BY MOUTH TW ICE A DAY FOR 10 DAYS TAKE ONE CAPSULE BY MOUTH TWICE A DAY FOR 10 DAYS SOLD: 03/10/2020 [facility] 4 mg 03/10/2020 12:00:00 AM EST capsule 14 TAKE ONE CAPSULE BY MOUTH EVERY DAY FOR 14 DAYS TAKE ONE CAPSULE BY MOUTH EVERY DAY FOR 14 DAYS SOLD: 03/10/2020 [facility] buspirone hydrochloride 15 MG Oral Tablet BUSPIRONE HCL 02/24/2020 12:00:00 AM EST tablet 60 TAKE 1 TABLET BY MOUTH TWO TIMES A DAY (TOTAL OF 25MG EVERY MORNING AND 15MG EVERY EVENING ) TAKE 1 TABLET BY MOUTH TWO TIMES A DAY ( TOTAL OF 25MG EVERY MORNING AND 15MG EVERY EVENING ) SOLD: 02/25/2020 [facility] buspirone hydrochloride 15 MG Oral Tablet BUSPIRONE HCL 02/24/2020 12:00:00 AM EST tablet 60 TAKE 1 TABLET BY MOUTH TWO TIMES A DAY (TOTAL OF 25MG EVERY MORNING AND 15MG EVERY EVENING ) TAKE 1 TABLET BY MOUTH TWO TIMES A DAY ( TOTAL OF 25MG EVERY MORNING AND 15MG EVERY EVENING ) SOLD: 03/21/2020 [facility] buspirone hydrochloride 10 MG Oral Tablet BUSPIRONE HCL 02/23/2020 12:00:00 AM EST tablet 30 TAKE 1 TABLET BY MOUTH EVERY MORNING(TOTAL 25MG AND 15MG EVERY EVENING ) TAKE 1 TABLET BY MOUTH EVERY MORNING(TOT AL 25MG AND 15MG EVERY EVENING ) SOLD: 03/21/2020 [facility] buspirone hydrochloride 10 MG Oral Tablet BUSPIRONE HCL 02/23/2020 12:00:00 AM EST tablet 30 TAKE 1 TABLET BY MOUTH EVERY MORNING(TOTAL 25MG AND 15MG EVERY EVENING ) TAKE 1 TABLET BY MOUTH EVERY MORNING(TOT AL 25MG AND 15MG EVERY EVENING ) SOLD: 02/24/2020 [facility] buspirone hydrochloride 15 MG Oral Tablet BusPIRone HC l 15 MG BusPIRone HCl 15 MG 02/22/2020 12:00:00 AM EST 1.0 {tablet} activ e BusPIRone HCl 15 MG eCW1 ([facility]) buspirone hydrochloride 10 MG Oral Tablet busPIRone HC l 10 MG busPIRone HCl 10 MG 02/22/2020 12:00:00 AM EST 1.0 {tablet} activ e busPIRone HCl 10 MG eCW1 ([facility]) buspirone hydrochloride 15 MG Oral Tablet BusPIRone HC l 15 MG BusPIRone HCl 15 MG 02/22/2020 12:00:00 AM EST 1.0 {tablet} activ e BusPIRone HCl 15 MG eCW1 ([facility]) buspirone hydrochloride 10 MG Oral Tablet BusPIRone HC l 10 MG BusPIRone HCl 10 MG 02/22/2020 12:00:00 AM EST 1.0 {tablet} activ e BusPIRone HCl 10 MG eCW1 ([facility]) buspirone hydrochloride 10 MG Oral Tablet BusPIRone HC l 10 MG BusPIRone HCl 10 MG 02/22/2020 12:00:00 AM EST 1.0 {tablet} activ e BusPIRone HCl 10 MG eCW1 ([facility]) buspirone hydrochloride 15 MG Oral Tablet BusPIRone HC l 15 MG BusPIRone HCl 15 MG 02/22/2020 12:00:00 AM EST 1.0 {tablet} activ e BusPIRone HCl 15 MG eCW1 ([facility]) buspirone hydrochloride 15 MG Oral Tablet BusPIRone HC l 15 MG BusPIRone HCl 15 MG 02/22/2020 12:00:00 AM EST 1.0 {tablet} activ e BusPIRone HCl 15 MG eCW1 ([facility]) buspirone hydrochloride 15 MG Oral Tablet BusPIRone HC l 15 MG BusPIRone HCl 15 MG 02/22/2020 12:00:00 AM EST 1.0 {tablet} activ e BusPIRone HCl 15 MG eCW1 ([facility]) buspirone hydrochloride 15 MG Oral Tablet BusPIRone HC l 15 MG BusPIRone HCl 15 MG 02/22/2020 12:00:00 AM EST 1.0 {tablet} activ e BusPIRone HCl 15 MG eCW1 ([facility]) buspirone hydrochloride 15 MG Oral Tablet BusPIRone HC l 15 MG BusPIRone HCl 15 MG 02/22/2020 12:00:00 AM EST 1.0 {tablet} activ e BusPIRone HCl 15 MG eCW1 ([facility]) buspirone hydrochloride 15 MG Oral Tablet BusPIRone HC l 15 MG BusPIRone HCl 15 MG 02/22/2020 12:00:00 AM EST 1.0 {tablet} activ e BusPIRone HCl 15 MG eCW1 ([facility]) buspirone hydrochloride 10 MG Oral Tablet BusPIRone HC l 10 MG BusPIRone HCl 10 MG 02/22/2020 12:00:00 AM EST 1.0 {tablet} activ e BusPIRone HCl 10 MG eCW1 ([facility]) buspirone hydrochloride 10 MG Oral Tablet BusPIRone HC l 10 MG BusPIRone HCl 10 MG 02/22/2020 12:00:00 AM EST 1.0 {tablet} activ e BusPIRone HCl 10 MG eCW1 ([facility]) buspirone hydrochloride 15 MG Oral Tablet BusPIRone HC l 15 MG BusPIRone HCl 15 MG 02/22/2020 12:00:00 AM EST 1.0 {tablet} activ e BusPIRone HCl 15 MG eCW1 ([facility]) buspirone hydrochloride 10 MG Oral Tablet busPIRone HC l 10 MG busPIRone HCl 10 MG 02/22/2020 12:00:00 AM EST 1.0 {tablet} activ e busPIRone HCl 10 MG eCW1 ([facility]) buspirone hydrochloride 10 MG Oral Tablet BusPIRone HC l 10 MG BusPIRone HCl 10 MG 02/22/2020 12:00:00 AM EST 1.0 {tablet} activ e BusPIRone HCl 10 MG eCW1 ([facility]) buspirone hydrochloride 10 MG Oral Tablet busPIRone HC l 10 MG busPIRone HCl 10 MG 02/22/2020 12:00:00 AM EST 1.0 {tablet} activ e busPIRone HCl 10 MG eCW1 ([facility]) buspirone hydrochloride 15 MG Oral Tablet BusPIRone HC l 15 MG BusPIRone HCl 15 MG 02/22/2020 12:00:00 AM EST 1.0 {tablet} activ e BusPIRone HCl 15 MG eCW1 ([facility]) buspirone hydrochloride 10 MG Oral Tablet BusPIRone HC l 10 MG BusPIRone HCl 10 MG 02/22/2020 12:00:00 AM EST 1.0 {tablet} activ e BusPIRone HCl 10 MG eCW1 ([facility]) buspirone hydrochloride 10 MG Oral Tablet BusPIRone HC l 10 MG BusPIRone HCl 10 MG 02/22/2020 12:00:00 AM EST 1.0 {tablet} activ e BusPIRone HCl 10 MG eCW1 ([facility]) buspirone hydrochloride 15 MG Oral Tablet BusPIRone HC l 15 MG BusPIRone HCl 15 MG 02/22/2020 12:00:00 AM EST 1.0 {tablet} activ e BusPIRone HCl 15 MG eCW1 ([facility]) buspirone hydrochloride 15 MG Oral Tablet BusPIRone HC l 15 MG BusPIRone HCl 15 MG 02/22/2020 12:00:00 AM EST 1.0 {tablet} activ e BusPIRone HCl 15 MG eCW1 ([facility]) buspirone hydrochloride 10 MG Oral Tablet BusPIRone HC l 10 MG BusPIRone HCl 10 MG 02/22/2020 12:00:00 AM EST 1.0 {tablet} activ e BusPIRone HCl 10 MG eCW1 ([facility]) buspirone hydrochloride 15 MG Oral Tablet busPIRone HC l 15 MG busPIRone HCl 15 MG 02/22/2020 12:00:00 AM EST 1.0 {tablet} activ e busPIRone HCl 15 MG eCW1 ([facility]) buspirone hydrochloride 15 MG Oral Tablet busPIRone HC l 15 MG busPIRone HCl 15 MG 02/22/2020 12:00:00 AM EST 1.0 {tablet} activ e busPIRone HCl 15 MG eCW1 ([facility]) buspirone hydrochloride 15 MG Oral Tablet busPIRone HC l 15 MG busPIRone HCl 15 MG 02/22/2020 12:00:00 AM EST 1.0 {tablet} activ e busPIRone HCl 15 MG eCW1 ([facility]) buspirone hydrochloride 15 MG Oral Tablet BusPIRone HC l 15 MG BusPIRone HCl 15 MG 02/22/2020 12:00:00 AM EST 1.0 {tablet} activ e BusPIRone HCl 15 MG eCW1 ([facility]) buspirone hydrochloride 15 MG Oral Tablet BusPIRone HC l 15 MG BusPIRone HCl 15 MG 02/22/2020 12:00:00 AM EST 1.0 {tablet} activ e BusPIRone HCl 15 MG eCW1 ([facility]) buspirone hydrochloride 10 MG Oral Tablet BusPIRone HC l 10 MG BusPIRone HCl 10 MG 02/22/2020 12:00:00 AM EST 1.0 {tablet} activ e BusPIRone HCl 10 MG eCW1 ([facility]) buspirone hydrochloride 15 MG Oral Tablet BusPIRone HC l 15 MG BusPIRone HCl 15 MG 02/22/2020 12:00:00 AM EST 1.0 {tablet} activ e BusPIRone HCl 15 MG eCW1 ([facility]) buspirone hydrochloride 15 MG Oral Tablet BusPIRone HC l 15 MG BusPIRone HCl 15 MG 02/22/2020 12:00:00 AM EST 1.0 {tablet} activ e BusPIRone HCl 15 MG eCW1 ([facility]) buspirone hydrochloride 10 MG Oral Tablet busPIRone HC l 10 MG busPIRone HCl 10 MG 02/22/2020 12:00:00 AM EST 1.0 {tablet} activ e busPIRone HCl 10 MG eCW1 ([facility]) buspirone hydrochloride 15 MG Oral Tablet BusPIRone HC l 15 MG BusPIRone HCl 15 MG 02/22/2020 12:00:00 AM EST 1.0 {tablet} activ e BusPIRone HCl 15 MG eCW1 ([facility]) buspirone hydrochloride 15 MG Oral Tablet BusPIRone HC l 15 MG BusPIRone HCl 15 MG 02/22/2020 12:00:00 AM EST 1.0 {tablet} activ e BusPIRone HCl 15 MG eCW1 ([facility]) buspirone hydrochloride 10 MG Oral Tablet BusPIRone HC l 10 MG BusPIRone HCl 10 MG 02/22/2020 12:00:00 AM EST 1.0 {tablet} activ e BusPIRone HCl 10 MG eCW1 ([facility]) buspirone hydrochloride 15 MG Oral Tablet busPIRone HC l 15 MG busPIRone HCl 15 MG 02/22/2020 12:00:00 AM EST 1.0 {tablet} activ e busPIRone HCl 15 MG eCW1 ([facility]) buspirone hydrochloride 10 MG Oral Tablet BusPIRone HC l 10 MG BusPIRone HCl 10 MG 02/22/2020 12:00:00 AM EST 1.0 {tablet} activ e BusPIRone HCl 10 MG eCW1 ([facility]) buspirone hydrochloride 15 MG Oral Tablet BusPIRone HC l 15 MG BusPIRone HCl 15 MG 02/22/2020 12:00:00 AM EST 1.0 {tablet} activ e BusPIRone HCl 15 MG eCW1 ([facility]) buspirone hydrochloride 10 MG Oral Tablet BusPIRone HC l 10 MG BusPIRone HCl 10 MG 02/22/2020 12:00:00 AM EST 1.0 {tablet} activ e BusPIRone HCl 10 MG eCW1 ([facility]) buspirone hydrochloride 10 MG Oral Tablet BusPIRone HC l 10 MG BusPIRone HCl 10 MG 02/22/2020 12:00:00 AM EST 1.0 {tablet} activ e BusPIRone HCl 10 MG eCW1 ([facility]) buspirone hydrochloride 15 MG Oral Tablet BusPIRone HC l 15 MG BusPIRone HCl 15 MG 02/22/2020 12:00:00 AM EST 1.0 {tablet} activ e BusPIRone HCl 15 MG eCW1 ([facility]) buspirone hydrochloride 15 MG Oral Tablet BusPIRone HC l 15 MG BusPIRone HCl 15 MG 02/22/2020 12:00:00 AM EST 1.0 {tablet} activ e BusPIRone HCl 15 MG eCW1 ([facility]) buspirone hydrochloride 15 MG Oral Tablet busPIRone HC l 15 MG busPIRone HCl 15 MG 02/22/2020 12:00:00 AM EST 1.0 {tablet} activ e busPIRone HCl 15 MG eCW1 ([facility]) buspirone hydrochloride 10 MG Oral Tablet BusPIRone HC l 10 MG BusPIRone HCl 10 MG 02/22/2020 12:00:00 AM EST 1.0 {tablet} activ e BusPIRone HCl 10 MG eCW1 ([facility]) buspirone hydrochloride 15 MG Oral Tablet busPIRone HC l 15 MG busPIRone HCl 15 MG 02/22/2020 12:00:00 AM EST 1.0 {tablet} activ e busPIRone HCl 15 MG eCW1 ([facility]) buspirone hydrochloride 10 MG Oral Tablet busPIRone HC l 10 MG busPIRone HCl 10 MG 02/22/2020 12:00:00 AM EST 1.0 {tablet} activ e busPIRone HCl 10 MG eCW1 ([facility]) buspirone hydrochloride 10 MG Oral Tablet BusPIRone HC l 10 MG BusPIRone HCl 10 MG 02/22/2020 12:00:00 AM EST 1.0 {tablet} activ e BusPIRone HCl 10 MG eCW1 ([facility]) buspirone hydrochloride 10 MG Oral Tablet busPIRone HC l 10 MG busPIRone HCl 10 MG 02/22/2020 12:00:00 AM EST 1.0 {tablet} activ e busPIRone HCl 10 MG eCW1 ([facility]) buspirone hydrochloride 10 MG Oral Tablet BusPIRone HC l 10 MG BusPIRone HCl 10 MG 02/22/2020 12:00:00 AM EST 1.0 {tablet} activ e BusPIRone HCl 10 MG eCW1 ([facility]) buspirone hydrochloride 10 MG Oral Tablet BusPIRone HC l 10 MG BusPIRone HCl 10 MG 02/22/2020 12:00:00 AM EST 1.0 {tablet} activ e BusPIRone HCl 10 MG eCW1 ([facility]) buspirone hydrochloride 15 MG Oral Tablet BusPIRone HC l 15 MG BusPIRone HCl 15 MG 02/22/2020 12:00:00 AM EST 1.0 {tablet} activ e BusPIRone HCl 15 MG eCW1 ([facility]) buspirone hydrochloride 15 MG Oral Tablet BusPIRone HC l 15 MG BusPIRone HCl 15 MG 02/22/2020 12:00:00 AM EST 1.0 {tablet} activ e BusPIRone HCl 15 MG eCW1 ([facility]) buspirone hydrochloride 10 MG Oral Tablet BusPIRone HC l 10 MG BusPIRone HCl 10 MG 02/22/2020 12:00:00 AM EST 1.0 {tablet} activ e BusPIRone HCl 10 MG eCW1 ([facility]) buspirone hydrochloride 10 MG Oral Tablet BusPIRone HC l 10 MG BusPIRone HCl 10 MG 02/22/2020 12:00:00 AM EST 1.0 {tablet} activ e BusPIRone HCl 10 MG eCW1 ([facility]) buspirone hydrochloride 10 MG Oral Tablet BusPIRone HC l 10 MG BusPIRone HCl 10 MG 02/22/2020 12:00:00 AM EST 1.0 {tablet} activ e BusPIRone HCl 10 MG eCW1 ([facility]) buspirone hydrochloride 15 MG Oral Tablet BusPIRone HC l 15 MG BusPIRone HCl 15 MG 02/22/2020 12:00:00 AM EST 1.0 {tablet} activ e BusPIRone HCl 15 MG eCW1 ([facility]) buspirone hydrochloride 15 MG Oral Tablet BusPIRone HC l 15 MG BusPIRone HCl 15 MG 02/22/2020 12:00:00 AM EST 1.0 {tablet} activ e BusPIRone HCl 15 MG eCW1 ([facility]) buspirone hydrochloride 15 MG Oral Tablet BusPIRone HC l 15 MG BusPIRone HCl 15 MG 02/22/2020 12:00:00 AM EST 1.0 {tablet} activ e BusPIRone HCl 15 MG eCW1 ([facility]) buspirone hydrochloride 15 MG Oral Tablet BusPIRone HC l 15 MG BusPIRone HCl 15 MG 02/22/2020 12:00:00 AM EST 1.0 {tablet} activ e BusPIRone HCl 15 MG eCW1 ([facility]) buspirone hydrochloride 10 MG Oral Tablet BusPIRone HC l 10 MG BusPIRone HCl 10 MG 02/22/2020 12:00:00 AM EST 1.0 {tablet} activ e BusPIRone HCl 10 MG eCW1 ([facility]) buspirone hydrochloride 15 MG Oral Tablet busPIRone HC l 15 MG busPIRone HCl 15 MG 02/22/2020 12:00:00 AM EST 1.0 {tablet} activ e busPIRone HCl 15 MG eCW1 ([facility]) buspirone hydrochloride 15 MG Oral Tablet busPIRone HC l 15 MG busPIRone HCl 15 MG 02/22/2020 12:00:00 AM EST 1.0 {tablet} activ e busPIRone HCl 15 MG eCW1 ([facility]) buspirone hydrochloride 10 MG Oral Tablet BusPIRone HC l 10 MG BusPIRone HCl 10 MG 02/22/2020 12:00:00 AM EST 1.0 {tablet} activ e BusPIRone HCl 10 MG eCW1 ([facility]) buspirone hydrochloride 10 MG Oral Tablet busPIRone HC l 10 MG busPIRone HCl 10 MG 02/22/2020 12:00:00 AM EST 1.0 {tablet} activ e busPIRone HCl 10 MG eCW1 ([facility]) buspirone hydrochloride 10 MG Oral Tablet BusPIRone HC l 10 MG BusPIRone HCl 10 MG 02/22/2020 12:00:00 AM EST 1.0 {tablet} activ e BusPIRone HCl 10 MG eCW1 ([facility]) buspirone hydrochloride 15 MG Oral Tablet BusPIRone HC l 15 MG BusPIRone HCl 15 MG 02/22/2020 12:00:00 AM EST 1.0 {tablet} activ e BusPIRone HCl 15 MG eCW1 ([facility]) buspirone hydrochloride 10 MG Oral Tablet BusPIRone HC l 10 MG BusPIRone HCl 10 MG 02/22/2020 12:00:00 AM EST 1.0 {tablet} activ e BusPIRone HCl 10 MG eCW1 ([facility]) buspirone hydrochloride 10 MG Oral Tablet BusPIRone HC l 10 MG BusPIRone HCl 10 MG 02/22/2020 12:00:00 AM EST 1.0 {tablet} activ e BusPIRone HCl 10 MG eCW1 ([facility]) buspirone hydrochloride 15 MG Oral Tablet BusPIRone HC l 15 MG BusPIRone HCl 15 MG 02/22/2020 12:00:00 AM EST 1.0 {tablet} activ e BusPIRone HCl 15 MG eCW1 ([facility]) buspirone hydrochloride 10 MG Oral Tablet BusPIRone HC l 10 MG BusPIRone HCl 10 MG 02/22/2020 12:00:00 AM EST 1.0 {tablet} activ e BusPIRone HCl 10 MG eCW1 ([facility]) buspirone hydrochloride 10 MG Oral Tablet BusPIRone HC l 10 MG BusPIRone HCl 10 MG 02/22/2020 12:00:00 AM EST 1.0 {tablet} activ e BusPIRone HCl 10 MG eCW1 ([facility]) buspirone hydrochloride 10 MG Oral Tablet BusPIRone HC l 10 MG BusPIRone HCl 10 MG 02/22/2020 12:00:00 AM EST 1.0 {tablet} activ e BusPIRone HCl 10 MG eCW1 ([facility]) buspirone hydrochloride 15 MG Oral Tablet BusPIRone HC l 15 MG BusPIRone HCl 15 MG 02/22/2020 12:00:00 AM EST 1.0 {tablet} activ e BusPIRone HCl 15 MG eCW1 ([facility]) buspirone hydrochloride 15 MG Oral Tablet BusPIRone HC l 15 MG BusPIRone HCl 15 MG 02/22/2020 12:00:00 AM EST 1.0 {tablet} activ e BusPIRone HCl 15 MG eCW1 ([facility]) buspirone hydrochloride 10 MG Oral Tablet BusPIRone HC l 10 MG BusPIRone HCl 10 MG 02/22/2020 12:00:00 AM EST 1.0 {tablet} activ e BusPIRone HCl 10 MG eCW1 ([facility]) buspirone hydrochloride 10 MG Oral Tablet busPIRone HC l 10 MG busPIRone HCl 10 MG 02/22/2020 12:00:00 AM EST 1.0 {tablet} activ e busPIRone HCl 10 MG eCW1 ([facility]) buspirone hydrochloride 15 MG Oral Tablet BusPIRone HC l 15 MG BusPIRone HCl 15 MG 02/22/2020 12:00:00 AM EST 1.0 {tablet} activ e BusPIRone HCl 15 MG eCW1 ([facility]) buspirone hydrochloride 10 MG Oral Tablet BusPIRone HC l 10 MG BusPIRone HCl 10 MG 02/22/2020 12:00:00 AM EST 1.0 {tablet} activ e BusPIRone HCl 10 MG eCW1 ([facility]) buspirone hydrochloride 15 MG Oral Tablet BusPIRone HC l 15 MG BusPIRone HCl 15 MG 02/22/2020 12:00:00 AM EST 1.0 {tablet} activ e BusPIRone HCl 15 MG eCW1 ([facility]) buspirone hydrochloride 15 MG Oral Tablet BusPIRone HC l 15 MG BusPIRone HCl 15 MG 02/22/2020 12:00:00 AM EST 1.0 {tablet} activ e BusPIRone HCl 15 MG eCW1 ([facility]) buspirone hydrochloride 10 MG Oral Tablet BusPIRone HC l 10 MG BusPIRone HCl 10 MG 02/22/2020 12:00:00 AM EST 1.0 {tablet} activ e BusPIRone HCl 10 MG eCW1 ([facility]) buspirone hydrochloride 15 MG Oral Tablet BusPIRone HC l 15 MG BusPIRone HCl 15 MG 02/22/2020 12:00:00 AM EST 1.0 {tablet} activ e BusPIRone HCl 15 MG eCW1 ([facility]) buspirone hydrochloride 10 MG Oral Tablet BusPIRone HC l 10 MG BusPIRone HCl 10 MG 02/22/2020 12:00:00 AM EST 1.0 {tablet} activ e BusPIRone HCl 10 MG eCW1 ([facility]) buspirone hydrochloride 10 MG Oral Tablet BusPIRone HC l 10 MG BusPIRone HCl 10 MG 02/22/2020 12:00:00 AM EST 1.0 {tablet} activ e BusPIRone HCl 10 MG eCW1 ([facility]) buspirone hydrochloride 10 MG Oral Tablet BusPIRone HC l 10 MG BusPIRone HCl 10 MG 02/22/2020 12:00:00 AM EST 1.0 {tablet} activ e BusPIRone HCl 10 MG eCW1 ([facility]) buspirone hydrochloride 10 MG Oral Tablet BusPIRone HC l 10 MG BusPIRone HCl 10 MG 02/22/2020 12:00:00 AM EST 1.0 {tablet} activ e BusPIRone HCl 10 MG eCW1 ([facility]) buspirone hydrochloride 15 MG Oral Tablet BusPIRone HC l 15 MG BusPIRone HCl 15 MG 01/22/2020 12:00:00 AM EST 1.0 {tablet} activ e BusPIRone HCl 15 MG eCW1 ([facility]) buspirone hydrochloride 15 MG Oral Tablet BusPIRone HC l 15 MG BusPIRone HCl 15 MG 01/22/2020 12:00:00 AM EST 1.0 {tablet} activ e BusPIRone HCl 15 MG eCW1 ([facility]) buspirone hydrochloride 15 MG Oral Tablet BusPIRone HC l 15 MG BusPIRone HCl 15 MG 01/22/2020 12:00:00 AM EST 1.0 {tablet} activ e BusPIRone HCl 15 MG eCW1 ([facility]) buspirone hydrochloride 15 MG Oral Tablet BusPIRone HC l 15 MG BusPIRone HCl 15 MG 01/22/2020 12:00:00 AM EST 1.0 {tablet} activ e BusPIRone HCl 15 MG eCW1 ([facility]) buspirone hydrochloride 15 MG Oral Tablet BusPIRone HC l 15 MG BusPIRone HCl 15 MG 01/22/2020 12:00:00 AM EST 1.0 {tablet} activ e BusPIRone HCl 15 MG eCW1 ([facility]) buspirone hydrochloride 15 MG Oral Tablet BUSPIRONE HCL 01/22/2020 12:00:00 AM EST tablet 60 TAKE ONE TABLET BY MOUTH TWI CE A DAY TAKE ONE TABLET BY MOUTH TWICE A DAY SOLD: 01/22/2020 [facility] buspirone hydrochloride 15 MG Oral Tablet BusPIRone HC l 15 MG BusPIRone HCl 15 MG 01/22/2020 12:00:00 AM EST 1.0 {tablet} activ e BusPIRone HCl 15 MG eCW1 ([facility]) buspirone hydrochloride 15 MG Oral Tablet BusPIRone HC l 15 MG BusPIRone HCl 15 MG 01/22/2020 12:00:00 AM EST 1.0 {tablet} activ e BusPIRone HCl 15 MG eCW1 ([facility]) buspirone hydrochloride 15 MG Oral Tablet BusPIRone HC l 15 MG BusPIRone HCl 15 MG 01/22/2020 12:00:00 AM EST 1.0 {tablet} activ e BusPIRone HCl 15 MG eCW1 ([facility]) buspirone hydrochloride 15 MG Oral Tablet BusPIRone HC l 15 MG BusPIRone HCl 15 MG 01/22/2020 12:00:00 AM EST 1.0 {tablet} activ e BusPIRone HCl 15 MG eCW1 ([facility]) buspirone hydrochloride 15 MG Oral Tablet BusPIRone HC l 15 MG BusPIRone HCl 15 MG 01/22/2020 12:00:00 AM EST 1.0 {tablet} activ e BusPIRone HCl 15 MG eCW1 ([facility]) buspirone hydrochloride 15 MG Oral Tablet BusPIRone HC l 15 MG BusPIRone HCl 15 MG 01/22/2020 12:00:00 AM EST 1.0 {tablet} activ e BusPIRone HCl 15 MG eCW1 ([facility]) buspirone hydrochloride 15 MG Oral Tablet BusPIRone HC l 15 MG BusPIRone HCl 15 MG 01/22/2020 12:00:00 AM EST 1.0 {tablet} activ e BusPIRone HCl 15 MG eCW1 ([facility]) buspirone hydrochloride 15 MG Oral Tablet BusPIRone HC l 15 MG BusPIRone HCl 15 MG 01/22/2020 12:00:00 AM EST 1.0 {tablet} activ e BusPIRone HCl 15 MG eCW1 ([facility]) buspirone hydrochloride 15 MG Oral Tablet BusPIRone HC l 15 MG BusPIRone HCl 15 MG 01/22/2020 12:00:00 AM EST 1.0 {tablet} activ e BusPIRone HCl 15 MG eCW1 ([facility]) buspirone hydrochloride 7.5 MG Oral Tablet BusPIRone H Cl 7.5 MG BusPIRone HCl 7.5 MG 01/01/2020 12:00:00 AM EDT 1.0 {tablet} activ e BusPIRone HCl 7.5 MG eCW1 ([facility]) buspirone hydrochloride 7.5 MG Oral Tablet BusPIRone H Cl 7.5 MG BusPIRone HCl 7.5 MG 01/01/2020 12:00:00 AM EDT 1.0 {tablet} activ e BusPIRone HCl 7.5 MG eCW1 ([facility]) buspirone hydrochloride 7.5 MG Oral Tablet BusPIRone H Cl 7.5 MG BusPIRone HCl 7.5 MG 01/01/2020 12:00:00 AM EDT 1.0 {tablet} activ e BusPIRone HCl 7.5 MG eCW1 ([facility]) buspirone hydrochloride 7.5 MG Oral Tablet BusPIRone H Cl 7.5 MG BusPIRone HCl 7.5 MG 01/01/2020 12:00:00 AM EDT 1.0 {tablet} activ e BusPIRone HCl 7.5 MG eCW1 ([facility]) buspirone hydrochloride 7.5 MG Oral Tablet BusPIRone H Cl 7.5 MG BusPIRone HCl 7.5 MG 01/01/2020 12:00:00 AM EDT 1.0 {tablet} activ e BusPIRone HCl 7.5 MG eCW1 ([facility]) buspirone hydrochloride 7.5 MG Oral Tablet BusPIRone H Cl 7.5 MG BusPIRone HCl 7.5 MG 01/01/2020 12:00:00 AM EDT 1.0 {tablet} activ e BusPIRone HCl 7.5 MG eCW1 ([facility]) buspirone hydrochloride 7.5 MG Oral Tablet BusPIRone H Cl 7.5 MG BusPIRone HCl 7.5 MG 01/01/2020 12:00:00 AM EDT 1.0 {tablet} activ e BusPIRone HCl 7.5 MG eCW1 ([facility]) buspirone hydrochloride 7.5 MG Oral Tablet BusPIRone H Cl 7.5 MG BusPIRone HCl 7.5 MG 01/01/2020 12:00:00 AM EDT 1.0 {tablet} activ e BusPIRone HCl 7.5 MG eCW1 ([facility]) Paroxetine Hydrochloride 40 MG Oral Tablet PAROXETINE HCL 12/20/2019 12:00:00 AM EDT tablet 30 TAKE ONE TABLET BY MOUTH IN THE MORNING ONCE A DAY TAKE ONE TABLET BY MOUTH IN THE MORNING ONCE A DAY SOLD: 01/25/2020 [facility] Paroxetine Hydrochloride 40 MG Oral Tablet PAROXETINE HCL 12/20/2019 12:00:00 AM EDT tablet 30 TAKE ONE TABLET BY MOUTH IN THE MORNING ONCE A DAY TAKE ONE TABLET BY MOUTH IN THE MORNING ONCE A DAY SOLD: 12/31/2019 [facility] Paroxetine Hydrochloride 40 MG Oral Tablet PAROXETINE HCL 12/20/2019 12:00:00 AM EDT tablet 30 TAKE ONE TABLET BY MOUTH IN THE MORNING ONCE A DAY TAKE ONE TABLET BY MOUTH IN THE MORNING ONCE A DAY SOLD: 02/28/2020 [facility] buspirone hydrochloride 5 MG Oral Tablet BusPIRone HCl 5 MG BusPIRone HCl 5 MG 12/18/2019 12:00:00 AM EDT 1.0 {tablet} active BusPIRone HCl 5 MG eCW1 ([facility]) buspirone hydrochloride 5 MG Oral Tablet BusPIRone HCl 5 MG BusPIRone HCl 5 MG 12/18/2019 12:00:00 AM EDT 1.0 {tablet} active BusPIRone HCl 5 MG eCW1 ([facility]) buspirone hydrochloride 5 MG Oral Tablet BUSPIRONE HCL 12/18/2019 12:00:00 AM EDT tablet 60 TAKE ONE TABLET BY MOUTH TWI CE A DAY TAKE ONE TABLET BY MOUTH TWICE A DAY SOLD: 12/18/2019 [facility] Paroxetine Hydrochloride 40 MG Oral Tablet PAROXETINE HCL 08/18/2019 12:00:00 AM EDT tablet 30 TAKE ONE TABLET BY MOUTH HUGH RY MORNING TAKE ONE TABLET BY MOUTH EVERY MORNING SOLD: 12/02/[address] [facility] 0.25-35 mg-mcg 06/25/2019 12:00:00 AM EDT tablet 28 TAKE ONE TABLET BY MOUTH EVERY DAY TAKE ONE TABLET BY MOUTH EVERY DAY SOLD: 12/09/2019 [facility] 0.25-35 mg-mcg 06/25/2019 12:00:00 AM EDT tablet 28 TAKE ONE TABLET BY MOUTH EVERY DAY TAKE ONE TABLET BY MOUTH EVERY DAY SOLD: 02/05/2020 [facility] 0.25-35 mg-mcg 06/25/2019 12:00:00 AM EDT tablet 28 TAKE ONE TABLET BY MOUTH EVERY DAY TAKE ONE TABLET BY MOUTH EVERY DAY SOLD: 04/21/2020 [facility] 0.25-35 mg-mcg 06/25/2019 12:00:00 AM EDT tablet 28 TAKE ONE TABLET BY MOUTH EVERY DAY TAKE ONE TABLET BY MOUTH EVERY DAY SOLD: 03/21/2020 [facility] 0.25-35 mg-mcg 06/25/2019 12:00:00 AM EDT tablet 28 TAKE ONE TABLET BY MOUTH EVERY DAY TAKE ONE TABLET BY MOUTH EVERY DAY SOLD: 02/28/2020 [facility] Insurance Providers Payer name Policy type / Coverage type Policy ID Covered constitution party ID Covered constitution party's relationship to worrell Policy Worrell Plan Information [employer] [id number] Self [id number] [employer] [id number] [facility] [id number] [facility] [id number] S [id number] ANSI-Commercial [id number] ANSI-Commercial [id number] ANSI-Commercial [id number] [facility] [id number] [facility] [id number] ANSI-Commercial [id number] ANSI-Commercial [id number] ANSI-Commercial [id number]-[id number] ANSI-Commercial [id number]-[id number]-m81o-[id number] ANSI-Commercial [id number] ANSI-Commercial [id number] ANSI-Commercial [id number]-[id number] ANSI-Commercial [id number]-[id number]-[id number] ANSI-Commercial [id number] ANSI-Commercial [id number] ANSI-Commercial [id number]-[id number] ANSI-Commercial [id number] ANSI-Commercial [id number] [id number]-m5kc-[id number] ANSI-Commercial [id number]-p065-7p87-3a37-[id number] 6gxo016d-z988-8s02-0w55-[id number] ANSI-Commercial [id number]-oiw6tlnyg6q4 [id number]-[id number]-lqz7rzvfc8t5 ANSI-Commercial [id number]-17l3-7job-[id number] ANSI-Commercial [id number]-[id number] [id number]-[id number] ANSI-Commercial [id number]-gwe6-w53s36g2v1f4 cuay9815-2ns1-5b89-ldb7-e94t51b5g2r3 ANSI-Commercial o31g734c-31x6-69v6-010b-04n43g3e5c68 h80q446i-46s9-70d8-112k-12a97c9i6q78 ANSI-Commercial [id number]-[id number] 7s261yh7-9p63-2167-[id number] ANSI-Commercial czw8585d-3tqn-9l44-1k3j-g9h92980fc9c [id number]-1hgb-1j41-7c0g-[id number] [facility] Commercial [id number] [facility] [id number] ANSI-Commercial [id number] 134hj5gl-[id number] ANSI-Commercial ne7pz192-635q-80z3-37l4-5aqa50202ibx sb0tj495-520t-35z7-42e2-3wjx66302uhv ANSI-Commercial 1dw1s038-aju6-0l07-68o1-97g8g1vq825n 1yc3p422-vjz5-7c42-36w9-61n2i5kr794d ANSI-Commercial neo29xra-p1j8-60i5-1094-n2c16y45984x qqk61azx-i4g0-59z2-5492-c4g24y53471k ANSI-Commercial [id number] sjl0ltr6-3553-962b-[id number] ANSI-Commercial [id number]-[id number]-[id number] 170271r4-ck74-6kkm-1x85-9199g64qt227 ANSI-Commercial 5ct78o43-b4f0-831v-9ei8-39j1z642qh9r 1ih19s27-z0b5-542r-6lv0-52p2o415ix7i ANSI-Commercial b858p54v-57u7-850u-qdt8-40myr58x1252 r229u14d-05z2-776b-qox4-18twr87m4579 ANSI-Commercial 73md942o-f8a5-69nf-98la-3qn90180l3u7 39mj272b-b3i2-58gv-46hq-[id number] [employer] Commercial [id number] [facility] [id number] ANSI-Commercial j0t6rtjy-mjax-88fg-kfli-[id number] d8a8uyxi-gnum-79xe-fkmy-k80na548435g ANSI-Commercial 0u9f069g-f53y-36so-[id number] 6w8c118e-u67d-94iy-[id number] ANSI-Commercial 2gb4094h-49qq-4gr1-w844-646468a7j908 2df9799u-41xz-9wc3-[id number] ANSI-Commercial 9n26ro20-u39n-4y06-s0o7-141kw64ya853 2z14ph09-d42l-1z56-v5m1-169rr27cl351 ANSI-Commercial [id number]-06v3-a07m-[id number] 97014858-898l-98v3-q10v-07a173h91q75 ANSI-Commercial 72h4571z-2f29-504m-yy3s-ed83wi884d4j 30r5091u-6h76-516h-jw3w-qv99rw498l2c ANSI-Commercial 08e1353u-7rhv-1f35-p211-r3w6cy6751vz 25t1414n-2oae-2d66-q853-q8e0tu5224os ANSI-Commercial 7t7zm231-lo3t-3j24-n8w4-6946sm5s41t4 8n2bv637-nj0y-1r67-e7u8-4572yy2t89m2 ANSI-Commercial 7vs724w6-06fb-2125-c10t-[id number] 8ef866e5-20by-2314-b10k-y2qnm3026129 [employer]/MVP Commercial [id number] Self [id number] ANSI-Commercial pmv25g2k-yum1-9umw-1epn-[id number] uer67a2v-hju4-4see-6yic-[id number] ANSI-Commercial 499kxy9w-lrsq-799i-ckmi-[id number] 212wda2a-glxk-711v-hoff-823mt0522958 ANSI-Commercial [id number]-3ar0-12c1-1p74-6p1d86i10620 0q51550r-8av3-03l3-1x11-8p7v00h86378 ANSI-Commercial 0515w4pk-c954-9039-xg6j-2y392k5t2j8q 2302o8rb-c440-7883-bf6g-8e503b7u4i6r ANSI-Commercial 3m89g58k-i664-81f0-504j-78i163p5b02c 3u54v46i-c652-44f2-339b-11l746f6b20f ANSI-Commercial 5k77814a-8706-07l3-uew3-cro44r2b5l21 5q75758f-0676-69s6-nyu6-rkn82u9w7v27 ANSI-Commercial ub9915y3-n114-7n61-4l56-c3704649819v pm0531u9-s786-1w59-1z36-o6747271527u ANSI-Commercial 31p39733-70dk-9u7k-sl2h-c7hc673m4l16 85d64280-66nc-5e5j-cb9c-e9eq217m0h10 ANSI-Commercial 7s610441-2049-4r17-650k-zf8e12pk5085 7p990203-1691-2f45-861f-mz2o06dn8454 ANSI-Commercial a4c3cdo5-8711-04im-ob15-4w12e5yy1fl8 e0t8vvp8-2435-02mw-fo50-8s65n8qt9gu1 ANSI-Commercial 8806jn0a-0248-3946-1146-xfls1579mfuj 9090vx3b-6035-9223-9880-whia7471nafo ANSI-Commercial 7b74xc42-i0i0-5530-0952-b33536653l20 3e59ki90-w2l8-6635-8292-g92942657o97 ANSI-Commercial 560te531-5dbs-50n4-y65h-22y83so6204f 792lx009-2pam-64r1-v10j-44x78xj8673x ANSI-Commercial j0r8g097-zdf8-305h-to2r-4g421ii6n609 k8z0z801-cji6-488d-yq7x-0p650wy2y277 ANSI-Commercial le1p36o5-7945-157a-6w78-b0828ev70u5m ol0q29c3-9650-270d-6s65-y4517jo11w7p ANSI-Commercial 80849133-3477-61gt-318r-3053m207x2h6 70378512-5241-65cm-285u-5867g073m9m3 ANSI-Commercial dj30kvw8-9002-5187-r241-s36ol7r66918 fd72rvt1-3234-9146-j605-j19yx4s26123 ANSI-Commercial z789jli3-t65e-5w5e-19i9-9i4jri581873 p685cgt0-z83b-4y0d-19z2-4r4kvj461376 ANSI-Commercial 906dm9h0-zt82-49y5-bzq1-81s98pv59gr0 330hp3s3-lq13-28d6-sih3-68v20gg90dc8 ANSI-Commercial 35ks799l-x9is-88tv-n762-gg0kcm082991 88mn552x-o3wx-99dm-n104-us5mhb069233 ANSI-Commercial 3zpd28aq-0529-1j42-p97u-5d19d42q51vo 7nto93ny-9960-0o22-r04m-1e86s89o36cb ANSI-Commercial 09u11t21-x6da-30gk-7865-29i3r3c7621r 76l99a71-v0sf-86be-0734-63u4t1n7729p ANSI-Commercial 9689cak5-s7tl-0y16-7sqj-0m3230ac69i1 1035pbn9-n6se-4x57-2xgn-4d0009cb13v3 ANSI-Commercial 532800s7-tyn6-23hu-4y9b-j1qqc1863i46 952690w4-bjx8-69ig-6f6p-b3oua2877g50 ANSI-Commercial 3171e31v-55b8-3059-m731-pjjo539vs1z4 0135c67y-53a6-4794-m657-btos251db3k4 ANSI-Commercial rqfawwlg-801i-6445-8edd-837wq70p0r43 nnteoatm-473v-9583-8edd-424gm60l4e57 ANSI-Commercial 20543n21-846s-3r8f-552p-7q90q8q000nj 16805m58-860y-6i4z-423z-2i15e8u257xw ANSI-Commercial lo843ab9-tx6q-4a39-2868-563n676k5lz8 nh087zt9-lq1i-0b31-3351-718c490f5eq1 ANSI-Commercial 7qb36nj5-9531-9z30-0zmg-265y9o0th569 1su72ch0-3089-2o32-6ppg-167h3r3vt017 ANSI-Commercial cn81v74t-q0u4-9414-r5e0-51880v7ix859 be16f18s-k2v3-9148-x2c8-18028j3yq477 ANSI-Commercial 17m73k72-v393-44jo-j5ko-36y65778p0hx 09u85v65-l940-20eb-z0tv-30h61413l7bc ANSI-Commercial 597670f2-2563-32xk-1463-d473q29450w9 681333m7-3983-04oy-4052-k429m50140y7 ANSI-Commercial vi09le02-jpr8-26oj-zgeh-9004z7v7g519 dq47cg84-ujo6-03yu-flol-9063j6z0e172 ANSI-Commercial 9x8aa977-3n5j-4332-901b-14r6961d8065 8e9su754-4a2n-3709-431c-44o7403w4295 ANSI-Commercial q2088600-7050-2j57-abq4-ikl62s459x5e u7933711-0258-5v23-ahl9-gih98d795w4a ANSI-Commercial 9g73g1q9-7938-0792-67tu-89ndxt6vdp1w 3t72v5i0-7675-7225-97qw-88cryw3kav7d [employer] [place] PPO 302/307 [id number] SP [id number] ANSI-Commercial 9hmba4lh-1eq6-2m81-7593-2131736afyo7 0ovfn9sp-9tk7-8y46-0374-0433572isdm9 ANSI-Commercial 280335y9-89c5-4231-44y3-030923s4xwm5 819111q8-01v6-9827-34h6-572865l4lgp5 ANSI-Commercial 7n8h72e4-5e16-2peo-u3gv-2ph2c6l88f91 1g8w34q7-5o42-1iun-o4uu-4lf7k7a48o81 ANSI-Commercial t2x59u35-6cui-4274-v5g4-7sg1m57yr5y7 n4z83o23-9vfv-0045-y9o1-2ks5z97pc5g4 ANSI-Commercial 85p4081u-c914-3ztl-y4mu-270cv57087i9 28q4443y-k915-2qwz-x7fd-374jd16911g9 ANSI-Commercial 89680364-98eb-0819-1616-3uv513l3d23t 89614740-07df-5399-5278-7rs956d9f06d [employer] B [id number] S ECR [id number] [employer] [place] PPO 302/307 [id number] SP [id number] [employer] [place] PPO 302/307 [id number] SP [id number] BCBS/Blue Card Commercial [id number] Self [id number] [place] PPO [phone] [id number] SP [id number] [employer] Health Maintenance Organization (HMO) [id number] Self [id number] [place] [id number] SP [id number] Aetna Commercial [id number] [place] [id number] SP [id number] Aetna Ppo/Pos/Nap/MC Commercial [id number] Self SELF PAY UNAVAILABLE SP UNAVAILA BLE [employer] CLAIMS [id number] SP [id number] JOE [id number] SP [id number] JOE [id number] SP [id number] Problems, Conditions, and Diagnoses Code Display Name Description Problem Type Effective Dates Data Source(s) N20.0 [id number] Bilateral nephrolithiasis Problem 07/19/2020 12:00:00 AM EDT eCW1 ([facility]) M54.5 [id number] Low back pain Problem 07/17/2020 12:00:00 AM EDT eCW1 ([facility]) R39.14 [id number] Feeling of incomplete bladder emptying Pr oblem 07/17/2020 12:00:00 AM EDT eCW1 ([facility]) Z91.19 [id number] Noncompliance Problem 07/17/2020 12:00:00 AM EDT eCW1 ([facility]) R35.0 [id number] Urination frequency Problem 07/17/2020 12:00 :00 AM EDT eCW1 ([facility]) Z53.20 [id number] Patient refused evaluation or treatment P roblem 07/17/2020 12:00:00 AM EDT eCW1 ([facility]) G89.29 [id number] Other chronic pain Problem 07/12/2020 12:00: 00 AM EDT eCW1 ([facility]) R10.9 [id number] Right flank pain Problem 03/27/2020 12:00:00 AM EST eCW1 ([facility]) D69.6 [id number] Thrombocytopenia Problem 03/27/2020 12:00:00 AM EST eCW1 ([facility]) Z68.33 [id number] BMI 33.0-33.9,adult Problem 03/27/2020 12:00 :00 AM EST eCW1 ([facility]) S30.0XXS [id number] Contusion of coccyx, sequela Problem 02/23/2020 12:00:00 AM EST eCW1 ([facility]) N83.201 [id number] Ovarian cyst, right Problem 12:00:00 AM EST eCW1 ([facility]) F41.1 [id number] Generalized anxiety disorder Problem 020 12:00:00 AM EDT eCW1 ([facility]) R00.2 [id number] Intermittent palpitations Problem 12/18/2019 12:00:00 AM EDT eCW1 ([facility]) Z53.20 [id number] Recommendation refused by patient Problem 12/18/2019 12:00:00 AM EDT eCW1 ([facility]) Z28.21 [id number] Vaccination refused by patient Problem 12/18/2019 12:00:00 AM EDT eCW1 ([facility]) F41.0 [id number] Panic disorder [episodic paroxysmal anxie ty] Problem 12/18/2019 12:00:00 AM EDT eCW1 ([facility]) Surgeries/Procedures Procedure Description Date Indications Data Source(s) TD TOXOIDS ADSORBED PRSRV FR 7/> YR IM 08/09/2020 12:0 0:00 AM EDT eCW1 ([facility]) Results ID Date Data Source [id number] 01/14/2021 08:30:00 AM EST [facility] Name Value Range Interpretation Code Description Data Eleanor rce(s) Supporting Document(s) SARS-CoV-2 RNA Resp Ql BINH+probe NOT DETECTED [facility] This lab was ordered by NIRMALA west and reported by NIRMALA Burciaga. ID Date Data Source PAP REQUEST FOR SERVICE 12/13/2020 12:00:00 AM EDT eCW1 ([facility]) Name Value Range Interpretation Code Description Data Eleanor rce(s) Supporting Document(s) PAP REQUEST FOR SERVICE eCW1 ( [facility]) ID Date Data Source UA URINALYSIS 07/12/2020 12:00:00 AM EDT eCW1 ([facility]) Name Value Range Interpretation Code Description Data Eleanor rce(s) Supporting Document(s) UA URINALYSIS eCW1 ([facility]) ID Date Data Source HCG SERUM QUALITATIVE 06/24/2020 12:00:00 AM EDT [facility] Name Value Range Interpretation Code Description Data Eleanor rce(s) Supporting Document(s) NEGATIVE NEGATIVE HCG, SERUM QUALITATIVE eC W1 ([facility]) ID Date Data Source [id number] 03/10/2020 12:00:00 AM EST [facility] Name Value Range Interpretation Code Description Data Eleanor rce(s) Supporting Document(s) Carestart Rapid COVID Antigen Test Positive [facility] This lab was reported by Pablo tellez. Procedure Social History Code Duration Value Status Description Data Source(s ) Smoking 12/17/2020 12:00:00 AM EDT Current Smoker completed Curre nt Smoker eCW1 ([facility]) Smoking 12/13/2020 12:00:00 AM EDT Current Smoker completed Curre nt Smoker eCW1 ([facility]) Smoking 08/09/2020 12:00:00 AM EDT Current Smoker completed Curre nt Smoker eCW1 ([facility]) Smoking 08/09/2020 12:00:00 AM EDT Current Smoker completed Curre nt Smoker eCW1 ([facility]) Smoking 08/09/2020 12:00:00 AM EDT Current Smoker completed Curre nt Smoker eCW1 ([facility]) Smoking 08/09/2020 12:00:00 AM EDT Current Smoker completed Curre nt Smoker eCW1 ([facility]) Smoking 08/09/2020 12:00:00 AM EDT Current Smoker completed Curre nt Smoker eCW1 ([facility]) Smoking 08/09/2020 12:00:00 AM EDT Current Smoker completed Curre nt Smoker eCW1 ([facility]) Smoking 07/11/2020 12:00:00 AM EDT Current Smoker completed Curre nt Smoker eCW1 ([facility]) Smoking 07/11/2020 12:00:00 AM EDT Current Smoker completed Curre nt Smoker eCW1 ([facility]) Smoking 07/11/2020 12:00:00 AM EDT Current Smoker completed Curre nt Smoker eCW1 ([facility]) Smoking 07/11/2020 12:00:00 AM EDT Current Smoker completed Curre nt Smoker eCW1 ([facility]) Smoking 07/11/2020 12:00:00 AM EDT Current Smoker completed Curre nt Smoker eCW1 ([facility]) Smoking 07/11/2020 12:00:00 AM EDT Current Smoker completed Curre nt Smoker eCW1 ([facility]) Smoking 07/11/2020 12:00:00 AM EDT Current Smoker completed Curre nt Smoker eCW1 ([facility]) Smoking 07/11/2020 12:00:00 AM EDT Current Smoker completed Curre nt Smoker eCW1 ([facility]) Smoking 07/11/2020 12:00:00 AM EDT Current Smoker completed Curre nt Smoker eCW1 ([facility]) Smoking 07/11/2020 12:00:00 AM EDT Current Smoker completed Curre nt Smoker eCW1 ([facility]) Smoking 07/11/2020 12:00:00 AM EDT Current Smoker completed Curre nt Smoker eCW1 ([facility]) Smoking 06/24/2020 12:00:00 AM EDT Current Smoker completed Curre nt Smoker eCW1 ([facility]) Smoking 06/24/2020 12:00:00 AM EDT Current Smoker completed Curre nt Smoker eCW1 ([facility]) Smoking 06/24/2020 12:00:00 AM EDT Current Smoker completed Curre nt Smoker eCW1 ([facility]) Smoking 06/24/2020 12:00:00 AM EDT Current Smoker completed Curre nt Smoker eCW1 ([facility]) Smoking 05/03/2020 12:00:00 AM EST Current Smoker completed Curre nt Smoker eCW1 ([facility]) Smoking 05/03/2020 12:00:00 AM EST Current Smoker completed Curre nt Smoker eCW1 ([facility]) Smoking 05/03/2020 12:00:00 AM EST Current Smoker completed Curre nt Smoker eCW1 ([facility]) Smoking 05/03/2020 12:00:00 AM EST Current Smoker completed Curre nt Smoker eCW1 ([facility]) Smoking 05/03/2020 12:00:00 AM EST Current Smoker completed Curre nt Smoker eCW1 ([facility]) Smoking 03/22/2020 12:00:00 AM EST Current Smoker completed Curre nt Smoker eCW1 ([facility]) Smoking 03/22/2020 12:00:00 AM EST Current Smoker completed Curre nt Smoker eCW1 ([facility]) Smoking 03/22/2020 12:00:00 AM EST Current Smoker completed Curre nt Smoker eCW1 ([facility]) Smoking 03/22/2020 12:00:00 AM EST Current Smoker completed Curre nt Smoker eCW1 ([facility]) Smoking 03/22/2020 12:00:00 AM EST Current Smoker completed Curre nt Smoker eCW1 ([facility]) Smoking 03/22/2020 12:00:00 AM EST Current Smoker completed Curre nt Smoker eCW1 ([facility]) Smoking 03/22/2020 12:00:00 AM EST Current Smoker completed Curre nt Smoker eCW1 ([facility]) Smoking 03/22/2020 12:00:00 AM EST Current Smoker completed Curre nt Smoker eCW1 ([facility]) Smoking 02/22/2020 12:00:00 AM EST Never Smoker completed Never S moker eCW1 ([facility]) Smoking 02/22/2020 12:00:00 AM EST Never Smoker completed Never S moker eCW1 ([facility]) Smoking 02/22/2020 12:00:00 AM EST Never Smoker completed Never S moker eCW1 ([facility]) Smoking 02/22/2020 12:00:00 AM EST Never Smoker completed Never S moker eCW1 ([facility]) Smoking 02/22/2020 12:00:00 AM EST Never Smoker completed Never S moker eCW1 ([facility]) Smoking 02/22/2020 12:00:00 AM EST Never Smoker completed Never S moker eCW1 ([facility]) Smoking 02/22/2020 12:00:00 AM EST Never Smoker completed Never S moker eCW1 ([facility]) Smoking 01/21/2020 12:00:00 AM EST Never Smoker completed Never S moker eCW1 ([facility]) Smoking 01/21/2020 12:00:00 AM EST Never Smoker completed Never S moker eCW1 ([facility]) Smoking 01/21/2020 12:00:00 AM EST Never Smoker completed Never S moker eCW1 ([facility]) Smoking 01/21/2020 12:00:00 AM EST Never Smoker completed Never S moker eCW1 ([facility]) Smoking 01/21/2020 12:00:00 AM EST Never Smoker completed Never S moker eCW1 ([facility]) Smoking 01/21/2020 12:00:00 AM EST Never Smoker completed Never S moker eCW1 ([facility]) Smoking 01/21/2020 12:00:00 AM EST Never Smoker completed Never S moker eCW1 ([facility]) Smoking 01/21/2020 12:00:00 AM EST Never Smoker completed Never S moker eCW1 ([facility]) Smoking 01/21/2020 12:00:00 AM EST Never Smoker completed Never S moker eCW1 ([facility]) Smoking 01/05/2020 12:00:00 AM EST Never Smoker completed Never S moker eCW1 ([facility]) Smoking 01/05/2020 12:00:00 AM EST Never Smoker completed Never S moker eCW1 ([facility]) Smoking 01/05/2020 12:00:00 AM EST Never Smoker completed Never S moker eCW1 ([facility]) Smoking 01/05/2020 12:00:00 AM EST Never Smoker completed Never S moker eCW1 ([facility]) Smoking 01/05/2020 12:00:00 AM EST Never Smoker completed Never S moker eCW1 ([facility]) Smoking 01/01/2020 12:00:00 AM EDT Never Smoker completed Never S moker eCW1 ([facility]) Smoking 12/18/2019 12:00:00 AM EDT Never Smoker completed Never S moker eCW1 ([facility]) Smoking 12/18/2019 12:00:00 AM EDT Never Smoker completed Never S moker eCW1 ([facility]) Vital Signs ID Date Data Source UNK Name Value Range Interpretation Code Description Data Source(s) Body height 63 [in_i] 63 [in_i] eCW1 ([facility]) Body weight 198.6 [lb_av] 198.6 [lb_av] eCW1 ([facility]) Body mass index (BMI) [Ratio] 35.18 kg/m2 35.18 kg/m2 eCW1 ([facility]) Systolic blood pressure 108 mm[Hg] 108 mm[Hg] e CW1 ([facility]) Diastolic blood pressure 68 mm[Hg] 68 mm[Hg] eCW1 ([facility]) Body weight 198.0 [lb_av] 198.0 [lb_av] eCW1 ([facility]) Body height 63 [in_i] 63 [in_i] eCW1 ([facility]) Body mass index (BMI) [Ratio] 35.07 kg/m2 35.07 kg/m2 eCW1 ([facility]) Heart rate 68 /min 68 /min eCW1 ([facility]) Respiratory rate 18 /min 18 /min eCW1 ([facility]) Body temperature 97.9 [degF] 97.9 [degF] eCW1 ( [facility]) Systolic blood pressure 108 mm[Hg] 108 mm[Hg] e CW1 ([facility]) Diastolic blood pressure 70 mm[Hg] 70 mm[Hg] eCW1 ([facility]) Body height 63 [in_i] 63 [in_i] eCW1 ([facility]) Respiratory rate 18 /min 18 /min eCW1 ([facility]) Body weight 197.6 [lb_av] 197.6 [lb_av] eCW1 ([facility]) Systolic blood pressure 114 mm[Hg] 114 mm[Hg] e CW1 ([facility]) Body temperature 98.3 [degF] 98.3 [degF] eCW1 ( [facility]) Body mass index (BMI) [Ratio] 35.00 kg/m2 35.00 kg/m2 eCW1 ([facility]) Heart rate 78 /min 78 /min eCW1 ([facility]) Diastolic blood pressure 72 mm[Hg] 72 mm[Hg] eCW1 ([facility]) Body mass index (BMI) [Ratio] 34.36 kg/m2 34.36 kg/m2 eCW1 ([facility]) Heart rate 86 /min 86 /min eCW1 ([facility]) Respiratory rate 18 /min 18 /min eCW1 ([facility]) Body temperature 97.9 [degF] 97.9 [degF] eCW1 ( [facility]) Systolic blood pressure 122 mm[Hg] 122 mm[Hg] e CW1 ([facility]) Diastolic blood pressure 80 mm[Hg] 80 mm[Hg] eCW1 ([facility]) Body weight 194 [lb_av] 194 [lb_av] [facility] Body height 63 [in_i] 63 [in_i] eCW1 ([facility]) Body weight 190.4 [lb_av] 190.4 [lb_av] eCW1 ([facility]) Body height 63 [in_i] 63 [in_i] eCW1 ([facility]) Body mass index (BMI) [Ratio] 33.72 kg/m2 33.72 kg/m2 eCW1 ([facility]) Heart rate 98 /min 98 /min eCW1 ([facility]) Respiratory rate 18 /min 18 /min eCW1 ([facility]) Body temperature 97.5 [degF] 97.5 [degF] eCW1 ( [facility]) Systolic blood pressure 132 mm[Hg] 132 mm[Hg] e CW1 ([facility]) Diastolic blood pressure 84 mm[Hg] 84 mm[Hg] eCW1 ([facility]) Body weight 188 [lb_av] 188 [lb_av] [facility] Body height 63 [in_i] 63 [in_i] eCW1 ([facility]) Body mass index (BMI) [Ratio] 33.30 kg/m2 33.30 kg/m2 eCW1 ([facility]) Heart rate 91 /min 91 /min eCW1 ([facility]) Respiratory rate 17 /min 17 /min eCW1 ([facility]) Body temperature 97.9 [degF] 97.9 [degF] eCW1 ( [facility]) Systolic blood pressure 136 mm[Hg] 136 mm[Hg] e CW1 ([facility]) Diastolic blood pressure 84 mm[Hg] 84 mm[Hg] eCW1 ([facility]) Body weight 191.6 [lb_av] 191.6 [lb_av] eCW1 ([facility]) Body height 63 [in_i] 63 [in_i] eCW1 ([facility]) Body mass index (BMI) [Ratio] 33.94 kg/m2 33.94 kg/m2 eCW1 ([facility]) Heart rate 74 /min 74 /min eCW1 ([facility]) Respiratory rate 18 /min 18 /min eCW1 ([facility]) Body temperature 97.8 [degF] 97.8 [degF] eCW1 ( [facility]) Systolic blood pressure 142 mm[Hg] 142 mm[Hg] e CW1 ([facility]) Diastolic blood pressure 88 mm[Hg] 88 mm[Hg] eCW1 ([facility]) Body weight 192.6 [lb_av] 192.6 [lb_av] eCW1 ([facility]) Body height 63 [in_i] 63 [in_i] eCW1 ([facility]) Body mass index (BMI) [Ratio] 34.11 kg/m2 34.11 kg/m2 eCW1 ([facility]) Heart rate 75 /min 75 /min eCW1 ([facility]) Respiratory rate 18 /min 18 /min eCW1 ([facility]) Body temperature 97.0 [degF] 97.0 [degF] eCW1 ( [facility]) Systolic blood pressure 116 mm[Hg] 116 mm[Hg] e CW1 ([facility]) Diastolic blood pressure 76 mm[Hg] 76 mm[Hg] eCW1 ([facility]) Body weight 193.4 [lb_av] 193.4 [lb_av] eCW1 ([facility]) Body mass index (BMI) [Ratio] 34.26 kg/m2 34.26 kg/m2 eCW1 ([facility]) Respiratory rate 18 /min 18 /min eCW1 ([facility]) Body height 63 [in_i] 63 [in_i] eCW1 ([facility]) Body temperature 97.8 [degF] 97.8 [degF] eCW1 ( [facility]) Heart rate 82 /min 82 /min eCW1 ([facility]) Systolic blood pressure 112 mm[Hg] 112 mm[Hg] e CW1 ([facility]) Diastolic blood pressure 70 mm[Hg] 70 mm[Hg] eCW1 ([facility]) Patient Treatment Plan of Care Planned Activity Planned Date Details Description Data Source (s) 21 DAY Ethinyl Estradiol 0.893076 MG/HR / Etonogestrel 0.005 MG/HR Vaginal Ring [NuvaRing] 12/13/2020 12:00:00 AM EDT eCW1 ([facility]) 21 DAY Ethinyl Estradiol 0.625132 MG/HR / Etonogestrel 0.005 MG/HR Vaginal Ring [NuvaRing] 12/13/2020 12:00:00 AM EDT eCW1 ([facility]) Tamsulosin hydrochloride 0.4 MG Oral Capsule 07/19/2020 12:00:00 AM EDT eCW1 ([facility]) Tamsulosin hydrochloride 0.4 MG Oral Capsule 07/19/2020 12:00:00 AM EDT eCW1 ([facility]) Tamsulosin hydrochloride 0.4 MG Oral Capsule 07/19/2020 12:00:00 AM EDT eCW1 ([facility]) Tamsulosin hydrochloride 0.4 MG Oral Capsule 07/19/2020 12:00:00 AM EDT eCW1 ([facility]) Tamsulosin hydrochloride 0.4 MG Oral Capsule 07/19/2020 12:00:00 AM EDT eCW1 ([facility]) Tamsulosin hydrochloride 0.4 MG Oral Capsule 07/19/2020 12:00:00 AM EDT eCW1 ([facility]) Tamsulosin hydrochloride 0.4 MG Oral Capsule 07/19/2020 12:00:00 AM EDT eCW1 ([facility]) Tamsulosin hydrochloride 0.4 MG Oral Capsule 07/19/2020 12:00:00 AM EDT eCW1 ([facility]) Sulfamethoxazole 800 MG / Trimethoprim 160 MG Oral Tab let 03/22/2020 12:00:00 AM EST eCW1 ([facility]) Folic Acid 0.4 MG Oral Tablet 03/22/2020 12:00:00 AM EST eCW1 ([facility]) Sulfamethoxazole 800 MG / Trimethoprim 160 MG Oral Tab let 03/22/2020 12:00:00 AM EST eCW1 ([facility]) Folic Acid 0.4 MG Oral Tablet 03/22/2020 12:00:00 AM EST eCW1 ([facility]) Sulfamethoxazole 800 MG / Trimethoprim 160 MG Oral Tab let 03/22/2020 12:00:00 AM EST eCW1 ([facility]) Folic Acid 0.4 MG Oral Tablet 03/22/2020 12:00:00 AM EST eCW1 ([facility]) Sulfamethoxazole 800 MG / Trimethoprim 160 MG Oral Tab let 03/22/2020 12:00:00 AM EST eCW1 ([facility]) Folic Acid 0.4 MG Oral Tablet 03/22/2020 12:00:00 AM EST eCW1 ([facility]) Sulfamethoxazole 800 MG / Trimethoprim 160 MG Oral Tab let 03/22/2020 12:00:00 AM EST eCW1 ([facility]) Folic Acid 0.4 MG Oral Tablet 03/22/2020 12:00:00 AM EST eCW1 ([facility]) Sulfamethoxazole 800 MG / Trimethoprim 160 MG Oral Tab let 03/22/2020 12:00:00 AM EST eCW1 ([facility]) Folic Acid 0.4 MG Oral Tablet 03/22/2020 12:00:00 AM EST eCW1 ([facility]) Sulfamethoxazole 800 MG / Trimethoprim 160 MG Oral Tab let 03/22/2020 12:00:00 AM EST eCW1 ([facility]) Folic Acid 0.4 MG Oral Tablet 03/22/2020 12:00:00 AM EST eCW1 ([facility]) Sulfamethoxazole 800 MG / Trimethoprim 160 MG Oral Tab let 03/22/2020 12:00:00 AM EST eCW1 ([facility]) Folic Acid 0.4 MG Oral Tablet 03/22/2020 12:00:00 AM EST eCW1 ([facility]) buspirone hydrochloride 10 MG Oral Tablet 02/22/2020 12:00:00 AM ES T eCW1 ([facility]) buspirone hydrochloride 15 MG Oral Tablet 02/22/2020 12:00:00 AM ES T eCW1 ([facility]) buspirone hydrochloride 10 MG Oral Tablet 02/22/2020 12:00:00 AM ES T eCW1 ([facility]) buspirone hydrochloride 15 MG Oral Tablet 02/22/2020 12:00:00 AM ES T eCW1 ([facility]) buspirone hydrochloride 10 MG Oral Tablet 02/22/2020 12:00:00 AM ES T eCW1 ([facility]) buspirone hydrochloride 15 MG Oral Tablet 02/22/2020 12:00:00 AM ES T eCW1 ([facility]) buspirone hydrochloride 10 MG Oral Tablet 02/22/2020 12:00:00 AM ES T eCW1 ([facility]) buspirone hydrochloride 15 MG Oral Tablet 02/22/2020 12:00:00 AM ES T eCW1 ([facility]) buspirone hydrochloride 10 MG Oral Tablet 02/22/2020 12:00:00 AM ES T eCW1 ([facility]) buspirone hydrochloride 15 MG Oral Tablet 02/22/2020 12:00:00 AM ES T eCW1 ([facility]) buspirone hydrochloride 10 MG Oral Tablet 02/22/2020 12:00:00 AM ES T eCW1 ([facility]) buspirone hydrochloride 15 MG Oral Tablet 02/22/2020 12:00:00 AM ES T eCW1 ([facility]) buspirone hydrochloride 10 MG Oral Tablet 02/22/2020 12:00:00 AM ES T eCW1 ([facility]) buspirone hydrochloride 15 MG Oral Tablet 02/22/2020 12:00:00 AM ES T eCW1 ([facility]) buspirone hydrochloride 10 MG Oral Tablet 02/22/2020 12:00:00 AM ES T eCW1 ([facility]) buspirone hydrochloride 15 MG Oral Tablet 02/22/2020 12:00:00 AM ES T eCW1 ([facility]) buspirone hydrochloride 10 MG Oral Tablet 02/22/2020 12:00:00 AM ES T eCW1 ([facility]) buspirone hydrochloride 15 MG Oral Tablet 02/22/2020 12:00:00 AM ES T eCW1 ([facility]) buspirone hydrochloride 10 MG Oral Tablet 02/22/2020 12:00:00 AM ES T eCW1 ([facility]) buspirone hydrochloride 15 MG Oral Tablet 02/22/2020 12:00:00 AM ES T eCW1 ([facility]) buspirone hydrochloride 10 MG Oral Tablet 02/22/2020 12:00:00 AM ES T eCW1 ([facility]) buspirone hydrochloride 15 MG Oral Tablet 02/22/2020 12:00:00 AM ES T eCW1 ([facility]) buspirone hydrochloride 10 MG Oral Tablet 02/22/2020 12:00:00 AM ES T eCW1 ([facility]) buspirone hydrochloride 15 MG Oral Tablet 02/22/2020 12:00:00 AM ES T eCW1 ([facility]) buspirone hydrochloride 10 MG Oral Tablet 02/22/2020 12:00:00 AM ES T eCW1 ([facility]) buspirone hydrochloride 15 MG Oral Tablet 02/22/2020 12:00:00 AM ES T eCW1 ([facility]) buspirone hydrochloride 10 MG Oral Tablet 02/22/2020 12:00:00 AM ES T eCW1 ([facility]) buspirone hydrochloride 15 MG Oral Tablet 02/22/2020 12:00:00 AM ES T eCW1 ([facility]) buspirone hydrochloride 10 MG Oral Tablet 02/22/2020 12:00:00 AM ES T eCW1 ([facility]) buspirone hydrochloride 15 MG Oral Tablet 02/22/2020 12:00:00 AM ES T eCW1 ([facility]) buspirone hydrochloride 10 MG Oral Tablet 02/22/2020 12:00:00 AM ES T eCW1 ([facility]) buspirone hydrochloride 15 MG Oral Tablet 02/22/2020 12:00:00 AM ES T eCW1 ([facility]) buspirone hydrochloride 10 MG Oral Tablet 02/22/2020 12:00:00 AM ES T eCW1 ([facility]) buspirone hydrochloride 15 MG Oral Tablet 02/22/2020 12:00:00 AM ES T eCW1 ([facility]) buspirone hydrochloride 10 MG Oral Tablet 02/22/2020 12:00:00 AM ES T eCW1 ([facility]) buspirone hydrochloride 15 MG Oral Tablet 02/22/2020 12:00:00 AM ES T eCW1 ([facility]) buspirone hydrochloride 15 MG Oral Tablet 02/22/2020 12:00:00 AM ES T eCW1 ([facility]) buspirone hydrochloride 10 MG Oral Tablet 02/22/2020 12:00:00 AM ES T eCW1 ([facility]) buspirone hydrochloride 15 MG Oral Tablet 02/22/2020 12:00:00 AM ES T eCW1 ([facility]) buspirone hydrochloride 10 MG Oral Tablet 02/22/2020 12:00:00 AM ES T eCW1 ([facility]) buspirone hydrochloride 15 MG Oral Tablet 02/22/2020 12:00:00 AM ES T eCW1 ([facility]) buspirone hydrochloride 10 MG Oral Tablet 02/22/2020 12:00:00 AM ES T eCW1 ([facility]) buspirone hydrochloride 15 MG Oral Tablet 02/22/2020 12:00:00 AM ES T eCW1 ([facility]) buspirone hydrochloride 10 MG Oral Tablet 02/22/2020 12:00:00 AM ES T eCW1 ([facility]) buspirone hydrochloride 15 MG Oral Tablet 02/22/2020 12:00:00 AM ES T eCW1 ([facility]) buspirone hydrochloride 10 MG Oral Tablet 02/22/2020 12:00:00 AM ES T eCW1 ([facility]) buspirone hydrochloride 15 MG Oral Tablet 02/22/2020 12:00:00 AM ES T eCW1 ([facility]) buspirone hydrochloride 10 MG Oral Tablet 02/22/2020 12:00:00 AM ES T eCW1 ([facility]) buspirone hydrochloride 15 MG Oral Tablet 02/22/2020 12:00:00 AM ES T eCW1 ([facility]) buspirone hydrochloride 10 MG Oral Tablet 02/22/2020 12:00:00 AM ES T eCW1 ([facility]) buspirone hydrochloride 15 MG Oral Tablet 01/22/2020 12:00:00 AM ES T eCW1 ([facility]) buspirone hydrochloride 15 MG Oral Tablet 01/22/2020 12:00:00 AM ES T eCW1 ([facility]) buspirone hydrochloride 15 MG Oral Tablet 01/22/2020 12:00:00 AM ES T eCW1 ([facility]) buspirone hydrochloride 15 MG Oral Tablet 01/22/2020 12:00:00 AM ES T eCW1 ([facility]) buspirone hydrochloride 15 MG Oral Tablet 01/22/2020 12:00:00 AM ES T eCW1 ([facility]) buspirone hydrochloride 15 MG Oral Tablet 01/22/2020 12:00:00 AM ES T eCW1 ([facility]) buspirone hydrochloride 15 MG Oral Tablet 01/22/2020 12:00:00 AM ES T eCW1 ([facility]) buspirone hydrochloride 7.5 MG Oral Tablet 01/01/2020 12:00:00 AM E DT eCW1 ([facility]) buspirone hydrochloride 7.5 MG Oral Tablet 01/01/2020 12:00:00 AM E DT eCW1 ([facility]) buspirone hydrochloride 7.5 MG Oral Tablet 01/01/2020 12:00:00 AM E DT eCW1 ([facility]) buspirone hydrochloride 7.5 MG Oral Tablet 01/01/2020 12:00:00 AM E DT eCW1 ([facility]) buspirone hydrochloride 7.5 MG Oral Tablet 01/01/2020 12:00:00 AM E DT eCW1 ([facility]) buspirone hydrochloride 7.5 MG Oral Tablet 01/01/2020 12:00:00 AM E DT eCW1 ([facility]) buspirone hydrochloride 7.5 MG Oral Tablet 01/01/2020 12:00:00 AM E DT eCW1 ([facility]) buspirone hydrochloride 7.5 MG Oral Tablet 01/01/2020 12:00:00 AM E DT eCW1 ([facility]) buspirone hydrochloride 5 MG Oral Tablet 12/18/2019 12:00:00 AM EDT eCW1 ([facility]) buspirone hydrochloride 5 MG Oral Tablet 12/18/2019 12:00:00 AM EDT eCW1 ([facility])
[2021-01-22] MEDS ORDERED: HYDR-3713 PO (07:28)
[2021-01-22] MEDS ORDERED: KETO10TAB PO (07:28)
[2021-01-22] MEDS ORDERED: ONDA4TAB6 PO (07:28)
[2021-01-22] MEDS ORDERED: FLOM0.4C39 PO (07:28)
[2021-01-22 08:20] VITALS: BP 138/90
== END 2021-01-22 08:20 | disposition home or self-care (01) ==
LOC: M ED 05:10
DX: N13.2 Hydronephrosis with renal and ureteral calculous obstruction (principal); R10.9 Unspecified abdominal pain; F17.200 Nicotine dependence, unspecified, uncomplicated; Z88.0 Allergy status to penicillin; Z79.891 Long term (current) use of opiate analgesic; Z79.899 Other long term (current) drug therapy
CPT/HCPCS: 74176; 80048; 81001; 83735; 84702; 85025; 87086; 96361; 96374; 99284; J1885; J2405

== ENCOUNTER → 2021-03-20 | Outpatient (CLI) | payer OTHER ==
[~2021-03-20] MED LIST changes: +ETON1VAG3; +FLOM0.4C39 PO; +HYDR-3713 PO; +ONDA4TAB6 PO; +VENL37.598
== END ==
LOC: M PLAIMG 15:22
PROVIDERS: ATTEND Physician Assistant
DX: N20.0 Calculus of kidney (principal)

== ENCOUNTER → 2021-03-21 | Outpatient (CLI) | payer OTHER ==
[~2021-03-21] MED LIST changes: +VENL150C43 PO
[2021-03-21 10:39] LABS: BASO # 0.1 10^3/uL (0.0-0.2); BASO % 0.8 % (0.0-1.0); EOS # 0.2 10^3/uL (0.0-0.5); EOS % 2.5 % (0.0-3.0); HEMATOCRIT 41.9 % (36.0-47.0); HEMOGLOBIN 14.3 g/dl (12.0-15.5); LYMPH # 1.3 10^3/uL (1.5-5.0); MEAN CORPUSCULAR HEMOGLOBIN 30.8 pg (27.0-33.0); MEAN CORPUSCULAR HGB CONC 34.1 g/dl (32.0-36.5); MEAN CORPUSCULAR VOLUME 90.1 fl (80.0-96.0); MONO # 0.4 10^3/uL (0.0-0.8); MONO % 5.5 % (2.0-8.0); NEUTROPHILS # 5.5 10^3/uL (1.5-8.5); NEUTROPHILS % 73.8 % (36.0-66.0); PLATELET COUNT, AUTOMATED 146 10^3/uL (150-450); RED BLOOD COUNT 4.65 10^6/uL (4.00-5.40); WHITE BLOOD COUNT 7.5 10^3/uL (4.0-10.0)
[2021-03-21 13:52] LABS: CALCIUM LEVEL 9.4 MG/DL (8.5-10.1); CREATININE FOR GFR 1.15 MG/DL (0.55-1.30); GLOMERULAR FILTRATION RATE 57.9 (>60); POTASSIUM SERUM 3.9 MEQ/L (3.5-5.1)
== END ==
LOC: M PLAIMG 09:25
PROVIDERS: ATTEND Physician Assistant
DX: N20.0 Calculus of kidney (principal)

== ENCOUNTER → 2021-03-22 | Outpatient (CLI) | payer OTHER | LOC: M LABSMTC 13:31 | PROVIDERS: ATTEND Anesthesiology | DX: Z01.818 Encounter for other preprocedural examination (principal); Z11.52 Encounter for screening for COVID-19 ==

== ENCOUNTER 2021-03-24 06:03 | Day surgery (SDC) | payer OTHER ==
[~2021-03-24] VITALS: Ht 160 cm; Wt 88.0 kg
[~2021-03-24 06:03] MED LIST changes: +CIPROFLOXACIN 400 MG in IV 1 EA IV ONE; +LR 1,000 ML IV ONE
[2021-03-24] MEDS ORDERED: CONRAY-60 60% 50ML VIAL (Q9961) As Ordered ONE (07:25)
[2021-03-24] MEDS ORDERED: propofoL 200 MG/20 ML VIAL As Ordered ONE (07:50)
[2021-03-24] MEDS ORDERED: LIDOCAINE 2% 100MG/5ML SDV (FOR ANES.) As Ordered ONE (07:50)
[2021-03-24] MEDS ORDERED: MIDAZOLAM INJ 2MG/2ML VIAL (J2250 PER 1MG) As Ordered ONE (07:50)
[2021-03-24] MEDS ORDERED: dexameTHASONE 4 MG/ML 1ML VIAL (J1100 PER 1MG) As Ordered ONE (07:50)
[2021-03-24] MEDS ORDERED: fentaNYL 100 MCG/2 ML INJECTION (J3010) As Ordered ONE (07:50)
[2021-03-24] MEDS ORDERED: ONDANSETRON 4MG/2ML VIAL As Ordered ONE (07:50)
[2021-03-24] MEDS ORDERED: ACETAMINOPHEN 1000MG 100ML IV BTL (OFIRMEV) (J0131 PER 10MG) As Ordered ONE (07:51)
[2021-03-24] MEDS ORDERED: LABETALOL 100MG/20ML VIAL As Ordered ONE ×2 (08:16→09:05)
[2021-03-24] MEDS ORDERED: LACRILUBE (AKWA TEARS) OPHTH OINT 3.5 GM As Ordered ONE (08:34)
[2021-03-24] MEDS: LABETALOL 100MG/20ML VIAL IV PRN ×5 (09:09→09:42)
[2021-03-24] MEDS ORDERED: OXYC1TAB23 PO (09:10)
[2021-03-24] MEDS ORDERED: oxyCODONE 5MG TAB PO PRN (09:10)
[2021-03-24] MEDS ORDERED: fentaNYL 100 MCG/2 ML INJECTION (J3010) IV PRN (09:10)
[2021-03-24] MEDS ORDERED: ONDANSETRON 4MG/2ML VIAL IV PRN (09:10)
[2021-03-24] MEDS ORDERED: LR 1,000 ML IV SCH (09:10)
[2021-03-24] MEDS ORDERED: OXYB5TAB10 PO (09:10)
[2021-03-24] MEDS ORDERED: oxyBUTYnin 5 MG TAB PO PRN (09:15)
[2021-03-24] MEDS ORDERED: PERCOCET 5MG/325MG TAB PO PRN (09:15)
[2021-03-24] MEDS ORDERED: hydrALAZINE 20MG/ML 1ML VIAL (J0360 PER 20MG) As Ordered ONE (09:54)
[2021-03-24] MEDS: hydrALAZINE 20MG/ML 1ML VIAL (J0360 PER 20MG) IV PRN ×2 (09:55→10:08)
[2021-03-24 10:08] VITALS: BP 157/92
[2021-03-24 10:45] VITALS: BP 139/82
[2021-03-28 18:09] LABS: CA Oxalate Dihy 10 % (.); Ca Ox Monohydrate 90 % (.); Size 5x2 mm (.)
== END 2021-03-24 10:55 | disposition home or self-care (01) ==
LOC: M SDC 06:03
PROVIDERS: ATTEND Urology
DX: N20.1 Calculus of ureter (principal); F43.10 Post-traumatic stress disorder, unspecified; F32.9 Major depressive disorder, single episode, unspecified; F41.9 Anxiety disorder, unspecified; Z79.899 Other long term (current) drug therapy; Z87.891 Personal history of nicotine dependence; Z88.0 Allergy status to penicillin
CPT/HCPCS: 52356; 74420; 81025; 82365; 88300; C1769; C2617; J0131; J0360; J0744; J1100; J2250; J2405; J3010; Q9961

== ENCOUNTER → 2021-07-20 | Outpatient (CLI) | payer OTHER ==
[~2021-07-20] MED LIST changes: -CIPROFLOXACIN 400 MG in IV 1 EA IV ONE; -LR 1,000 ML IV ONE; +OXYB5TAB10 PO; +OXYC1TAB23 PO
[2021-07-20 17:34] LABS: APPEARANCE, URINE CLEAR (CLEAR); BACTERIA, URINE AUTO 1+ (NEGATIVE); BILIRUBIN, URINE AUTO NEGATIVE (NEGATIVE); BLOOD, URINE BLOOD NEGATIVE (NEGATIVE); COLOR, URINE STRAW (YELLOW); GLUCOSE, URINE (UA) AUTO NEGATIVE (NEGATIVE); KETONE, URINE AUTO NEGATIVE (NEGATIVE); LEUKOCYTE ESTERASE, URINE AUTO NEGATIVE (NEGATIVE); NITRITE, URINE AUTO NEGATIVE (NEGATIVE); PROTEIN, URINE AUTO NEGATIVE (NEGATIVE); RBC, URINE AUTO 0 /HPF (0-3); SPECIFIC GRAVITY URINE AUTO 1.005 (1.002-1.035); SQUAMOUS EPITHELIAL CELL UR AU 0 /HPF (0-6); UROBILINOGEN, URINE AUTO 0.2 mg/dL (0.0-2.0); WBC, URINE AUTO 1 /HPF (0-3)
[2021-07-20 18:13] LABS: BLOOD UREA NITROGEN 10 MG/DL (7-18); CALCIUM LEVEL 9.7 MG/DL (8.5-10.1); CARBON DIOXIDE LEVEL 25 MEQ/L (21-32); CHLORIDE LEVEL 107 MEQ/L (98-107); CREATININE FOR GFR 0.89 MG/DL (0.55-1.30); GLOMERULAR FILTRATION RATE > 60.0 (>60); GLUCOSE, FASTING 76 MG/DL (70-100); POTASSIUM SERUM 4.2 MEQ/L (3.5-5.1); SODIUM LEVEL 139 MEQ/L (136-145)
== END ==
LOC: M LAB 16:45
PROVIDERS: ATTEND Student in an Organized Health Care Education/Training Program
DX: I10 Essential (primary) hypertension (principal)

== ENCOUNTER 2021-10-01 16:20 | Emergency (ER) | payer OTHER ==
[~2021-10-01] VITALS: Ht 157.5 cm; Wt 93.2 kg
[2021-10-01] MEDS ORDERED: CHLO125TA PO (16:36)
[2021-10-01] MEDS ORDERED: IBUP-1114 PO (16:36)
[2021-10-01] MEDS ORDERED: CYCL-707 PO (19:03)
[2021-10-01 19:24] VITALS: BP 130/84
[2021-10-01] MEDS ORDERED: CYCLOBENZAPRINE 10MG TABLET PO ONE (19:30)
== END 2021-10-01 19:34 | disposition home or self-care (01) ==
LOC: M ED 16:20
DX: S13.4XXA Sprain of ligaments of cervical spine, initial encounter (principal); S06.0X0A Concussion without loss of consciousness, initial encounter; I10 Essential (primary) hypertension; Y92.34 Swimming pool (public) as the place of occurrence of the external cause; Y93.11 Activity, swimming; Y99.9 Unspecified external cause status; Z88.0 Allergy status to penicillin; Z79.3 Long term (current) use of hormonal contraceptives; Z79.891 Long term (current) use of opiate analgesic; Z79.899 Other long term (current) drug therapy

== ENCOUNTER → 2021-10-30 | Outpatient (CLI) | payer OTHER ==
[~2021-10-30] MED LIST changes: +CHLO125TA PO; +CYCL-707 PO; +IBUP-1114 PO
== END ==
LOC: M RAD 15:58
PROVIDERS: ATTEND Urology
DX: N20.0 Calculus of kidney (principal)

== ENCOUNTER → 2021-12-27 | Outpatient (REF) | payer OTHER | LOC: M SFHCWAGY 09:59 | PROVIDERS: ATTEND Obstetrics & Gynecology | DX: Z12.4 Encounter for screening for malignant neoplasm of cervix (principal) ==